=== PATIENT | female | born 1955 | race Caucasian/White ===

== ENCOUNTER 2016-08-08 08:13 | Observation (INO) | payer OTHER ==
[2016-08-08 08:29] VITALS: BMI 21.4
--- NOTE | 2016-08-08 08:46 | PDOC ---
History of Present Illness - General Chief Complaint: Syncope/Near Syncope Stated Complaint: SYNCOPY Time Seen by Provider: 08/08/16 08:36 History Source: Patient Exam Limitations: No Limitations - History of Present Illness Initial Comments: CHIEF COMPLAINT: 61 y/o afebrile female with PMH MR, depression, hypothyroidism sent in from [facility] for syncopal episode. HISTORY OF PRESENT ILLNESS: The [facility] employee who is here with the patient states she got up from the dining table to go to the bathroom this morning and passed out. The employee was able to catch the patient and gently lower her to the ground. She admits the patient was a little "groggy" at first but returned to normal mentation very quickly. Prior to getting up to go to the bathroom the patient had complained of abdominal pain. The [facility] worker denies head trauma, fever, n/v/d, CP, SOB, back pain, decreased appetite. The [employer] employee states the patient has normal BMs. The patient did have breakfast prior to syncopal episode. The patient states she currently has no pain. Vital signs on arrival are within normal limits. REVIEW OF SYSTEMS: (Provided by jail worker) GENERAL/CONSTITUTIONAL: No fever/chills. No weakness. No weight change. HEAD, EYES, EARS, NOSE AND THROAT: No ear pain or discharge. No sore throat. CARDIOVASCULAR: No chest pain or shortness of breath. RESPIRATORY: No cough, wheezing, or hemoptysis. GASTROINTESTINAL: +abd pain. No nausea, vomiting, diarrhea, constipation. GENITOURINARY: No dysuria, frequency, or change in urination. MUSCULOSKELETAL: No joint or muscle swelling or pain. No neck or back pain. SKIN: No rash or easy bruising. NEUROLOGIC: +LOC. No headache, vertigo, or loss of sensation. PHYSICAL EXAM: GENERAL: The patient is awake, alert, and fully oriented, in no acute distress. She is currently denying pain. HEAD: Normal with no signs of trauma. ENT: Pupils equal, round and reactive to light, extraocular movements intact, sclera anicteric, conjunctiva clear. Neck supple. LUNGS: Clear to auscultation bilaterally. Normal excursion. No respiratory distress or use of accessory muscles. CV: RRR, S1/S2, no MRG. Cap refill < 2 sec. ABDOMEN: Soft, non-distended, very minimal TTP of epigastric region. EXTREMITIES: Normal range of motion, no edema. NEUROLOGICAL: Normal speech, normal gait. CN II-XII grossly intact. PSYCH: Normal mood, normal affect. SKIN: Warm, dry, normal turgor, no rashes or lesions noted. Past History - Past Medical History Allergies/Adverse Reactions: Allergies Allergy/AdvReac Type Severity Reaction Status Date / Time aspirin Allergy Unknown Verified 08/08/16 08:26 Sulfa (Sulfonamide Allergy Unknown Verified 08/08/16 08:26 Antibiotics) Home Medications: Ambulatory Orders Calcium Carbonate/Vitamin D3 [Calcium 600 + Vit D 200 Tablet] 1 each PO BID Cholecalciferol (Vitamin D3) [Vitamin D3 -] 2,000 unit PO DAILY 08/08/16 Docusate Sodium [Colace -] 100 mg PO BID 08/08/16 Fluoxetine HCl [Prozac] 40 mg PO DAILY 08/08/16 Levothyroxine [Synthroid -] 100 mcg PO DAILY 08/08/16 Multivitamin [Poly-Vitamin] 1 each PO DAILY 08/08/16 Cardiac Disorders: Yes (VALVE DEFECT) Thyroid Disease: Yes (HYPO) - Psycho/Social/Smoking Cessation Hx Anxiety: No Suicidal Ideation: No Smoking Status: No Smoking History: Never smoked Have you smoked in the past 12 months: No Number of Cigarettes Smoked Daily: 0 Information on smoking cessation initiated: No Hx Alcohol Use: No Drug/Substance Use Hx: No Substance Use Type: None *Physical Exam - Vital Signs Last Vital Signs Temp Pulse Resp BP Pulse Ox 97.5 F L 66 20 122/70 97 08/08/16 08:27 08/08/16 08:27 08/08/16 08:27 08/08/16 08:27 08/08/16 08:27 Heart Score/ECG Review - History History: Slightly suspicious - Electrocardiogram EKG: Non specific repolarization disturbance - Age Age: 45-65 - Risk Factors Based on the list above the patient has:: No risk factors known - Troponin Troponin: </= normal limit - Score Heart Score - Total: 2 - ECG Intrepretation Comment:: Twelve-lead EKG was performed and reviewed by Dr. Thomas. There is normal sinus rhythm with a normal rate. The axis is normal. The intervals are normal. Nonspecific ST abnormality. Impression: Abnormal twelve-lead EKG ED Treatment Course - LABORATORY CBC & Chemistry Diagram: 08/08/16 09:00 08/08/16 09:00 Medical Decision Making - Medical Decision Making A/P: 61 y/o afebrile female with syncopal episode today. Plan is as follows: 1. EKG 2. Labs 3. UA/culture 4. IV fluids EKG unremarkable Labs unremarkable UA normal Patient has no history of syncope. Will admit to obs tele for echo. Paged hospitalist. *DC/Admit/Observation/Transfer Diagnosis at time of Disposition: Syncope and collapse - Discharge Dispostion Condition at time of disposition: Stable Admit: Yes - Patient Instructions Printed Discharge Instructions: DI for Syncope in Adults (Fainting)
[2016-08-08] MEDS ORDERED: SODIUM CHLORIDE 1,000 ML IV STA (08:47)
[2016-08-08 09:16] LABS: EOSINOPHIL 0.3 % (0-4.5); MCH 34.1 pg (25.7-33.7); MCHC 33.4 g/dl (32.0-36.0); MEAN CELL VOLUME 102.1 fl (80-96); MEAN PLT VOLUME 8.6 fl (7.5-11.1); PLATELET COUNT 344 K/MM3 (134-434); RDW 13.7 % (11.6-15.6); WHITE BLOOD COUNT 4.1 K/mm3 (4.0-10.0)
[2016-08-08 09:37] LABS: ALBUMIN 3.1 g/dl (3.4-5.0); ANION GAP 9 (8-16); BILIRUBIN,TOTAL 0.4 mg/dL (0.2-1.0); CALCIUM 8.5 mg/dL (8.5-10.1); CO2 30 mmol/L (21-32); CREATININE 0.8 mg/dL (0.55-1.02); GLUCOSE,RANDOM 137 mg/dL (74-106); SGPT/ALT 22 U/L (12-78)
[2016-08-08 09:39] LABS: ALK PHOS 73 U/L (45-117); TROPONIN I < 0.02 ng/ml (0.00-0.05)
[2016-08-08 09:41] LABS: SGOT/AST 35 U/L (15-37)
[2016-08-08 09:43] LABS: URINE APPEARANCE TURBID; URINE BILIRUBIN NEGATIVE (NEGATIVE); URINE BLOOD NEGATIVE (NEGATIVE); URINE COLOR YELLOW; URINE GLUCOSE (UA) NEGATIVE (NEGATIVE); URINE KETONE NEGATIVE (NEGATIVE); URINE LEUK ESTERASE NEGATIVE (NEGATIVE); URINE NITRITE NEGATIVE (NEGATIVE); URINE PROTEIN NEGATIVE (NEGATIVE); URINE UROBILINOGEN NEGATIVE E.U./dl (0.2-1.0)
--- NOTE | 2016-08-08 10:27 | PN ---
Progress Note (short form) - Note Progress Note: Consult dictated Presyncopal episode of unclear etiology REC: Tele Echo Carotid US Orthostatics Consider neuro eval. Thanks.
[2016-08-08] MEDS ORDERED: ONDANSETRON 4 MG/2 ML VIAL IVPB PRN (10:55)
[2016-08-08] MEDS ORDERED: ACETAMINOPHEN 325 MG TABLET (FP) PO PRN (10:55)
--- NOTE | 2016-08-08 11:05 | HP ---
CHIEF COMPLAINT: Passed out HISTORY OF PRESENT ILLNESS: This is a 61-year-old woman from [facility] who was sent to the ER after passing out. Staff from the facility stated that the patient got up to go to the bathroom after eating breakfast this morning and passed out. She was caught and lowered to the ground. She had complained of abdominal pain prior. The patient states she currently feels well. She denies chest pain, shortness of breath, abdominal pain, nausea. PAST MEDICAL HISTORY Down syndrome Hypothyroidism Depression PAST SURGICAL HISTORY None Allergies aspirin Allergy (Unknown, Verified 08/08/16 08:26) Sulfa (Sulfonamide Antibiotics) Allergy (Unknown, Verified 08/08/16 08:26) HOME MEDICATIONS 3 Medication Instructions Recorded Calcium Carbonate/Vitamin D3 1 each PO BID 08/08/16 [Calcium 600 + Vit D 200 Tablet] Cholecalciferol (Vitamin D3) 2,000 unit PO DAILY 08/08/16 [Vitamin D3 -] Docusate Sodium [Colace -] 100 mg PO BID 08/08/16 Fluoxetine HCl [Prozac] 40 mg PO DAILY 08/08/16 Levothyroxine [Synthroid -] 100 mcg PO DAILY 08/08/16 Multivitamin [Poly-Vitamin] 1 each PO DAILY 08/08/16 Social History: Smoking: Never smoked Alcohol: None Drugs: None Recent Travel: No Family History: Unable to obtain REVIEW OF SYSTEMS Unable to obtain PHYSICAL EXAMINATION Vital Signs - 24 hr 08/08/16 08:27 Temperature 97.5 F L Pulse Rate 66 Respiratory 20 Rate Blood Pressure 122/70 O2 Sat by Pulse 97 Oximetry (%) GENERAL: Awake, alert, and in no acute distress. HEAD: Normal with no signs of trauma. EYES: Pupils equal, round and reactive to light, sclerae anicteric, conjunctivae clear. EARS, NOSE, THROAT: Ears normal, nares patent, oropharynx clear without exudates. Moist mucous membranes. NECK: Normal range of motion, supple without lymphadenopathy, JVD, or masses. LUNGS: Breath sounds equal, clear to auscultation bilaterally. No wheezes, and no crackles. No accessory muscle use. HEART: Regular rate and rhythm, normal S1 and S2 without murmur, rub or gallop. ABDOMEN: Soft, nontender, not distended, normoactive bowel sounds, no guarding, no rebound, no masses. No hepatomegaly or splenomegaly. MUSCULOSKELETAL: Normal range of motion at all joints. No bony deformities or tenderness. No CVA tenderness. UPPER EXTREMITIES: 2+ pulses, warm, well-perfused. No cyanosis. No clubbing. No peripheral edema. LOWER EXTREMITIES: 2+ pulses, warm, well-perfused. No calf tenderness. No peripheral edema. NEUROLOGICAL: Unable to fully assess. Moving all extremities. Normal speech. Sensation grossly intact. PSYCHIATRIC: Unable to assess. SKIN: Warm, dry, normal turgor, no rashes or lesions noted, normal capillary refill. Laboratory Results - last 24 hr 08/08/16 08/08/16 08/08/16 09:00 09:00 09:30 WBC 4.1 RBC 4.02 Hgb 13.7 Hct 41.1 MCV 102.1 H MCHC 33.4 RDW 13.7 Plt Count 344 MPV 8.6 Neutrophils % 67.0 Lymphocytes % 21.6 Monocytes % 10.1 Eosinophils % 0.3 Basophils % 1.0 Sodium 141 Potassium 4.4 Chloride 102 Carbon Dioxide 30 Anion Gap 9 BUN 16 Creatinine 0.8 Creat Clearance w eGFR > 60 Random Glucose 137 H Calcium 8.5 Total Bilirubin 0.4 AST 35 ALT 22 Alkaline Phosphatase 73 Creatine Kinase 122 Troponin I < 0.02 Total Protein 7.0 Albumin 3.1 L Urine Color Yellow Urine Appearance Turbid Urine pH 8.0 Ur Specific [place] 1.015 Urine Protein Negative Urine Glucose (UA) Negative Urine Ketones Negative Urine Blood Negative Urine Nitrite Negative Urine Bilirubin Negative Urine Urobilinogen Negative Ur Leukocyte Esterase Negative EKG: Sinus rhythm, rate 66. No ischemic changes. Head CT: Pending. ASSESSMENT/PLAN: This is a 61-year-old woman with a history of Down syndrome, hypothyroidism and depression who comes to the ER from [facility] after she passed out after eating breakfast. She is being placed in observation now for further evaluation of an emergent condition. 1. Syncope - Observe on telemetry - Serial troponins - Carotid dopplers - Echocardiogram - Follow-up head CT - Monitor orthostatics - Check TSH 2. Hypothyroidism - Continue Synthroid - Check TSH 3. Depression - Continue Prozac 4. Down syndrome Problem List - Problem (1) Syncope and collapse Code(s): R55 - SYNCOPE AND COLLAPSE (2) Depression Code(s): F32.9 - MAJOR DEPRESSIVE DISORDER, SINGLE EPISODE, UNSPECIFIED (3) Down syndrome Code(s): Q90.9 - DOWN SYNDROME, UNSPECIFIED (4) Hypothyroidism Code(s): E03.9 - HYPOTHYROIDISM, UNSPECIFIED Visit type - Emergency Visit Emergency Visit: Yes ED Registration Date: 08/08/16 Care time: The patient presented to the Emergency Department on the above date and was hospitalized for further evaluation of their emergent condition. - New Patient This patient is new to me today: Yes Date on this admission: 08/08/16 - Critical Care Critical Care patient: No
--- NOTE | 2016-08-08 11:10 | PDOC ---
*Physical Exam - Vital Signs Last Vital Signs Temp Pulse Resp BP Pulse Ox 97.5 F L 66 20 122/70 97 08/08/16 08:27 08/08/16 08:27 08/08/16 08:27 08/08/16 08:27 08/08/16 08:27 ED Treatment Course - LABORATORY CBC & Chemistry Diagram: 08/08/16 09:00 08/08/16 09:00 - ADDITIONAL ORDERS Additional order review: Laboratory Results 08/08/16 08/08/16 09:30 09:00 Sodium 141 Potassium 4.4 Chloride 102 Carbon Dioxide 30 Anion Gap 9 BUN 16 Creatinine 0.8 Creat Clearance w eGFR > 60 Random Glucose 137 H Calcium 8.5 Total Bilirubin 0.4 AST 35 ALT 22 Alkaline Phosphatase 73 Creatine Kinase 122 Troponin I < 0.02 Total Protein 7.0 Albumin 3.1 L Urine Color Yellow Urine Appearance Turbid Urine pH 8.0 Ur Specific [place] 1.015 Urine Protein Negative Urine Glucose (UA) Negative Urine Ketones Negative Urine Blood Negative Urine Nitrite Negative Urine Bilirubin Negative Urine Urobilinogen Negative Ur Leukocyte Esterase Negative 08/08/16 09:00 RBC 4.02 MCV 102.1 H MCHC 33.4 RDW 13.7 MPV 8.6 Neutrophils % 67.0 Lymphocytes % 21.6 Monocytes % 10.1 Eosinophils % 0.3 Basophils % 1.0 - Medications Given in the ED: ED Medications Discontinued Medications Generic Name Dose Route Start Last Admin Trade Name Freq PRN Reason Stop Dose Admin Sodium Chloride 1,000 mls @ 1,000 mls/hr 08/08/16 08:47 08/08/16 09:35 Normal Saline - IV 08/08/16 09:46 1,000 mls/hr ASDIR STA Administration Medical Decision Making - Medical Decision Making 08/08/16 11:09 Patient seen and evaluated with the nurse practitioner. I agree with the overall evaluation, assessment, and management with the following summary of visit: 61-year-old female MR from the [facility] facility with syncopal episode without trauma. EKG and labs are within normal limits. Will place on observation for echo and telemetry monitoring. *DC/Admit/Observation/Transfer Diagnosis at time of Disposition: Syncope and collapse - Discharge Dispostion Condition at time of disposition: Stable
--- NOTE | 2016-08-08 12:43 | EKG ---
Test Reason : Blood Pressure : / mmHG Vent. Rate : 066 BPM Atrial Rate : 066 BPM P-R Int : 150 ms QRS Dur : 080 ms QT Int : 418 ms P-R-T Axes : 056 056 002 degrees QTc Int : 438 ms NORMAL SINUS RHYTHM POSSIBLE LEFT ATRIAL ENLARGEMENT NONSPECIFIC ST ABNORMALITY ABNORMAL ECG NO PREVIOUS ECGS AVAILABLE Confirmed by BELINDA GREER MD ([id number]) on 08/08/2016 12:43:08 PM Referred By: Confirmed By:BELINDA GREER MD
--- NOTE | 2016-08-08 13:03 | CONS ---
DATE OF CONSULTATION: 08/08/2016 REQUESTING PHYSICIAN: Dank Thomas MD, in the ER. REASON FOR CONSULTATION: For syncope. HISTORY OF PRESENT ILLNESS: The patient is a 61-year-old female with hypothyroidism and some form of chronic mental retardation, who had a presyncopal episode witnessed by her aide in [facility]. The aide reports that the patient was walking to the bathroom, her knees buckled, and she slumped slightly to the floor. There was no indication by the patient of any chest pain or any respiratory distress. There was no seizure-like activity. Based on review of her medical records, there is no history of previous myocardial infarction and no previous history of syncope. ALLERGIES: The patient is allergic to ASPIRIN and SULFA. MEDICATIONS: Her home medications include vitamin D, calcium, multivitamins, Synthroid 100 mcg daily, Prozac 40 mg daily, and Colace b.i.d. FAMILY HISTORY: Noncontributory. SOCIAL HISTORY: No history of smoking. PHYSICAL EXAMINATION: Vital signs: She is afebrile with a temperature of 97.5, pulse 66, blood pressure 122/70, O2 saturation 97% on room air. HEENT: She is anicteric with dry mucous membranes. Neck: There were no carotid bruits. Heart: Regular, without murmurs. Chest: Clear. Abdomen: Soft. Extremities: No edema. LABORATORIES: White count 4.1, hemoglobin 13.7, platelets 344. Sodium 141, potassium 4.4, BUN 16, creatinine 0.8. CK and troponin negative x1. Urinalysis was negative. ASSESSMENT: A 61-year-old female with mental retardation, unable to provide history, history of hypothyroidism, with a presyncopal episode. PLAN: 1. Telemetry to rule out arythmia. 2. Check orthostatics. 3. Echocardiogram. 4. Carotid ultrasound. 5. Head CT. 6. Check cardiac enzymes and TSH. 7. Consider neurology evaluation. Thank you for the consultation. KASIA SARMIENTO M.D. MARIA [id number]
[2016-08-08 13:33] LABS: TROPONIN I < 0.02 ng/ml (0.00-0.05)
[2016-08-08] MEDS: CALCIUM 500MG/VIT-D 200 UNITS COMBO TABLET (FP) PO SCH (22:11)
[2016-08-08] MEDS: DOCUSATE SODIUM 100 MG CAPSULE (FP) PO SCH (22:11)
[2016-08-08 22:39] LABS: TROPONIN I < 0.02 ng/ml (0.00-0.05)
[2016-08-09] MEDS ORDERED: LEVOTHYROXINE NA 100 MCG TABLET (FP) PO SCH (07:00)
[2016-08-09 07:46] LABS: MCH 34.7 pg (25.7-33.7); MCHC 34.2 g/dl (32.0-36.0); MEAN CELL VOLUME 101.7 fl (80-96); MEAN PLT VOLUME 8.3 fl (7.5-11.1); PLATELET COUNT 361 K/MM3 (134-434); RDW 13.4 % (11.6-15.6)
[2016-08-09 08:33] LABS: CALCIUM 8.7 mg/dL (8.5-10.1)
[2016-08-09 08:44] LABS: CREATININE 0.6 mg/dL (0.55-1.02); THYROID STIMULATING HORMONE 2.77 uIU/ml (0.358-3.74)
[2016-08-09] MEDS: DOCUSATE SODIUM 100 MG CAPSULE (FP) PO SCH (09:13)
[2016-08-09] MEDS: CALCIUM 500MG/VIT-D 200 UNITS COMBO TABLET (FP) PO SCH (09:13)
--- NOTE | 2016-08-09 09:37 | PN ---
Progress Note, Physician Chief Complaint: no distress TELE: NSR - Current Medication List Current Medications: Active Medications Acetaminophen (Tylenol -) 650 mg PO Q4H PRN PRN Reason: FEVER OR PAIN Calcium Carbonate/Cholecalciferol (Os-Krishna 500+D -) 1 tab PO BID [facility] Last Admin: 08/09/16 09:13 Dose: 1 tab Cholecalciferol (Vitamin D3 -) 2,000 unit PO DAILY [facility] Last Admin: 08/09/16 09:13 Dose: 2,000 unit Docusate Sodium (Colace -) 100 mg PO BID [facility] Last Admin: 08/09/16 09:13 Dose: 100 mg Fluoxetine HCl (Prozac -) 40 mg PO DAILY [facility] Last Admin: 08/09/16 09:13 Dose: 40 mg Levothyroxine Sodium (Synthroid -) 100 mcg PO DAILY@0700 [facility] Last Admin: 08/09/16 06:12 Dose: 100 mcg Multivitamins/Minerals/Vitamin C (Tab-A-Vit -) 1 tab PO DAILY [facility] Last Admin: 08/09/16 09:13 Dose: 1 tab Ondansetron HCl (Zofran Injection) 4 mg IVPB Q6H PRN PRN Reason: NAUSEA - Objective Vital Signs: Vital Signs Temperature 98.2 F 08/09/16 06:31 Pulse Rate 86 08/09/16 06:31 Respiratory Rate 20 08/09/16 06:31 Blood Pressure 125/79 08/09/16 06:31 O2 Sat by Pulse Oximetry (%) 98 08/08/16 21:00 Constitutional: Yes: Calm Cardiovascular: Yes: Regular Rate and Rhythm Respiratory: Yes: CTA Bilaterally Gastrointestinal: Yes: Soft Edema: No Labs: CBC, BMP 08/09/16 05:35 08/09/16 05:35 Laboratory Tests 08/08/16 08/08/16 08/08/16 09:00 12:25 14:35 WBC Hgb Plt Count Potassium Creatinine Troponin I < 0.02 < 0.02 < 0.02 08/08/16 08/08/16 08/09/16 20:15 20:15 05:35 WBC Hgb Plt Count Potassium 4.3 Creatinine 0.6 D Troponin I < 0.02 < 0.02 08/09/16 05:35 WBC 5.0 Hgb 13.0 Plt Count 361 Potassium Creatinine Troponin I - ....Imaging EKG: Image Reviewed Assessment/Plan Consult dictated Presyncopal episode of unclear etiology REC: Tele thus far unrevealing. Awaiting echo and Carotid US Head CT negative Consider neuro eval.
[2016-08-09] MEDS ORDERED: MULTIVITAMINS (DAILY MVI) TABLET (FP) PO SCH (10:00)
[2016-08-09] MEDS ORDERED: FLUoxetine HCL 20 MG CAPSULE (FP) PO SCH (10:00)
[2016-08-09] MEDS ORDERED: CHOLECALCIFEROL (VITAMIN D3) 1,000 UNIT TABLET (FP) PO SCH (10:00)
--- NOTE | 2016-08-09 13:52 | DS ---
Physical Exam: SUBJECTIVE: Patient seen and examined Pt is alert and awake pt is comfortable no s/s fo distress no dizziness no n/v no chest pain or sob OBJECTIVE: Vital Signs Period Temp Pulse Resp BP Sys/[place] Pulse Ox Last 24 Hr 97.6 F-98.2 F 76-108 18-20 117-155/72-85 98 PHYSICAL EXAM GENERAL: The patient is awake, alert, and oriented to person, unknown if oriented to time and place due to MR, in no acute distress. HEAD: no signs of trauma. EYES: PERRL, extraocular movements intact, sclera anicteric, conjunctiva clear. ENT: Ears normal, nares patent, oropharynx clear without exudates, moist mucous membranes. NECK: Trachea midline, full range of motion, supple. LUNGS: Breath sounds equal, clear to auscultation bilaterally, no wheezes, no crackles, no accessory muscle use. HEART: Regular rate and rhythm, S1, S2 with systolic murmur 3/6, rub or gallop. ABDOMEN: Soft, nontender, nondistended, normoactive bowel sounds, no guarding, no rebound, no hepatosplenomegaly, no masses. EXTREMITIES: 2+ pulses, warm, well-perfused, no edema. NEUROLOGICAL: Cranial nerves II through XII grossly intact. speech nis not clear due to MR and Down syndrome, ambulate. Strength 5/5 in all ext, no deficit to light touch sensation. PSYCH: Normal mood, normal affect. SKIN: Warm, dry, normal turgor, no rashes or lesions noted. LABS Laboratory Results - last 24 hr 08/08/16 08/08/16 08/08/16 14:35 20:15 20:15 WBC RBC Hgb Hct MCV MCHC RDW Plt Count MPV Sodium Potassium Chloride Carbon Dioxide Anion Gap BUN Creatinine Random Glucose Calcium Creatine Kinase 110 Troponin I < 0.02 < 0.02 < 0.02 TSH 08/09/16 08/09/16 05:35 05:35 WBC 5.0 RBC 3.73 Hgb 13.0 Hct 38.0 MCV 101.7 H MCHC 34.2 RDW 13.4 Plt Count 361 MPV 8.3 Sodium 143 Potassium 4.3 Chloride 105 Carbon Dioxide 32 Anion Gap 6 L BUN 14 Creatinine 0.6 D Random Glucose 89 D Calcium 8.7 Creatine Kinase Troponin I TSH 2.77 Home Medications Medication Instructions Recorded Calcium Carbonate/Vitamin D3 1 each PO BID 08/08/16 [Calcium 600-Vit D3 200 Tablet] Cholecalciferol (Vitamin D3) 2,000 unit PO DAILY 08/08/16 [Vitamin D3 -] Docusate Sodium [Colace -] 100 mg PO BID 08/08/16 Fluoxetine HCl [Prozac] 40 mg PO DAILY 08/08/16 Levothyroxine [Synthroid -] 100 mcg PO DAILY 08/08/16 Multivitamin [Poly-Vitamin] 1 each PO DAILY 08/08/16 HOSPITAL COURSE: Date of Admission:08/08/16 This is a 61-year-old woman from [facility] who was sent to the ER after passing out. Staff from the facility stated that the patient got up to go to the bathroom after eating breakfast this morning and passed out. She was caught and lowered to the ground. She had complained of abdominal pain prior. The patient states she currently feels well. She denies chest pain, shortness of breath, abdominal pain, nausea. 61 year old female from [facility] present to Ed s/p Syncope. Since pt was going to bathroom possible etiology includes vasovagal, no sizure likel activity , no postictal phase, no chest or palpitation, sob. Pt was placed on Observation on telemetry. serial troponins were negative. Carotid dopplers showed no stenosis. Echocardiogram was essentially normal. Head CT was negative. orthostatics vitals were normal. TSH was 2.7 within within normal limit. NO event on the child monitor overnight. Pt has been asymptomatic since then. Pt is to Continue all her home medication. Follow up with Neurologist Dr Ceja within 1-2 weeks. Pt is to follow up with PCP within 1 week. Date of Discharge: 08/09/16 Minutes to complete discharge: 40 Discharge Summary Reason For Visit: SYNCOPE AND COLLAPSE Current Active Problems Depression (Chronic) Down syndrome (Chronic) Hypothyroidism (Chronic) Condition: Stable - Instructions Diet, Activity, Other Instructions: Discharge Home Resume Home activity Resume Home diet Resume Home medication Follow up with neurology within 1-2 weeks Referrals: Eder Ceja MD [Staff Physician] - Disposition: HOME - Home Medications Comprehensive Discharge Medication List: Ambulatory Orders Calcium Carbonate/Vitamin D3 [Calcium 600-Vit D3 200 Tablet] 1 each PO BID 08/08 Cholecalciferol (Vitamin D3) [Vitamin D3 -] 2,000 unit PO DAILY 08/08/16 Docusate Sodium [Colace -] 100 mg PO BID 08/08/16 Fluoxetine HCl [Prozac] 40 mg PO DAILY 08/08/16 Levothyroxine [Synthroid -] 100 mcg PO DAILY 08/08/16 Multivitamin [Poly-Vitamin] 1 each PO DAILY 08/08/16 This patient is new to me today: Yes Date on this admission: 08/09/16 Emergency Visit: Yes ED Registration Date: 08/08/16 Care time: The patient presented to the Emergency Department on the above date and was hospitalized for further evaluation of their emergent condition. Critical Care patient: No - Discharge Referral Referred to [facility] Med P.C.: No
[2016-08-09 13:56] VITALS: BP 135/55; PULSE 84; TEMP 98.4
--- NOTE | 2016-08-09 14:48 | PN ---
Teaching Attending Note Name of Resident: Jermaine Gordon ATTENDING PHYSICIAN STATEMENT I saw and evaluated the patient. I reviewed the resident's note and discussed the case with the resident. I agree with the resident's findings and plan as documented. SUBJECTIVE:information per aid who is present pt was in normal state of health and finished eating breakfast stated she had to go to the bathroom and got up herself to walk there. lost consciousness while ambulating the bathroom, did not fall and hit her head as she was caught by a nearby aid and lowered to the ground. pt woke up herself several seconds later. she was slightly confused but this is her typical baseline, no recollection of loosing consciousness or symptoms prior to or after the event. had no complaints the last few days other than urinary frequency. no reports tonic/clonic movement, bowel incontinence, biting tongue, foaming at the mouth. no episodes in the past, at the moment pt is sitting in chair and alert OBJECTIVE: Last Vital Signs Temp Pulse Resp BP Pulse Ox 98.4 F 84 20 135/55 98 08/09/16 13:55 08/09/16 13:55 08/09/16 13:55 08/09/16 13:55 08/09/16 13:00 General NAD CV S1 S2 RRR no murmur/rub/gallop no carotid bruit Lungs CTA B/L no wheezing/rales/rhonchi ASSESSMENT AND PLAN: 61yo F with PMH Downs syndrome, dementia, hypothyroidism presented to the ER and was admitted for further evaluation of their emergent condition 1. Syncope- likely orthostatic. cardiac markers neg x3. no repeated episodes. no events on lunchroom monitor. carotid doppler, echo negative. evaluated by cardio. UA negative for infection. received IVF in the ED. no orthostatic vitals done. d/c to [facility].
== END 2016-08-09 16:42 | disposition home or self-care (01) ==
LOC: JER 08:13 → JERBED 10:03 → J4W 11:16
PROVIDERS: ADMIT Internal Medicine; ATTEND Internal Medicine
DX: R55 Syncope and collapse (principal); E03.9 Hypothyroidism, unspecified; Q90.9 Down syndrome, unspecified; F32.9 Major depressive disorder, single episode, unspecified; F79 Unspecified intellectual disabilities
CPT/HCPCS: 36415; 70450-TC; 80048; 80053; 81003; 82550; 84443; 84484; 85025; 85027; 93005; 93010; 93306-TC; 93880-TC; 97116-GP; 97161-GP; 99285-25; G0378

== ENCOUNTER 2017-01-04 09:08 | Observation (INO) | payer OTHER ==
[2017-01-04 10:11] LABS: BASOPHIL 0.6 % (0-2.0); EOSINOPHIL 0.1 % (0-4.5); MCH 34.7 pg (25.7-33.7); MCHC 33.9 g/dl (32.0-36.0); MEAN CELL VOLUME 102.5 fl (80-96); NEUTROPHILS 83.4 % (42.8-82.8); PLATELET COUNT 264 K/MM3 (134-434); RDW 14.2 % (11.6-15.6); WHITE BLOOD COUNT 10.5 K/mm3 (4.0-10.0)
--- NOTE | 2017-01-04 10:14 | PDOC ---
History of Present Illness - General Chief Complaint: Seizure Stated Complaint: POSSIBLE SEIZURE Time Seen by Provider: 01/04/17 09:18 - History of Present Illness Initial Comments: 01/04/17 10:08 The patient is a 61 year old female, with a significant past medical history of Down's syndrome, Hypothyroidism, Osteoporosis, severe dementia from [facility] who presents to the emergency department after syncopizing in the bathroom. Patient presents with recycling worker who states the patient was having breakfast and went to the bathroom. As per recycling worker, patient was seen holding the wall and subsequently passed out. Art Model caught her and lowered her to the ground. Patient was unconscious for about 5 seconds before awakening. However, while pt was still lying on the floor, she became unresponsive once more, again for about 5 seconds. Pt was back to baseline mentation after about 10 minutes. Art Model denies seeing any, convulsions, seizure activity or tongue biting. She denies that pt had any type of fall or headstrike. She denies chest pain, headache or dizziness. She denies fever, chills, abdominal pain, nausea, vomit, diarrhea or constipation. She denies dysuria, frequency, urgency or hematuria. Allergies: Aspirin, Sulfonamide antibiotics Past surgical history: None Social history: None PCP: None Past History - Past Medical History Allergies/Adverse Reactions: Allergies Allergy/AdvReac Type Severity Reaction Status Date / Time aspirin Allergy Unknown Verified 01/04/17 09:11 Sulfa (Sulfonamide Allergy Unknown Verified 01/04/17 09:11 Antibiotics) Home Medications: Ambulatory Orders Calcium Carbonate/Vitamin D3 [Calcium 600-Vit D3 200 Tablet] 1 each PO BID 08/08 Cholecalciferol (Vitamin D3) [Vitamin D3 -] 2,000 unit PO DAILY 08/08/16 Docusate Sodium [Colace -] 100 mg PO BID 08/08/16 Fluoxetine HCl [Prozac] 40 mg PO DAILY 08/08/16 Levothyroxine [Synthroid -] 100 mcg PO DAILY 08/08/16 Multivitamin [Poly-Vitamin] 1 each PO DAILY 08/08/16 Risperidone 0.25 mg PO HS 01/04/17 Cardiac Disorders: Yes (VALVE DEFECT) Thyroid Disease: Yes (HYPO) - Immunization History Immunization Up to Date: Yes - Psycho/Social/Smoking Cessation Hx Anxiety: No Suicidal Ideation: No Smoking Status: No Smoking History: Never smoked Have you smoked in the past 12 months: No Number of Cigarettes Smoked Daily: 0 Hx Alcohol Use: No Drug/Substance Use Hx: No Substance Use Type: None Review of Systems - Review of Systems Comments:: 01/04/17 10:12 " GENERAL/CONSTITUTIONAL: No fever or chills. No weakness. HEAD, EYES, EARS, NOSE AND THROAT: No change in vision. No ear pain or discharge. No sore throat. GASTROINTESTINAL: No nausea, vomiting, diarrhea or constipation. GENITOURINARY: No dysuria, frequency, or change in urination. CARDIOVASCULAR: No chest pain or shortness of breath. RESPIRATORY: No cough, wheezing, or hemoptysis. MUSCULOSKELETAL: No joint or muscle swelling or pain. No neck or back pain. SKIN: No rash NEUROLOGIC: +LOC. No headache, vertigo,or change in strength/sensation. ENDOCRINE: No increased thirst. No abnormal weight change. HEMATOLOGIC/LYMPHATIC: No anemia, easy bleeding, or history of blood clots. ALLERGIC/IMMUNOLOGIC: No hives or skin allergy. " *Physical Exam - Vital Signs Last Vital Signs Temp Pulse Resp BP Pulse Ox 98.0 F 70 20 95/51 98 01/04/17 09:11 01/04/17 09:11 01/04/17 09:11 01/04/17 09:11 01/04/17 09:11 - Physical Exam Comments: 01/04/17 10:12 "GENERAL: Awake, alert, and fully oriented, in no acute distress HEAD: No signs of trauma EYES: PERRLA, EOMI, sclera anicteric, conjunctiva clear ENT: Auricles normal inspection, hearing grossly normal, nares patent, oropharynx clear without exudates. Moist mucosa NECK: Normal ROM, supple, no lymphadenopathy, JVD, or masses LUNGS: Breath sounds equal, clear to auscultation bilaterally. No wheezes, and no crackles HEART: Regular rate and rhythm, normal S1 and S2, no murmurs, rubs or gallops ABDOMEN: Soft, nontender, normoactive bowel sounds. No guarding, no rebound. No masses EXTREMITIES: Normal range of motion, no edema. No clubbing or cyanosis. No cords, erythema, or tenderness NEUROLOGICAL: Cranial nerves II through XII grossly intact. Normal speech, normal gait SKIN: Warm, Dry, normal turgor, no rashes or lesions noted. " Heart Score/ECG Review - ECG Impressions Comment:: 01/04/17 11:02 NSR, no ALTON/STDs, no TWIs, intervals wnl, axis normal ED Treatment Course - LABORATORY CBC & Chemistry Diagram: 01/04/17 09:49 01/04/17 11:30 - RADIOLOGY Radiology Studies Ordered: Category Date Time Status CHEST PA & LAT [RAD] Stat Radiology 01/04/17 09:36 Ordered Medical Decision Making - Medical Decision Making 01/04/17 10:13 61 F presenting with syncopal episode. History and exam with no evidence of seizure activity. Pt at baseline mentation upon presentation to ER, with no noted post-ictal period. Syncope was likely vasovagal as pt had just gotten up to go to the bathroom. However, certain features are concerning for cardiac syncope, such as the second syncopal episode and syncope while lying flat. - Labs, cardiac enzymes, EKG - CXR, UA *DC/Admit/Observation/Transfer Diagnosis at time of Disposition: Syncope - Discharge Dispostion Condition at time of disposition: Stable Admit: Yes - Attestations Physician Attestion: 01/04/17 12:48 I, Dr. Peterson Brandt MD, attest that this document has been prepared under my direction and personally reviewed by me in its entirety. I further attest, that it accurately reflects all work, treatment, procedures and medical decision -making performed by me.
[2017-01-04 10:47] LABS: URINE APPEARANCE SLCLOUDY; URINE BILIRUBIN NEGATIVE (NEGATIVE); URINE BLOOD NEGATIVE (NEGATIVE); URINE COLOR YELLOW; URINE GLUCOSE (UA) NEGATIVE (NEGATIVE); URINE KETONE NEGATIVE (NEGATIVE); URINE NITRITE NEGATIVE (NEGATIVE); URINE PROTEIN NEGATIVE (NEGATIVE); URINE UROBILINOGEN NEGATIVE mg/dL (0.2-1.0)
[2017-01-04 10:55] LABS: URINE LEUK ESTERASE 2+ (NEGATIVE)
[2017-01-04 11:04] LABS: URINE HYALINE CAST 3 /lpf; URINE MUCUS RARE; URINE RBC 1 /hpf (0-3); URINE WBC 13 /hpf (3-5)
[2017-01-04 12:23] LABS: ALBUMIN 3.4 g/dl (3.4-5.0); ANION GAP 7 (8-16); BILIRUBIN,TOTAL 0.6 mg/dL (0.2-1.0); CALCIUM 8.6 mg/dL (8.5-10.1); CO2 32 mmol/L (21-32); CREATININE 0.8 mg/dL (0.55-1.02); GLUCOSE,RANDOM 83 mg/dL (74-106); SGOT/AST 28 U/L (15-37); SGPT/ALT 26 U/L (12-78); TOT PROT 7.2 g/dl (6.4-8.2)
[2017-01-04 12:25] LABS: ALK PHOS 91 U/L (45-117); CPK 101 IU/L (26-192); TROPONIN I < 0.02 ng/ml (0.00-0.05)
--- NOTE | 2017-01-04 14:04 | HP ---
CHIEF COMPLAINT: fall PCP: HISTORY OF PRESENT ILLNESS: 61 yo F with significant pmhx of Down syndrome, hypothyroidism, depression and dementia presents [facility] who presents to ER s/p witnessed fall today.Her aide is the main historian due to her MR and dementia. She was at her adult home when she told her aide that she need to use the restroom. Aide went with her to restroom and when going to sit the aide noticed she she was falling to floor. Her aide caught her before she hit floor. The patient did lose consciousness for a few seconds and lose bladder function. When she awoke she was not herself when she regained consciousness and aide mentions she had a blank stare and was not responding as she normally does. She also had some lower ext. weakness and possible paralysis. After approx. 20 min she was back to baseline. She had a very similar event in July of 2016. She had holster monitor placed and no arrhythmias appreciated. Of note she started of Respiradone in July for depression. Patients denies CP,ELIZABETH, SOB, abd. pain, n/ v. ER course was notable for: (1)EKG shows NSR with no st or t wave changes. (2)CXR show no acute pathology (3) Recent Travel:denies PAST MEDICAL HISTORY:Down syndrome, hypothyroidism, depression and dementia PAST SURGICAL HISTORY:none Social History: Smoking:no Alcohol:denies Drugs:denies Family History: Allergies aspirin Allergy (Unknown, Verified 01/04/17 09:11) Sulfa (Sulfonamide Antibiotics) Allergy (Unknown, Verified 01/04/17 09:11) HOME MEDICATIONS: Home Medications Medication Instructions Recorded Calcium Carbonate/Vitamin D3 1 each PO BID 08/08/16 [Calcium 600-Vit D3 200 Tablet] Cholecalciferol (Vitamin D3) 2,000 unit PO DAILY 08/08/16 [Vitamin D3 -] Docusate Sodium [Colace -] 100 mg PO BID 08/08/16 Fluoxetine HCl [Prozac] 40 mg PO DAILY 08/08/16 Levothyroxine [Synthroid -] 100 mcg PO DAILY 08/08/16 Multivitamin [Poly-Vitamin] 1 each PO DAILY 08/08/16 Risperidone 0.25 mg PO HS 01/04/17 REVIEW OF SYSTEMS CONSTITUTIONAL: Absent: fever, chills, diaphoresis, generalized weakness, malaise, loss of appetite, weight change HEENT: Absent: rhinorrhea, nasal congestion, throat pain, throat swelling, difficulty swallowing, mouth swelling, ear pain, eye pain, visual changes CARDIOVASCULAR:syncope Absent: chest pain, , palpitations, irregular heart rate, lightheadedness, peripheral edema RESPIRATORY: Absent: cough, shortness of breath, dyspnea with exertion, orthopnea, wheezing, stridor, hemoptysis GASTROINTESTINAL: Absent: abdominal pain, abdominal distension, nausea, vomiting, diarrhea, constipation, melena, hematochezia GENITOURINARY: Absent: dysuria, frequency, urgency, hesitancy, hematuria, flank pain, genital pain MUSCULOSKELETAL: Absent: myalgia, arthralgia, joint swelling, back pain, neck pain SKIN: Absent: rash, itching, pallor HEMATOLOGIC/IMMUNOLOGIC: Absent: easy bleeding, easy bruising, lymphadenopathy, frequent infections ENDOCRINE: Absent: unexplained weight gain, unexplained weight loss, heat intolerance, cold intolerance NEUROLOGIC: Absent: headache, focal weakness or paresthesias, dizziness, unsteady gait, seizure, mental status changes, bladder or bowel incontinence PSYCHIATRIC: anxiety, depression Absent: , suicidal or homicidal ideation, hallucinations. PHYSICAL EXAMINATION Vital Signs - 24 hr 01/04/17 09:11 Temperature 98.0 F Pulse Rate 70 Respiratory 20 Rate Blood Pressure 95/51 O2 Sat by Pulse 98 Oximetry (%) GENERAL: Awake, alert HEAD: NC/AT EYES: Right pupil dialated ,extraocular movements intact, sclera anicteric, conjunctiva clear. No lid lag. EARS, NOSE, THROAT: Ears normal, nares patent, oropharynx clear without exudates. Moist mucous membranes. NECK: supple, no jvd or LAD LUNGS: CTAB No wheezes, and no crackles. No accessory muscle use. HEART: RRR, normal S1 and S2 , 2/6 ALONSO RSB ABDOMEN: Soft, nontender, not distended, normoactive bowel sounds, no guarding, no rebound, no masses. No hepatomegaly or splenomegaly. MUSCULOSKELETAL: Normal range of motion at all joints. No bony deformities or tenderness. No CVA tenderness. UPPER EXTREMITIES: 2+ pulses, warm, well-perfused. No cyanosis. No clubbing. No peripheral edema. LOWER EXTREMITIES: 2+ pulses, warm, well-perfused. No calf tenderness. No peripheral edema. NEUROLOGICAL: Normal speech. Normal gait. PSYCHIATRIC: Anxious SKIN: Warm, dry, normal turgor, no rashes or lesions noted, normal capillary refill. Laboratory Results - last 24 hr 01/04/17 01/04/17 01/04/17 09:49 09:49 10:04 WBC 10.5 H D RBC 4.25 Hgb 14.8 D Hct 43.6 MCV 102.5 H MCH 34.7 H MCHC 33.9 RDW 14.2 Plt Count 264 D MPV 9.0 Neutrophils % 83.4 H D Lymphocytes % 8.9 D Monocytes % 7.0 Eosinophils % 0.1 Basophils % 0.6 Sodium Cancelled Potassium Cancelled Chloride Cancelled Carbon Dioxide Cancelled Anion Gap Cancelled BUN Cancelled Creatinine Cancelled Creat Clearance w eGFR Cancelled Random Glucose Cancelled Calcium Cancelled Total Bilirubin Cancelled AST Cancelled ALT Cancelled Alkaline Phosphatase Cancelled Creatine Kinase Troponin I B-Natriuretic Peptide Total Protein Cancelled Albumin Cancelled Urine Color Yellow Urine Appearance Slcloudy Urine pH 6.0 D Urine Protein Negative Urine Glucose (UA) Negative Urine Ketones Negative Urine Blood Negative Urine Nitrite Negative Urine Bilirubin Negative Urine Urobilinogen Negative Ur Leukocyte Esterase 2+ H Urine RBC 1 Urine WBC 13 Ur Epithelial Cells Rare Hyaline Casts 3 Urine Mucus Rare 01/04/17 11:30 WBC RBC Hgb Hct MCV MCH MCHC RDW Plt Count MPV Neutrophils % Lymphocytes % Monocytes % Eosinophils % Basophils % Sodium 139 Potassium 4.0 Chloride 100 Carbon Dioxide 32 Anion Gap 7 L BUN 18 D Creatinine 0.8 D Creat Clearance w eGFR > 60 Random Glucose 83 Calcium 8.6 Total Bilirubin 0.6 D AST 28 ALT 26 Alkaline Phosphatase 91 D Creatine Kinase 101 Troponin I < 0.02 B-Natriuretic Peptide 53.79 Total Protein 7.2 Albumin 3.4 Urine Color Urine Appearance Urine pH Urine Protein Urine Glucose (UA) Urine Ketones Urine Blood Urine Nitrite Urine Bilirubin Urine Urobilinogen Ur Leukocyte Esterase Urine RBC Urine WBC Ur Epithelial Cells Hyaline Casts Urine Mucus ASSESSMENT/PLAN: 61 yo F with significant pmhx of Down syndrome, hypothyroidism, depression and dementia placed of observation for possible syncope vs. seizure. Problem List - Problem (1) Syncope Assessment/Plan: * Placed on observation * Cardiac monitoring * Trends trops. * Echo pending. * Cardio consult. * Neuro consult for possible seizure. * CT head. * repeat CMP and TSH pending. (2) UTI (urinary tract infection) Assessment/Plan: * UA shows 2+ LE and some WBC's * Will give empiric Ceftriaxone 1gm daily * UC pending. Visit type - Emergency Visit Emergency Visit: Yes ED Registration Date: 01/04/17 Care time: The patient presented to the Emergency Department on the above date and was hospitalized for further evaluation of their emergent condition. - New Patient This patient is new to me today: Yes Date on this admission: 01/04/17 - Critical Care Critical Care patient: No
--- NOTE | 2017-01-04 15:07 | HP ---
CHIEF COMPLAINT: "Staring Spells" HISTORY OF PRESENT ILLNESS: History was taken from Supervising Aid from [facility] who was at bedside Pt is a 61yo F with a PMHx of Down Syndrome, Dementia, Hypothyroidism who presented with 2 episodes of staring spells within the past day. During the first episode, the patient was standing and suddenly began to stare with widened eyes. She then slowly began to lose her muscle tone and was caught by her aid before she fell. She did not have any tremors, no eye deviation, no unilateral functional deficits. She did not appear pale. This episode lasted 2- 3 minutes, the patient then started blinking again but within a couple of minutes she had another staring spell with limp posture that also lasted 2-3 minutes. There was associated urinary incontinence. After the episodes, the patient had a period of confusion. She did not have a recent illness, no recent fevers, no sick contacts, was started on Risperdal for agitation, dose was decreased recently. ER course was notable for: (1) Labs (2) EKG - NSR w/ QTc 441 Recent Travel: Denies PAST MEDICAL HISTORY: Downs Syndrome, Hypothyroidism, Osteoporosis, Dementia PAST SURGICAL HISTORY: None Social History: Patient lives in [facility] in [place] Smoking: Denies Alcohol: Denies Drugs: Denies Family History: Unknown Allergies aspirin Allergy (Unknown, Verified 01/04/17 09:11) Sulfa (Sulfonamide Antibiotics) Allergy (Unknown, Verified 01/04/17 09:11) HOME MEDICATIONS: Home Medications Medication Instructions Recorded Calcium Carbonate/Vitamin D3 1 each PO BID 08/08/16 [Calcium 600-Vit D3 200 Tablet] Cholecalciferol (Vitamin D3) 2,000 unit PO DAILY 08/08/16 [Vitamin D3 -] Docusate Sodium [Colace -] 100 mg PO BID 08/08/16 Fluoxetine HCl [Prozac] 40 mg PO DAILY 08/08/16 Levothyroxine [Synthroid -] 100 mcg PO DAILY 08/08/16 Multivitamin [Poly-Vitamin] 1 each PO DAILY 08/08/16 Risperidone 0.25 mg PO HS 01/04/17 REVIEW OF SYSTEMS CONSTITUTIONAL: Absent: fever, chills, diaphoresis, generalized weakness, malaise, loss of appetite, weight change HEENT: Absent: rhinorrhea, nasal congestion, throat pain, throat swelling, difficulty swallowing, mouth swelling, ear pain, eye pain, visual changes CARDIOVASCULAR: Absent: chest pain, syncope, palpitations, irregular heart rate, lightheadedness , peripheral edema RESPIRATORY: Absent: cough, shortness of breath, dyspnea with exertion, orthopnea, wheezing, stridor, hemoptysis GASTROINTESTINAL: Absent: abdominal pain, abdominal distension, nausea, vomiting, diarrhea, constipation, melena, hematochezia GENITOURINARY: Absent: dysuria, frequency, urgency, hesitancy, hematuria, flank pain, genital pain MUSCULOSKELETAL: Absent: myalgia, arthralgia, joint swelling, back pain, neck pain SKIN: Absent: rash, itching, pallor HEMATOLOGIC/IMMUNOLOGIC: Absent: easy bleeding, easy bruising, lymphadenopathy, frequent infections ENDOCRINE: Absent: unexplained weight gain, unexplained weight loss, heat intolerance, cold intolerance NEUROLOGIC: Absent: headache, focal weakness or paresthesias, dizziness, unsteady gait, seizure, mental status changes, bladder or bowel incontinence PSYCHIATRIC: Absent: anxiety, depression, suicidal or homicidal ideation, hallucinations. PHYSICAL EXAMINATION Vital Signs - 24 hr 01/04/17 01/04/17 09:11 13:59 Temperature 98.0 F 97.8 F Pulse Rate 70 Pulse Rate [ 68 Left Apical] Respiratory 20 96 H Rate Blood Pressure 95/51 Blood Pressure 106/63 [Right Arm] O2 Sat by Pulse 98 98 Oximetry (%) GEN: AAOx3, NAD HNT: Pupillary exam not tolerated, EOMi, No cervical LAD CV: S1, S2, RRR, no MRG LUNG: CTABL, no wheezes ABD: Soft, NT, ND MSK: No edema, no erythema Neuro: Cranial Nerves 2-12 grossly intact No sensation deficits MSK 5/5 in all extremities Reflexes 2+ in all extremities Laboratory Results - last 24 hr 01/04/17 01/04/17 01/04/17 09:49 09:49 10:04 WBC 10.5 H D RBC 4.25 Hgb 14.8 D Hct 43.6 MCV 102.5 H MCH 34.7 H MCHC 33.9 RDW 14.2 Plt Count 264 D MPV 9.0 Neutrophils % 83.4 H D Lymphocytes % 8.9 D Monocytes % 7.0 Eosinophils % 0.1 Basophils % 0.6 Sodium Cancelled Potassium Cancelled Chloride Cancelled Carbon Dioxide Cancelled Anion Gap Cancelled BUN Cancelled Creatinine Cancelled Creat Clearance w eGFR Cancelled Random Glucose Cancelled Calcium Cancelled Total Bilirubin Cancelled AST Cancelled ALT Cancelled Alkaline Phosphatase Cancelled Creatine Kinase Troponin I B-Natriuretic Peptide Total Protein Cancelled Albumin Cancelled Urine Color Yellow Urine Appearance Slcloudy Urine pH 6.0 D Urine Protein Negative Urine Glucose (UA) Negative Urine Ketones Negative Urine Blood Negative Urine Nitrite Negative Urine Bilirubin Negative Urine Urobilinogen Negative Ur Leukocyte Esterase 2+ H Urine RBC 1 Urine WBC 13 Ur Epithelial Cells Rare Hyaline Casts 3 Urine Mucus Rare 01/04/17 11:30 WBC RBC Hgb Hct MCV MCH MCHC RDW Plt Count MPV Neutrophils % Lymphocytes % Monocytes % Eosinophils % Basophils % Sodium 139 Potassium 4.0 Chloride 100 Carbon Dioxide 32 Anion Gap 7 L BUN 18 D Creatinine 0.8 D Creat Clearance w eGFR > 60 Random Glucose 83 Calcium 8.6 Total Bilirubin 0.6 D AST 28 ALT 26 Alkaline Phosphatase 91 D Creatine Kinase 101 Troponin I < 0.02 B-Natriuretic Peptide 53.79 Total Protein 7.2 Albumin 3.4 Urine Color Urine Appearance Urine pH Urine Protein Urine Glucose (UA) Urine Ketones Urine Blood Urine Nitrite Urine Bilirubin Urine Urobilinogen Ur Leukocyte Esterase Urine RBC Urine WBC Ur Epithelial Cells Hyaline Casts Urine Mucus ASSESSMENT/PLAN: Pt is a 61yo F with a hx of Down Syndrome who presents with staring spells with subsequent loss of muscle tone, likely an Atonic Seizure. Patient presented with similar complaints in July 2016, had negative echo and head CT. # Likely Atonic Seizure - Possibly precipitated by UTI vs Risperdal (can lower seizure threshold) - Treat UTI - Hold Risperdal - Stat head CT, consider MRI - TSH level - Seizure precautions - Consult neurology Dr. Ceja - Consult cardiology for possible syncope # UTI - Stat Ucx before abx, informed ER nurse - Pt allergic to Sulfa, will start IV Ceftriaxone 1gm QD - Transition to PO on discharge # Hx of Hypothyroidism - Continue Synthroid # Hx of MDD - Continue Fluoxetine # Hx of Osteoporosis - Continue Vitamin D # FEN - Fluids: None - Electrolytes: Monitor - Nutrition: Regular Diet # Prophylaxis - DVT: SCDs - GI: Not needed - Deconditioning: PT on hold, pt on seizure precautions # Dispo - Admit to tele - Monitor for seizures Dr. Katharina Ashraf, PGY-1 Internal Medicine Visit type - Emergency Visit Emergency Visit: Yes ED Registration Date: 01/04/17 Care time: The patient presented to the Emergency Department on the above date and was hospitalized for further evaluation of their emergent condition. - New Patient This patient is new to me today: Yes Date on this admission: 01/04/17 - Critical Care Critical Care patient: No
--- NOTE | 2017-01-04 15:07 | PN ---
Teaching Attending Note Name of Resident: Katharina Ashraf ATTENDING PHYSICIAN STATEMENT I saw and evaluated the patient. I reviewed the resident's note and discussed the case with the resident. I agree with the resident's findings and plan as documented. SUBJECTIVE: Patient is lying in bed with no acute distress, Aid is at bedside. No fever or chills, no shortness of breath. OBJECTIVE: Vital Signs Temperature 97.8 F 01/04/17 13:59 Pulse Rate 68 01/04/17 13:59 Respiratory Rate 96 H 01/04/17 13:59 Blood Pressure 106/63 01/04/17 13:59 O2 Sat by Pulse Oximetry (%) 98 01/04/17 13:59 CBCD WBC 10.5 K/mm3 (4.0-10.0) H D 01/04/17 09:49 RBC 4.25 M/mm3 (3.60-5.2) 01/04/17 09:49 Hgb 14.8 GM/dL (10.7-15.3) D 01/04/17 09:49 Hct 43.6 % (32.4-45.2) 01/04/17 09:49 MCV 102.5 fl (80-96) H 01/04/17 09:49 MCHC 33.9 g/dl (32.0-36.0) 01/04/17 09:49 RDW 14.2 % (11.6-15.6) 01/04/17 09:49 Plt Count 264 K/MM3 (134-434) D 01/04/17 09:49 MPV 9.0 fl (7.5-11.1) 01/04/17 09:49 CMP Sodium 139 mmol/L (136-145) 01/04/17 11:30 Potassium 4.0 mmol/L (3.5-5.1) 01/04/17 11:30 Chloride 100 mmol/L (98-107) 01/04/17 11:30 Carbon Dioxide 32 mmol/L (21-32) 01/04/17 11:30 Anion Gap 7 (8-16) L 01/04/17 11:30 BUN 18 mg/dL (7-18) D 01/04/17 11:30 Creatinine 0.8 mg/dL (0.55-1.02) D 01/04/17 11:30 Creat Clearance w eGFR > 60 (>60) 01/04/17 11:30 Random Glucose 83 mg/dL (74-106) 01/04/17 11:30 Calcium 8.6 mg/dL (8.5-10.1) 01/04/17 11:30 Total Bilirubin 0.6 mg/dL (0.2-1.0) D 01/04/17 11:30 AST 28 U/L (15-37) 01/04/17 11:30 ALT 26 U/L (12-78) 01/04/17 11:30 Alkaline Phosphatase 91 U/L (45-117) D 01/04/17 11:30 Total Protein 7.2 g/dl (6.4-8.2) 01/04/17 11:30 Albumin 3.4 g/dl (3.4-5.0) 01/04/17 11:30 CARDIAC ENZYMES Creatine Kinase 101 IU/L (26-192) 01/04/17 11:30 Troponin I < 0.02 ng/ml (0.00-0.05) 01/04/17 11:30 Current Medications Generic Name Dose Route Start Last Admin Trade Name Clarence PRN Reason Stop Dose Admin Calcium Carbonate/Cholecalciferol 1 tab 01/04/17 22:00 Os-Krishna 500+D - PO BID FOR[facility]LY [facility], [facility]1983 Cholecalciferol 2,000 unit 01/05/17 10:00 Vitamin D3 - PO DAILY [facility], [facility]1983 Docusate Sodium 100 mg 01/04/17 22:00 Colace - PO BID [facility], [facility]1983 Fluoxetine HCl 40 mg 01/05/17 10:00 Prozac - PO DAILY [facility], [facility]1983 Levothyroxine Sodium 100 mcg 01/05/17 07:00 Synthroid - PO DAILY@0700 FOR[facility], [facility]1983 Multivitamins/Minerals/Vitamin C 1 tab 01/05/17 10:00 Tab-A-Vit - PO DAILY FOR[facility], [facility] Home Medications Medication Instructions Recorded Calcium Carbonate/Vitamin D3 1 each PO BID 08/08/16 [Calcium 600-Vit D3 200 Tablet] Cholecalciferol (Vitamin D3) 2,000 unit PO DAILY 08/08/16 [Vitamin D3 -] Docusate Sodium [Colace -] 100 mg PO BID 08/08/16 Fluoxetine HCl [Prozac] 40 mg PO DAILY 08/08/16 Levothyroxine [Synthroid -] 100 mcg PO DAILY 08/08/16 Multivitamin [Poly-Vitamin] 1 each PO DAILY 08/08/16 Risperidone 0.25 mg PO HS 01/04/17 PE: Lying in bed with no acute distress. Heent: no erythema, no exudate, down syndrome features Chest: CTABL HEART: [id number] Neuro: Awake, answers to simple questions Rest of PE per resident's note ASSESSMENT AND PLAN: 61 yo F with significant pmhx of Down syndrome, hypothyroidism, depression and dementia placed of observation for possible syncope vs. seizure. # Acute Syncope vs seizure activity , patient never had a seizure activity before, as per Aid who is taking care the patient, started to have issues after starting on Risperadone. will get trops. , Echo pending.,Neuro consult for possible seizure activity, also will get Psych to see her for change of the medication since can cause seizure threshold activity. As per aid was started on Risperodone since patient was not sleeping at nights. # Hx of Depression/ Insomia patient was placed on Risperadone as per aid. # Hx of Down syndrome # Hx of Hypothyroidism continue meds. DVT Px: Lovenox 40mg sq
[2017-01-04 15:36] LABS: FREE T4 1.47 ng/dl (0.76-1.46); THYROID STIMULATING HORMONE 2.52 uIU/ml (0.358-3.74)
--- NOTE | 2017-01-04 15:49 | CON.CARD ---
Consult Consult Specialty:: Cardiology Referred by:: brianne green Reason for Consultation:: fall/?syncope - History of Present Illness Chief Complaint: fall History of Present Illness: 61 yo F with significant pmhx of Down syndrome, hypothyroidism, depression and dementia presents [facility] who presents to ER s/p witnessed fall today. As per the aide,the patient was going to use bathroom when aide noticed she was falling. Aide caught the patient and noticed patient had blank stare on her face. +incontinence. ?confusion after she came to. No chest pain, palpitations. No sob. Recently started on respiradone. - History Source History Provided By: Medical Record, Caregiver Limitations to Obtaining History: Dementia - Past Medical History [employer] WORK[employer]: Yes: Dementia - Alcohol/Substance Use Hx Alcohol Use: No - Smoking History Smoking history: Never smoked Have you smoked in the past 12 months: No Aproximately how many cigarettes per day: 0 Home Medications - Allergies Allergies/Adverse Reactions: Allergies Allergy/AdvReac Type Severity Reaction Status Date / Time aspirin Allergy Unknown Verified 01/04/17 09:11 Sulfa (Sulfonamide Allergy Unknown Verified 01/04/17 09:11 Antibiotics) - Home Medications Home Medications: Ambulatory Orders Calcium Carbonate/Vitamin D3 [Calcium 600-Vit D3 200 Tablet] 1 each PO BID 08/08 Cholecalciferol (Vitamin D3) [Vitamin D3 -] 2,000 unit PO DAILY 08/08/16 Docusate Sodium [Colace -] 100 mg PO BID 08/08/16 Fluoxetine HCl [Prozac] 40 mg PO DAILY 08/08/16 Levothyroxine [Synthroid -] 100 mcg PO DAILY 08/08/16 Multivitamin [Poly-Vitamin] 1 each PO DAILY 08/08/16 Risperidone 0.25 mg PO HS 01/04/17 Vital Signs: Vital Signs Temperature 97.8 F 01/04/17 13:59 Pulse Rate 68 01/04/17 13:59 Respiratory Rate 96 H 01/04/17 13:59 Blood Pressure 106/63 01/04/17 13:59 O2 Sat by Pulse Oximetry (%) 98 01/04/17 13:59 Constitutional: Yes: No Distress Neck: Yes: Supple Respiratory: Yes: CTA Bilaterally Gastrointestinal: Yes: Normal Bowel Sounds, Soft Cardiovascular: Yes: WNL, Regular Rate and Rhythm JVD: No Carotid Bruit: No Heart Sounds: Yes: S1, S2 Murmur: No: Systolic Murmur Edema: No Imaging - Results Chest X-ray: Report Reviewed Problem List - Problems (1) Syncope Code(s): R55 - SYNCOPE AND COLLAPSE Qualifiers: Syncope type: unspecified Qualified Code(s): R55 - Syncope and collapse Assessment/Plan 61 yo F with significant pmhx of Down syndrome, hypothyroidism, depression and dementia presents [facility] who presents to ER s/p witnessed fall today. As per the aide,the patient was going to use bathroom when aide noticed she was falling. Aide caught the patient and noticed patient had blank stare on her face. +incontinence. ?confusion after she came to. No chest pain, palpitations. No sob. Recently started on respiradone 1) Syncope -unclear etiology Echocardiogram unremarkable Carotid imaging in July 2016 unremarkable Admitted for similar episode in July with unremarkable cardiac work up. Reports had a holter monitor with Dr. Ferguson as an outpatient. CE's negative -Would admit to tele. Attempt to get holter records. Hydration -Neurology evaluation
--- NOTE | 2017-01-04 16:01 | CONSULT ---
Consult - text type - Consultation Consultation Note: Neurology History of Present Illness The patient is a 61 year old female, with a significant past medical history of Down's syndrome, Hypothyroidism, Osteoporosis, severe dementia from [facility] who presents to the emergency department after syncopizing in the bathroom. Patient presents with cushion former who states the patient was having breakfast and went to the bathroom. As per cushion former, patient was seen holding the wall and subsequently passed out. Stenotype Operator caught her and lowered her to the ground. Patient was unconscious for about 5 seconds before awakening. However, while pt was still lying on the floor, she became unresponsive, no convulsions, no seizure activity or tongue biting. CT head ordered and awaiting result. Patient does not have seizure history. Past History - Past Medical History Allergies/Adverse Reactions: Allergies Allergy/AdvReac Type Severity Reaction Status Date / Time aspirin Allergy Unknown Verified 01/04/17 09:11 Sulfa (Sulfonamide Allergy Unknown Verified 01/04/17 09:11 Antibiotics) Home Medications: Ambulatory Orders Calcium Carbonate/Vitamin D3 [Calcium 600-Vit D3 200 Tablet] 1 each PO BID 08/08 Cholecalciferol (Vitamin D3) [Vitamin D3 -] 2,000 unit PO DAILY 08/08/16 Docusate Sodium [Colace -] 100 mg PO BID 08/08/16 Fluoxetine HCl [Prozac] 40 mg PO DAILY 08/08/16 Levothyroxine [Synthroid -] 100 mcg PO DAILY 08/08/16 Multivitamin [Poly-Vitamin] 1 each PO DAILY 08/08/16 Risperidone 0.25 mg PO HS 01/04/17 Cardiac Disorders: Yes (VALVE DEFECT) Thyroid Disease: Yes (HYPO) - Immunization History Immunization Up to Date: Yes - Psycho/Social/Smoking Cessation Hx Anxiety: No Suicidal Ideation: No Smoking Status: No Smoking History: Never smoked Have you smoked in the past 12 months: No Number of Cigarettes Smoked Daily: 0 Hx Alcohol Use: No Drug/Substance Use Hx: No Substance Use Type: None Review of Systems - Review of Systems GENERAL/CONSTITUTIONAL: No fever or chills. No weakness. HEAD, EYES, EARS, NOSE AND THROAT: No change in vision. No ear pain or discharge. No sore throat. GASTROINTESTINAL: No nausea, vomiting, diarrhea or constipation. GENITOURINARY: No dysuria, frequency, or change in urination. CARDIOVASCULAR: No chest pain or shortness of breath. RESPIRATORY: No cough, wheezing, or hemoptysis. MUSCULOSKELETAL: No joint or muscle swelling or pain. No neck or back pain. SKIN: No rash NEUROLOGIC: +LOC. No headache, vertigo,or change in strength/sensation. ENDOCRINE: No increased thirst. No abnormal weight change. HEMATOLOGIC/LYMPHATIC: No anemia, easy bleeding, or history of blood clots. ALLERGIC/IMMUNOLOGIC: No hives or skin allergy. " *Physical Exam - Vital Signs Last Vital Signs Temp Pulse Resp BP Pulse Ox 98.0 F 70 20 95/51 98 01/04/17 09:11 01/04/17 09:11 01/04/17 09:11 01/04/17 09:11 01/04/17 09:11 "GENERAL: Awake, alert, and fully oriented, in no acute distress HEAD: No signs of trauma EYES: PERRLA, EOMI, sclera anicteric, conjunctiva clear ENT: Auricles normal inspection, hearing grossly normal, nares patent, oropharynx clear without exudates. Moist mucosa NECK: Normal ROM, supple, no lymphadenopathy, JVD, or masses LUNGS: Breath sounds equal, clear to auscultation bilaterally. No wheezes, and no crackles HEART: Regular rate and rhythm, normal S1 and S2, no murmurs, rubs or gallops ABDOMEN: Soft, nontender, normoactive bowel sounds. No guarding, no rebound. No masses EXTREMITIES: Normal range of motion, no edema. No clubbing or cyanosis. No cords, erythema, or tenderness NEUROLOGICAL: Cranial nerves II through XII grossly intact. Normal speech, normal gait SKIN: Warm, Dry, normal turgor, no rashes or lesions noted. CBCD WBC 10.5 K/mm3 (4.0-10.0) H D 01/04/17 09:49 RBC 4.25 M/mm3 (3.60-5.2) 01/04/17 09:49 Hgb 14.8 GM/dL (10.7-15.3) D 01/04/17 09:49 Hct 43.6 % (32.4-45.2) 01/04/17 09:49 MCV 102.5 fl (80-96) H 01/04/17 09:49 MCHC 33.9 g/dl (32.0-36.0) 01/04/17 09:49 RDW 14.2 % (11.6-15.6) 01/04/17 09:49 Plt Count 264 K/MM3 (134-434) D 01/04/17 09:49 MPV 9.0 fl (7.5-11.1) 01/04/17 09:49 CMP Sodium 139 mmol/L (136-145) 01/04/17 11:30 Potassium 4.0 mmol/L (3.5-5.1) 01/04/17 11:30 Chloride 100 mmol/L (98-107) 01/04/17 11:30 Carbon Dioxide 32 mmol/L (21-32) 01/04/17 11:30 Anion Gap 7 (8-16) L 01/04/17 11:30 BUN 18 mg/dL (7-18) D 01/04/17 11:30 Creatinine 0.8 mg/dL (0.55-1.02) D 01/04/17 11:30 Creat Clearance w eGFR > 60 (>60) 01/04/17 11:30 Calcium 8.6 mg/dL (8.5-10.1) 01/04/17 11:30 Total Bilirubin 0.6 mg/dL (0.2-1.0) D 01/04/17 11:30 AST 28 U/L (15-37) 01/04/17 11:30 ALT 26 U/L (12-78) 01/04/17 11:30 Alkaline Phosphatase 91 U/L (45-117) D 01/04/17 11:30 Total Protein 7.2 g/dl (6.4-8.2) 01/04/17 11:30 Albumin 3.4 g/dl (3.4-5.0) 01/04/17 11:30 Medical Decision Making 61 year old female, with a significant past medical history of Down's syndrome, Hypothyroidism, Osteoporosis, severe dementia from [facility] who presents to the emergency department after syncopizing in the bathroom. Patient presents with cushion former who states the patient was having breakfast and went to the bathroom. As per cushion former, patient was seen holding the wall and subsequently passed out. Stenotype Operator caught her and lowered her to the ground. Patient was unconscious for about 5 seconds before awakening. However, while pt was still lying on the floor, she became unresponsive, no convulsions, no seizure activity or tongue biting. CT head ordered and awaiting result. Patient does not have seizure history. Would not start epilepsy medication at this time. Cardiac workup, follow up cardiology consult/rec'd. Down Syndrome treatment is supportive, no specific medication. Patient on Respirdal. Would not start new medication for Dementia at this time. Psych consult for mood if needed. Can continue synthroid for hypothyroidism for now. Follow up CT head, if no acute changes, recommend cardiac syncope management. No further rec'd at this time.
[2017-01-04 18:40] VITALS: BMI 33.5
[2017-01-04] MEDS: DOCUSATE SODIUM 100 MG CAPSULE (FP) PO SCH (21:14)
[2017-01-04] MEDS: CALCIUM 500MG/VIT-D 200 UNITS COMBO TABLET (FP) PO SCH (21:14)
[2017-01-04] MEDS: CEFTRIAXONE 50 ML IVPB SCH (22:51)
[2017-01-05] MEDS: LEVOTHYROXINE NA 100 MCG TABLET (FP) PO SCH (06:18)
[2017-01-05 08:16] LABS: MCH 35.5 pg (25.7-33.7); MCHC 34.9 g/dl (32.0-36.0); MEAN CELL VOLUME 101.5 fl (80-96); MEAN PLT VOLUME 8.8 fl (7.5-11.1); PLATELET COUNT 282 K/MM3 (134-434); RDW 14.2 % (11.6-15.6); WHITE BLOOD COUNT 7.6 K/mm3 (4.0-10.0)
[2017-01-05 08:32] LABS: ANION GAP 7 (8-16); CALCIUM 8.5 mg/dL (8.5-10.1); CO2 31 mmol/L (21-32); GLUCOSE,RANDOM 96 mg/dL (74-106)
[2017-01-05 08:35] LABS: ALK PHOS 87 U/L (45-117); BILIRUBIN,TOTAL 0.5 mg/dL (0.2-1.0); CREATININE 0.7 mg/dL (0.55-1.02); SGOT/AST 21 U/L (15-37); SGPT/ALT 22 U/L (12-78); TOT PROT 6.7 g/dl (6.4-8.2)
[2017-01-05] MEDS: CEFTRIAXONE 50 ML IVPB SCH (09:13)
[2017-01-05] MEDS: DOCUSATE SODIUM 100 MG CAPSULE (FP) PO SCH ×2 (09:14→23:33)
[2017-01-05] MEDS: CHOLECALCIFEROL (VITAMIN D3) 1,000 UNIT TABLET (FP) PO SCH (09:14)
[2017-01-05] MEDS: CALCIUM 500MG/VIT-D 200 UNITS COMBO TABLET (FP) PO SCH ×2 (09:14→23:33)
[2017-01-05] MEDS: MULTIVITAMINS (DAILY MVI) TABLET (FP) PO SCH (09:14)
[2017-01-05] MEDS ORDERED: FLUoxetine HCL 20 MG CAPSULE (FP) PO SCH (10:00)
--- NOTE | 2017-01-05 12:58 | PN ---
Physical Exam: SUBJECTIVE: Patient seen and examined OBJECTIVE: Vital Signs Temperature 97.1 F L 01/05/17 09:00 Pulse Rate 97 H 01/05/17 09:00 Respiratory Rate 20 01/05/17 09:56 Blood Pressure 113/60 01/05/17 09:00 O2 Sat by Pulse Oximetry (%) 97 01/05/17 09:56 GENERAL: The patient has a down syndrome. HEAD: Normal with no signs of trauma. EYES: PERRL, extraocular movements intact, sclera anicteric, conjunctiva clear. ENT: Ears normal, nares patent, oropharynx clear without exudates, moist mucous membranes. NECK: Trachea midline, full range of motion, supple. LUNGS: Breath sounds equal, clear to auscultation bilaterally, no wheezes, no crackles, no accessory muscle use. HEART: Regular rate and rhythm, S1, S2 without murmur, rub or gallop. Abdomen: No rebound, no hepatosplenomegaly, no masses. EXTREMITIES: 2+ pulses, warm, well-perfused, no edema. NEUROLOGICAL: Cranial nerves II through XII grossly intact. Normal speech, gait not observed. SKIN: Warm, dry, normal turgor, no rashes or lesions noted CBCD WBC 7.6 K/mm3 (4.0-10.0) 01/05/17 06:05 RBC 3.89 M/mm3 (3.60-5.2) 01/05/17 06:05 Hgb 13.8 GM/dL (10.7-15.3) 01/05/17 06:05 Hct 39.5 % (32.4-45.2) 01/05/17 06:05 MCV 101.5 fl (80-96) H 01/05/17 06:05 MCHC 34.9 g/dl (32.0-36.0) 01/05/17 06:05 RDW 14.2 % (11.6-15.6) 01/05/17 06:05 Plt Count 282 K/MM3 (134-434) 01/05/17 06:05 MPV 8.8 fl (7.5-11.1) 01/05/17 06:05 CMP Sodium 139 mmol/L (136-145) 01/05/17 06:05 Potassium 4.2 mmol/L (3.5-5.1) 01/05/17 06:05 Chloride 101 mmol/L (98-107) 01/05/17 06:05 Carbon Dioxide 31 mmol/L (21-32) 01/05/17 06:05 Anion Gap 7 (8-16) L 01/05/17 06:05 BUN 15 mg/dL (7-18) 01/05/17 06:05 Creatinine 0.7 mg/dL (0.55-1.02) 01/05/17 06:05 Creat Clearance w eGFR > 60 (>60) 01/05/17 06:05 Random Glucose 96 mg/dL (74-106) 01/05/17 06:05 Calcium 8.5 mg/dL (8.5-10.1) 01/05/17 06:05 Total Bilirubin 0.5 mg/dL (0.2-1.0) 01/05/17 06:05 AST 21 U/L (15-37) D 01/05/17 06:05 ALT 22 U/L (12-78) 01/05/17 06:05 Alkaline Phosphatase 87 U/L (45-117) 01/05/17 06:05 Total Protein 6.7 g/dl (6.4-8.2) 01/05/17 06:05 Albumin 3.0 g/dl (3.4-5.0) L 01/05/17 06:05 CARDIAC ENZYMES Creatine Kinase 101 IU/L (26-192) 01/04/17 11:30 Troponin I < 0.02 ng/ml (0.00-0.05) 01/04/17 11:30 Active Medications Generic Name Dose Route Start Last Admin Trade Name Clarence PRN Reason Stop Dose Admin Calcium Carbonate/Cholecalciferol 1 tab 01/04/17 22:00 01/05/17 09:14 Os-Krishna 500+D - PO 1 tab BID BRITTNI Administration Cholecalciferol 2,000 unit 01/05/17 10:00 01/05/17 09:14 Vitamin D3 - PO 2,000 unit DAILY BRITTNI Administration Docusate Sodium 100 mg 01/04/17 22:00 01/05/17 09:14 Colace - PO 100 mg BID BRITTNI Administration Fluoxetine HCl 40 mg 01/05/17 10:00 01/05/17 09:14 Prozac - PO 40 mg DAILY BRITTNI Administration Ceftriaxone Sodium 50 mls @ 100 mls/hr 01/04/17 22:30 01/05/17 09:13 Rocephin 1gm Ivpb (Pre-Docked) IVPB 100 mls/hr DAILY BRITTNI Administration Levothyroxine Sodium 100 mcg 01/05/17 07:00 01/05/17 06:18 Synthroid - PO 100 mcg DAILY@0700 BRITTNI Administration Multivitamins/Minerals/Vitamin C 1 tab 01/05/17 10:00 01/05/17 09:14 Tab-A-Vit - PO 1 tab DAILY BRITTNI Administration Home Medications Medication Instructions Recorded Calcium Carbonate/Vitamin D3 1 each PO BID 08/08/16 [Calcium 600-Vit D3 200 Tablet] Cholecalciferol (Vitamin D3) 2,000 unit PO DAILY 08/08/16 [Vitamin D3 -] Docusate Sodium [Colace -] 100 mg PO BID 08/08/16 Fluoxetine HCl [Prozac] 40 mg PO DAILY 08/08/16 Levothyroxine [Synthroid -] 100 mcg PO DAILY 08/08/16 Multivitamin [Poly-Vitamin] 1 each PO DAILY 08/08/16 Risperidone 0.25 mg PO HS 01/04/17 ASSESSMENT/PLAN: 61 yo F with significant pmhx of Down syndrome, hypothyroidism, depression and dementia placed of observation for possible syncope vs. seizure. # Acute Syncope vs seizure activity , patient never had a seizure activity before, as per Aid who is taking care the patient, started to have issues after starting on Risperadone, as per Psychiatrist to discontinue Risperadone, start the patient on Depakote as per Pshcy/recommendations Echo pending.,Neuro consult and Cardio consult sppreciated. # Hx of Depression/ Insomia patient was placed on Risperadone as per aid. # Hx of Down syndrome # Hx of Hypothyroidism continue meds. DVT Px: Lovenox 40mg sq Visit type - Emergency Visit Emergency Visit: Yes ED Registration Date: 01/04/17 Care time: The patient presented to the Emergency Department on the above date and was hospitalized for further evaluation of their emergent condition. - New Patient This patient is new to me today: No - Critical Care Critical Care patient: No
--- NOTE | 2017-01-05 13:42 | PN ---
Progress Note, Physician Chief Complaint: Patient sitting comfortable at the time exam. She denies palpitation, dizziness , recurrent syncope, near syncope, chest pain or SOB. Tele shows sinus rhythm with episodes of mild sinus tachycardia. History of Present Illness: 61 yo F with significant PMHx of Down syndrome, hypothyroidism, depression and dementia admitted 01/04/2017 from [facility] with witnessed fall. As per the aide, the patient was going to use bathroom when aide noticed she was falling. Aide caught the patient and noticed patient had blank stare on her face. +incontinence. ?confusion after she came to. No chest pain, palpitations. No sob. Recently started on respiradone. - Current Medication List Current Medications: Active Medications Calcium Carbonate/Cholecalciferol (Os-Krishna 500+D -) 1 tab PO BID [facility] Last Admin: 01/05/17 09:14 Dose: 1 tab Cholecalciferol (Vitamin D3 -) 2,000 unit PO DAILY [facility] Last Admin: 01/05/17 09:14 Dose: 2,000 unit Docusate Sodium (Colace -) 100 mg PO BID [facility] Last Admin: 01/05/17 09:14 Dose: 100 mg Fluoxetine HCl (Prozac -) 40 mg PO DAILY [facility] Last Admin: 01/05/17 09:14 Dose: 40 mg Ceftriaxone Sodium (Rocephin 1gm Ivpb (Pre-Docked)) 50 mls @ 100 mls/hr IVPB DAILY [facility] Last Admin: 01/05/17 09:13 Dose: 100 mls/hr Levothyroxine Sodium (Synthroid -) 100 mcg PO DAILY@0700 [facility] Last Admin: 01/05/17 06:18 Dose: 100 mcg Multivitamins/Minerals/Vitamin C (Tab-A-Vit -) 1 tab PO DAILY [facility] Last Admin: 01/05/17 09:14 Dose: 1 tab - Objective Vital Signs: Vital Signs Temperature 97.1 F L 01/05/17 09:00 Pulse Rate 97 H 01/05/17 09:00 Respiratory Rate 20 01/05/17 09:56 Blood Pressure 113/60 01/05/17 09:00 O2 Sat by Pulse Oximetry (%) 97 01/05/17 09:56 Constitutional: Yes: Well Nourished, No Distress, Calm Eyes: Yes: Conjunctiva Clear, EOM Intact HENT: Yes: Atraumatic, Normocephalic Neck: Yes: Supple, Trachea Midline Cardiovascular: Yes: Regular Rate and Rhythm, Tachycardia Respiratory: Yes: Regular, CTA Bilaterally Gastrointestinal: Yes: WNL, Normal Bowel Sounds, Soft ...Rectal Exam: Yes: Deferred Extremities: Yes: WNL Edema: No Peripheral Pulses WNL: Yes Labs: CBC, BMP 01/05/17 06:05 01/05/17 06:05 Assessment/Plan 61 year-old woman with significant PMHx of Down syndrome, hypothyroidism, depression and dementia presents [facility] who presents to ER s/p witnessed fall today. As per the aide,the patient was going to use bathroom when aide noticed she was falling. Aide caught the patient and noticed patient had blank stare on her face. +incontinence. ?confusion after she came to. No chest pain, palpitations. No sob. Recently started on respiradone 1) Syncope -unclear etiology, possible vasovagal or orthostatic hypotension. Echocardiogram unremarkable Carotid imaging in July 2016 unremarkable Admitted for similar episode in July 2016 with unremarkable cardiac work up. Reports had a holter monitor with Dr. Ferguson as an outpatient. CE's negative. Tele shows mild sinus tachycardia. -Start low dose beta-og: Metoprolol succinate 25 mg daily (ordered). -Continue tele. -Check orthostasis if possible. -Oral Hydration -Neurology evaluation appreciated.
--- NOTE | 2017-01-05 15:24 | CON.PSY ---
Psychiatry Consult Chief Complaint: Patient had seizures, had been on Risperidal. - Previous Psychiatric Treatment Outpatient: Less than 6 mos ago Inpatient: None - Reason for Previous Treatment Reason for Previous Treatment: Mental Retardation - Current Medications Current Medications: Active Medications Calcium Carbonate/Cholecalciferol (Os-Krishna 500+D -) 1 tab PO BID [facility] Last Admin: 01/05/17 09:14 Dose: 1 tab Cholecalciferol (Vitamin D3 -) 2,000 unit PO DAILY [facility] Last Admin: 01/05/17 09:14 Dose: 2,000 unit Divalproex Sodium (Depakote Sprinkle Caps -) 125 mg PO BID [facility] Docusate Sodium (Colace -) 100 mg PO BID [facility] Last Admin: 01/05/17 09:14 Dose: 100 mg Ceftriaxone Sodium (Rocephin 1gm Ivpb (Pre-Docked)) 50 mls @ 100 mls/hr IVPB DAILY [facility] Last Admin: 01/05/17 09:13 Dose: 100 mls/hr Levothyroxine Sodium (Synthroid -) 100 mcg PO DAILY@0700 [facility] Last Admin: 01/05/17 06:18 Dose: 100 mcg Metoprolol Succinate (Toprol Xl -) 25 mg PO DAILY [facility] Multivitamins/Minerals/Vitamin C (Tab-A-Vit -) 1 tab PO DAILY [facility] Last Admin: 01/05/17 09:14 Dose: 1 tab - Allergies Allergies: Allergies Allergy/AdvReac Type Severity Reaction Status Date / Time aspirin Allergy Unknown Verified 01/04/17 09:11 Sulfa (Sulfonamide Allergy Unknown Verified 01/04/17 09:11 Antibiotics) - Current Living Status Usual Living Arrangement: Assisted Living - Current Mental Status Evaluation Appearance: Well Groomed Attitude: Cooperative - Affect Affect: Constrictive Appropriateness: Not Appropriate - Mood Mood: Irritable - Speech/Language Expressive: Delayed - Psychomotor Activity Psychomotor Activity: Slowed - Thought Process Thought Process: Circumstantial - Thought Content Hallucinations: Absent Delusions: Absent - Self Perception Self Perception: Depersonalization - Cognition Attention: Diminished Memory, Short Term: 0/3 Memory, Remote with Promptin/3 - Concentration Serial Sevens Intact: No Simple Calculations Intact: No - Abstraction Proverb Interpretation: Impaired Judgement: Minimally Impaired - Insight Insight: Impaired - Impulse Control Impulse Control: Good Control - Suicidal Ideation Suicidal Ideation: No - Homicidal Ideation Homicidal Ideation: No Assessment/Plan !) d/C Prozac 2) Start Depakote for impulse control disorder. 3) [facility]chr[facility] back to [facility] when medically clear.
--- NOTE | 2017-01-05 18:42 | EKG ---
Test Reason : Blood Pressure : / mmHG Vent. Rate : 064 BPM Atrial Rate : 064 BPM P-R Int : 136 ms QRS Dur : 068 ms QT Int : 428 ms P-R-T Axes : 047 030 023 degrees QTc Int : 441 ms NORMAL SINUS RHYTHM POSSIBLE LEFT ATRIAL ENLARGEMENT BORDERLINE ECG WHEN COMPARED WITH ECG OF 08-AUG-2016 08:57, NO SIGNIFICANT CHANGE WAS FOUND Confirmed by KASIA SARMIENTO MD ([id number]) on 01/05/2017 6:41:59 PM Referred By: Confirmed By:KASIA SARMIENTO MD
[2017-01-05] MEDS: DIVALPROEX SODIUM 125 MG SPRINKLE CAPS (FP) PO SCH (23:32)
[2017-01-06] MEDS: LEVOTHYROXINE NA 100 MCG TABLET (FP) PO SCH (06:35)
[2017-01-06] MEDS ORDERED: METOPROLOL SUCCINATE 25 MG TAB.SR.24H (FP) PO SCH (10:00)
[2017-01-06] MEDS ORDERED: PT OWN MED DRAWER 7, Y5N ONE ×3 (10:13→15:41)
[2017-01-06] MEDS: CHOLECALCIFEROL (VITAMIN D3) 1,000 UNIT TABLET (FP) PO SCH (10:18)
[2017-01-06] MEDS: CALCIUM 500MG/VIT-D 200 UNITS COMBO TABLET (FP) PO SCH ×2 (10:18→22:00)
[2017-01-06] MEDS: DIVALPROEX SODIUM 125 MG SPRINKLE CAPS (FP) PO SCH (10:18)
[2017-01-06] MEDS: MULTIVITAMINS (DAILY MVI) TABLET (FP) PO SCH (10:18)
[2017-01-06] MEDS: DOCUSATE SODIUM 100 MG CAPSULE (FP) PO SCH ×2 (10:18→22:00)
[2017-01-06] MEDS: CEFTRIAXONE 50 ML IVPB SCH ×2 (10:19→10:21)
--- NOTE | 2017-01-06 10:50 | PN ---
Progress Note, Physician Chief Complaint: Patient sitting comfortable at the time exam. She denies palpitation, dizziness , recurrent syncope, near syncope, chest pain or SOB. Tele shows sinus rhythm with episodes of mild bradycardia (47-50 BPM) this morning. - Current Medication List Current Medications: Active Medications Calcium Carbonate/Cholecalciferol (Os-Krishna 500+D -) 1 tab PO BID [facility] Last Admin: 01/06/17 10:18 Dose: 1 tab Cholecalciferol (Vitamin D3 -) 2,000 unit PO DAILY [facility] Last Admin: 01/06/17 10:18 Dose: 2,000 unit Divalproex Sodium (Depakote Sprinkle Caps -) 125 mg PO BID [facility] Last Admin: 01/06/17 10:18 Dose: 125 mg Docusate Sodium (Colace -) 100 mg PO BID [facility] Last Admin: 01/06/17 10:18 Dose: 100 mg Levothyroxine Sodium (Synthroid -) 100 mcg PO DAILY@0700 [facility] Last Admin: 01/06/17 06:35 Dose: 100 mcg Metoprolol Succinate (Toprol Xl -) 25 mg PO DAILY [facility] Last Admin: 01/06/17 10:19 Dose: 25 mg Multivitamins/Minerals/Vitamin C (Tab-A-Vit -) 1 tab PO DAILY [facility] Last Admin: 01/06/17 10:18 Dose: 1 tab - Objective Vital Signs: Vital Signs Temperature 98 F 01/06/17 05:00 Pulse Rate 57 L 01/06/17 05:00 Respiratory Rate 20 01/06/17 05:00 Blood Pressure 115/62 01/06/17 05:00 O2 Sat by Pulse Oximetry (%) 97 01/06/17 02:00 Constitutional: Yes: Well Nourished, No Distress Eyes: Yes: Conjunctiva Clear, EOM Intact HENT: Yes: Atraumatic, Normocephalic Neck: Yes: Supple, Trachea Midline Cardiovascular: Yes: Regular Rate and Rhythm, Bradycardia Respiratory: Yes: Regular, CTA Bilaterally Gastrointestinal: Yes: Normal Bowel Sounds, Soft ...Rectal Exam: Yes: Deferred Musculoskeletal: Yes: WNL Edema: No Peripheral Pulses WNL: Yes Labs: CBC, BMP 01/05/17 06:05 01/05/17 06:05 Assessment/Plan 61 year-old woman with significant PMHx of Down syndrome, hypothyroidism, depression and dementia presents [facility] home who presents to ER s/p witnessed fall today. As per the aide,the patient was going to use bathroom when aide noticed she was falling. Aide caught the patient and noticed patient had blank stare on her face. +incontinence. ?confusion after she came to. No chest pain, palpitations. No sob. Recently started on respiradone 1) Syncope -unclear etiology, possible vasovagal or orthostatic hypotension. Echocardiogram unremarkable Carotid imaging in July 2016 unremarkable Admitted for similar episode in July 2016 with unremarkable cardiac work up. Reports had a holter monitor with Dr. Ferguson as an outpatient. CE's negative. Tele shows mild sinus tachycardia. Sinus bradycardia noted after starting Metoprolol succinate 25 mg daily. Will discontinue Metoprolol succinate. -Continue tele. -Check orthostasis if possible. -Oral Hydration -Neurology and psych evaluation appreciated.
--- NOTE | 2017-01-06 11:31 | PN ---
Teaching Attending Note Name of Resident: Katharina Ashraf ATTENDING PHYSICIAN STATEMENT I saw and evaluated the patient. I reviewed the resident's note and discussed the case with the resident. I agree with the resident's findings and plan as documented. SUBJECTIVE: Patient is feeling better, as per Aid , patient was unsteady on her feet but not at this moment. We walked the patient , was no longer unsteady on her feet. OBJECTIVE: Vital Signs Temperature 98.2 F 01/06/17 09:00 Pulse Rate 54 L 01/06/17 09:00 Respiratory Rate 18 01/06/17 09:00 Blood Pressure 104/52 01/06/17 09:00 O2 Sat by Pulse Oximetry (%) 95 01/06/17 10:00 CBCD WBC 7.6 K/mm3 (4.0-10.0) 01/05/17 06:05 RBC 3.89 M/mm3 (3.60-5.2) 01/05/17 06:05 Hgb 13.8 GM/dL (10.7-15.3) 01/05/17 06:05 Hct 39.5 % (32.4-45.2) 01/05/17 06:05 MCV 101.5 fl (80-96) H 01/05/17 06:05 MCHC 34.9 g/dl (32.0-36.0) 01/05/17 06:05 RDW 14.2 % (11.6-15.6) 01/05/17 06:05 Plt Count 282 K/MM3 (134-434) 01/05/17 06:05 MPV 8.8 fl (7.5-11.1) 01/05/17 06:05 CMP Sodium 139 mmol/L (136-145) 01/05/17 06:05 Potassium 4.2 mmol/L (3.5-5.1) 01/05/17 06:05 Chloride 101 mmol/L (98-107) 01/05/17 06:05 Carbon Dioxide 31 mmol/L (21-32) 01/05/17 06:05 Anion Gap 7 (8-16) L 01/05/17 06:05 BUN 15 mg/dL (7-18) 01/05/17 06:05 Creatinine 0.7 mg/dL (0.55-1.02) 01/05/17 06:05 Creat Clearance w eGFR > 60 (>60) 01/05/17 06:05 Random Glucose 96 mg/dL (74-106) 01/05/17 06:05 Calcium 8.5 mg/dL (8.5-10.1) 01/05/17 06:05 Total Bilirubin 0.5 mg/dL (0.2-1.0) 01/05/17 06:05 AST 21 U/L (15-37) D 01/05/17 06:05 ALT 22 U/L (12-78) 01/05/17 06:05 Alkaline Phosphatase 87 U/L (45-117) 01/05/17 06:05 Total Protein 6.7 g/dl (6.4-8.2) 01/05/17 06:05 Albumin 3.0 g/dl (3.4-5.0) L 01/05/17 06:05 CARDIAC ENZYMES Creatine Kinase 101 IU/L (26-192) 01/04/17 11:30 Troponin I < 0.02 ng/ml (0.00-0.05) 01/04/17 11:30 Current Medications Generic Name Dose Route Start Last Admin Trade Name Kanuq PRN Reason Stop Dose Admin Calcium Carbonate/Cholecalciferol 1 tab 01/04/17 22:00 01/06/17 10:18 Os-Krishna 500+D - PO 1 tab BID BRITTNI Administration Cholecalciferol 2,000 unit 01/05/17 10:00 01/06/17 10:18 Vitamin D3 - PO 2,000 unit DAILY BRITTNI Administration Divalproex Sodium 125 mg 01/07/17 22:00 Depakote Sprinkle Caps - PO HS BRITTNI Docusate Sodium 100 mg 01/04/17 22:00 01/06/17 10:18 Colace - PO 100 mg BID BRITTNI Administration Fluoxetine HCl 20 mg 01/06/17 11:25 Prozac - PO DAILY BRITTNI Levothyroxine Sodium 100 mcg 01/05/17 07:00 01/06/17 06:35 Synthroid - PO 100 mcg DAILY@0700 BRITTNI Administration Multivitamins/Minerals/Vitamin C 1 tab 01/05/17 10:00 01/06/17 10:18 Tab-A-Vit - PO 1 tab DAILY BRITTNI Administration Home Medications Medication Instructions Recorded Calcium Carbonate/Vitamin D3 1 each PO BID 08/08/16 [Calcium 600-Vit D3 200 Tablet] Cholecalciferol (Vitamin D3) 2,000 unit PO DAILY 08/08/16 [Vitamin D3 -] Docusate Sodium [Colace -] 100 mg PO BID 08/08/16 Levothyroxine [Synthroid -] 100 mcg PO DAILY 08/08/16 Multivitamin [Poly-Vitamin] 1 each PO DAILY 08/08/16 Divalproex Sprinkle [Depakote 125 mg PO HS #30 cap.sprink 01/06/17 Sprinkle -] Fluoxetine HCl [Prozac -] 20 mg PO DAILY #7 tab 01/06/17 Metoprolol Succinate [Toprol XL -] 25 mg PO DAILY #30 tab 01/06/17 PE: steady on her feet now. rest of physical exam by the resident's note ASSESSMENT AND PLAN: 61 yo F with significant pmhx of Down syndrome, hypothyroidism, depression and dementia placed of observation for possible syncope vs. seizure. # Acute Syncope vs seizure activity , patient never had a seizure activity before, as per Aid who is taking care the patient, started to have issues after starting on Risperadone, as per Psychiatrist to discontinue Risperadone, start the patient on Depakote as per Pshcy/recommendations. Will reduce the dose of Depakote to 125mg po qhs dosing, discussed with agrees with the plan , also will reduce the dose of Prozac to 20mg po daily x 7 days then 10mg x 7 days can follow up with her psychiatrist for further management of her care. [facility] report reviewed. Echo and head ct was done , report reviewed. # Hx of Depression/ Insomia patient , will discontinue Risperadone since can cause seizure activity , instead added depkote 125mg sprinkle qhs once per day as per Pcych. Also will taper prozac to 20mg po daily x 7 days then 10mg x 7 days then discontinue # Hx of Down syndrome # Hx of Hypothyroidism continue meds. can be discharged back to the center.
--- NOTE | 2017-01-06 11:47 | DS ---
Physical Exam: SUBJECTIVE: Patient seen and examined this AM with aid at bedside. She has no acute complaints. No staring spell episodes overnight. OBJECTIVE: Vital Signs Period Temp Pulse Resp BP Sys/Enamorado Pulse Ox Last 24 Hr 97.6 F-98.2 F 16-63 18-67 103-115/52-63 95-97 PHYSICAL EXAM GEN: AAOx3, NAD HNT: Pupillary exam not tolerated, EOMi, No cervical LAD CV: S1, S2, RRR, no MRG LUNG: CTABL, no wheezes ABD: Soft, NT, ND MSK: No edema, no erythema Neuro: Cranial Nerves 2-12 grossly intact No sensation deficits MSK 5/5 in all extremities Reflexes 2+ in all extremities LABS Laboratory Last Values WBC 7.6 K/mm3 (4.0-10.0) 01/05/17 06:05 RBC 3.89 M/mm3 (3.60-5.2) 01/05/17 06:05 Hgb 13.8 GM/dL (10.7-15.3) 01/05/17 06:05 Hct 39.5 % (32.4-45.2) 01/05/17 06:05 MCV 101.5 fl (80-96) H 01/05/17 06:05 MCH 35.5 pg (25.7-33.7) H 01/05/17 06:05 MCHC 34.9 g/dl (32.0-36.0) 01/05/17 06:05 RDW 14.2 % (11.6-15.6) 01/05/17 06:05 Plt Count 282 K/MM3 (134-434) 01/05/17 06:05 MPV 8.8 fl (7.5-11.1) 01/05/17 06:05 Neutrophils % 83.4 % (42.8-82.8) H D 01/04/17 09:49 Lymphocytes % 8.9 % (8-40) D 01/04/17 09:49 Monocytes % 7.0 % (3.8-10.2) 01/04/17 09:49 Eosinophils % 0.1 % (0-4.5) 01/04/17 09:49 Basophils % 0.6 % (0-2.0) 01/04/17 09:49 Sodium 139 mmol/L (136-145) 01/05/17 06:05 Potassium 4.2 mmol/L (3.5-5.1) 01/05/17 06:05 Chloride 101 mmol/L (98-107) 01/05/17 06:05 Carbon Dioxide 31 mmol/L (21-32) 01/05/17 06:05 Anion Gap 7 (8-16) L 01/05/17 06:05 BUN 15 mg/dL (7-18) 01/05/17 06:05 Creatinine 0.7 mg/dL (0.55-1.02) 01/05/17 06:05 Creat Clearance w eGFR > 60 (>60) 01/05/17 06:05 Random Glucose 96 mg/dL (74-106) 01/05/17 06:05 Calcium 8.5 mg/dL (8.5-10.1) 01/05/17 06:05 Total Bilirubin 0.5 mg/dL (0.2-1.0) 01/05/17 06:05 AST 21 U/L (15-37) D 01/05/17 06:05 ALT 22 U/L (12-78) 01/05/17 06:05 Alkaline Phosphatase 87 U/L (45-117) 01/05/17 06:05 Creatine Kinase 101 IU/L (26-192) 01/04/17 11:30 Troponin I < 0.02 ng/ml (0.00-0.05) 01/04/17 11:30 B-Natriuretic Peptide 53.79 pg/ml (5-125) 01/04/17 11:30 Total Protein 6.7 g/dl (6.4-8.2) 01/05/17 06:05 Albumin 3.0 g/dl (3.4-5.0) L 01/05/17 06:05 TSH 2.52 uIU/ml (0.358-3.74) D 01/04/17 11:30 Free T4 1.47 ng/dl (0.76-1.46) H 01/04/17 11:30 Free T3 2.2 pg/ml (2.0-4.4) 01/04/17 15:05 Urine Color Yellow 01/04/17 10:04 Urine Appearance Slcloudy 01/04/17 10:04 Urine pH 6.0 (5.0-8.0) D 01/04/17 10:04 Ur Specific [place] 1.015 (1.005-1.025) 01/04/17 10:04 Urine Protein Negative (NEGATIVE) 01/04/17 10:04 Urine Glucose (UA) Negative (NEGATIVE) 01/04/17 10:04 Urine Ketones Negative (NEGATIVE) 01/04/17 10:04 Urine Blood Negative (NEGATIVE) 01/04/17 10:04 Urine Nitrite Negative (NEGATIVE) 01/04/17 10:04 Urine Bilirubin Negative (NEGATIVE) 01/04/17 10:04 Urine Urobilinogen Negative mg/dL (0.2-1.0) 01/04/17 10:04 Ur Leukocyte Esterase 2+ (NEGATIVE) H 01/04/17 10:04 Urine RBC 1 /hpf (0-3) 01/04/17 10:04 Urine WBC 13 /hpf (3-5) 01/04/17 10:04 Ur Epithelial Cells Rare /hpf (FEW) 01/04/17 10:04 Hyaline Casts 3 /lpf 01/04/17 10:04 Urine Mucus Rare 01/04/17 10:04 HOSPITAL COURSE: Date of Admission:01/04/17 Date of Discharge: 01/06/17 Ms. Jessica is a 61yo F with a hx of Down Syndrome who presents with staring spells with subsequent loss of muscle tone and urinary incontinence and an episode of unresponsiveness. # Likely Atonic Seizure - The patient presented with likely an atonic seizure with loss of muscle tone and urinary incontinence. She has no seizure history and was on no medications. Noncontrast head CT was negative. She had no further seizures in the hospital. She was seen by the neurologist here, who does not recommend starting her on antiepileptic medications at this time. We discontinued Risperdal since it can lower the seizure threshold. # Syncope - The patient was seen by Cardiology in the hospital. EKG was within normal limits, and Echocardiogram showed no prominent valvular dysfunction with normal LV systolic function and ejection fraction. As per Cardiology, she was placed on metoprolol for tachycardia. The patient subsequently developed sinus bradycardia, so as per Cardiology after further eval the patient does not need the medication at discharge. # History of Mood Disorder - Psychiatry saw the patient in the hospital and recommended gradual tapering off of Prozac. The patietn will be discharged on 20mg at night for 7 days and 10mg for another 7 days. The patient's Risperdal was discontinued. As per Psychiatry, the patient was started Depakote sprinkles 125mg HS. The patient will followup with her psychiatrist at [facility]. # Macrocytosis - No anemia appreciated. We recommend that her physician at [facility] check a B12 and folate level on the patient. For all other chronic medical problems, we continued the patients home medications. The patient's aid is aware of the hospital course and agrees with the plan. A call was placed to the nursing supervisor drying at [facility] who also agrees with the plan. Minutes to complete discharge: 55 Discharge Summary Reason For Visit: SYNCOPE Current Active Problems Syncope (Acute) UTI (urinary tract infection) (Acute) Condition: Stable - Instructions Diet, Activity, Other Instructions: - Please continue to watch for fainting or staring spells - Please note the medication changes we made below - Continue to monitor your blood pressure regularly MEDICATION CHANGES: - We discontinued your Risperdal - We added Depakote Sprinkles 125mg at night - We decreased your Prozac to 20mg QD x 1 week, then take half tablet for the next week FOLLOWUP: - Please followup with your doctors at [facility]. - Please have them check a B12 and folate level on you - Please followup with a neurologist at [facility] Referrals: Sanjana Baez MD [Staff Physician] - Bebeto Kendrick MD [Staff Physician] - Eder Ceja MD [Staff Physician] - [facility]position: [facility] - Home Medications Comprehensive Discharge Medication List: Ambulatory Orders Calcium Carbonate/Vitamin D3 [Calcium 600-Vit D3 200 Tablet] 1 each PO BID 08/08 Cholecalciferol (Vitamin D3) [Vitamin D3 -] 2,000 unit PO DAILY 08/08/16 Docusate Sodium [Colace -] 100 mg PO BID 08/08/16 Levothyroxine [Synthroid -] 100 mcg PO DAILY 08/08/16 Multivitamin [Poly-Vitamin] 1 each PO DAILY 08/08/16 Divalproex Sprinkle [Depakote Sprinkle -] 125 mg PO HS #30 cap.sprink 01/06/17 Fluoxetine HCl [Prozac -] 20 mg PO DAILY #11 tab 08/20/17
--- NOTE | 2017-01-06 12:46 | PN ---
Physical Exam: SUBJECTIVE: Patient seen and examined this AM. No complants. Aid states that patient is feeling much better. OBJECTIVE: Vital Signs Period Temp Pulse Resp BP Sys/Enamorado Pulse Ox Last 24 Hr 97.6 F-98.2 F 16-63 18-67 103-115/52-63 95-97 GEN: AAOx3, NAD HNT: Pupillary exam not tolerated, EOMi, No cervical LAD CV: S1, S2, RRR, no MRG LUNG: CTABL, no wheezes ABD: Soft, NT, ND MSK: No edema, no erythema Neuro: Cranial Nerves 2-12 grossly intact No sensation deficits MSK 5/5 in all extremities Reflexes 2+ in all extremities Laboratory Last Values WBC 7.6 K/mm3 (4.0-10.0) 01/05/17 06:05 RBC 3.89 M/mm3 (3.60-5.2) 01/05/17 06:05 Hgb 13.8 GM/dL (10.7-15.3) 01/05/17 06:05 Hct 39.5 % (32.4-45.2) 01/05/17 06:05 MCV 101.5 fl (80-96) H 01/05/17 06:05 MCH 35.5 pg (25.7-33.7) H 01/05/17 06:05 MCHC 34.9 g/dl (32.0-36.0) 01/05/17 06:05 RDW 14.2 % (11.6-15.6) 01/05/17 06:05 Plt Count 282 K/MM3 (134-434) 01/05/17 06:05 MPV 8.8 fl (7.5-11.1) 01/05/17 06:05 Neutrophils % 83.4 % (42.8-82.8) H D 01/04/17 09:49 Lymphocytes % 8.9 % (8-40) D 01/04/17 09:49 Monocytes % 7.0 % (3.8-10.2) 01/04/17 09:49 Eosinophils % 0.1 % (0-4.5) 01/04/17 09:49 Basophils % 0.6 % (0-2.0) 01/04/17 09:49 Sodium 139 mmol/L (136-145) 01/05/17 06:05 Potassium 4.2 mmol/L (3.5-5.1) 01/05/17 06:05 Chloride 101 mmol/L (98-107) 01/05/17 06:05 Carbon Dioxide 31 mmol/L (21-32) 01/05/17 06:05 Anion Gap 7 (8-16) L 01/05/17 06:05 BUN 15 mg/dL (7-18) 01/05/17 06:05 Creatinine 0.7 mg/dL (0.55-1.02) 01/05/17 06:05 Creat Clearance w eGFR > 60 (>60) 01/05/17 06:05 Random Glucose 96 mg/dL (74-106) 01/05/17 06:05 Calcium 8.5 mg/dL (8.5-10.1) 01/05/17 06:05 Total Bilirubin 0.5 mg/dL (0.2-1.0) 01/05/17 06:05 AST 21 U/L (15-37) D 01/05/17 06:05 ALT 22 U/L (12-78) 01/05/17 06:05 Alkaline Phosphatase 87 U/L (45-117) 01/05/17 06:05 Creatine Kinase 101 IU/L (26-192) 01/04/17 11:30 Troponin I < 0.02 ng/ml (0.00-0.05) 01/04/17 11:30 B-Natriuretic Peptide 53.79 pg/ml (5-125) 01/04/17 11:30 Total Protein 6.7 g/dl (6.4-8.2) 01/05/17 06:05 Albumin 3.0 g/dl (3.4-5.0) L 01/05/17 06:05 TSH 2.52 uIU/ml (0.358-3.74) D 01/04/17 11:30 Free T4 1.47 ng/dl (0.76-1.46) H 01/04/17 11:30 Free T3 2.2 pg/ml (2.0-4.4) 01/04/17 15:05 Urine Color Yellow 01/04/17 10:04 Urine Appearance Slcloudy 01/04/17 10:04 Urine pH 6.0 (5.0-8.0) D 01/04/17 10:04 Ur Specific [place] 1.015 (1.005-1.025) 01/04/17 10:04 Urine Protein Negative (NEGATIVE) 01/04/17 10:04 Urine Glucose (UA) Negative (NEGATIVE) 01/04/17 10:04 Urine Ketones Negative (NEGATIVE) 01/04/17 10:04 Urine Blood Negative (NEGATIVE) 01/04/17 10:04 Urine Nitrite Negative (NEGATIVE) 01/04/17 10:04 Urine Bilirubin Negative (NEGATIVE) 01/04/17 10:04 Urine Urobilinogen Negative mg/dL (0.2-1.0) 01/04/17 10:04 Ur Leukocyte Esterase 2+ (NEGATIVE) H 01/04/17 10:04 Urine RBC 1 /hpf (0-3) 01/04/17 10:04 Urine WBC 13 /hpf (3-5) 01/04/17 10:04 Ur Epithelial Cells Rare /hpf (FEW) 01/04/17 10:04 Hyaline Casts 3 /lpf 01/04/17 10:04 Urine Mucus Rare 01/04/17 10:04 Active Medications Generic Name Dose Route Start Last Admin Trade Name Kanuq PRN Reason Stop Dose Admin Calcium Carbonate/Cholecalciferol 1 tab 01/04/17 22:00 01/06/17 10:18 Os-Krishna 500+D - PO 1 tab BID BRITTNI Administration Cholecalciferol 2,000 unit 01/05/17 10:00 01/06/17 10:18 Vitamin D3 - PO 2,000 unit DAILY BRITTNI Administration Divalproex Sodium 125 mg 01/07/17 22:00 Depakote Sprinkle Caps - PO HS BRITTNI Docusate Sodium 100 mg 01/04/17 22:00 01/06/17 10:18 Colace - PO 100 mg BID BRITTNI Administration Fluoxetine HCl 20 mg 01/06/17 11:25 Prozac - PO DAILY BRITTNI Levothyroxine Sodium 100 mcg 01/05/17 07:00 01/06/17 06:35 Synthroid - PO 100 mcg DAILY@0700 BRITTNI Administration Multivitamins/Minerals/Vitamin C 1 tab 01/05/17 10:00 01/06/17 10:18 Tab-A-Vit - PO 1 tab DAILY BRITTNI Administration ASSESSMENT/PLAN: Pt is a 61yo F with a hx of Down Syndrome who presents with staring spells with subsequent loss of muscle tone, likely an Atonic Seizure. Patient presented with similar complaints in July 2016, had negative echo and head CT. # Likely Atonic Seizure - As per Psych - decreased Prozac to 20mg - Discontinued Risperdal - TSH WNL, Head CT WNL - As per Neurology, no need to start antiepileptic meds # Syncope - Echo WNL - Started on Metoprolol as per Cardio, pt later developed shar + pauses 2-3sec - D/c'd metoprolol - Observe for one more day off Metoprolol on tele as per Cardio # Pyuria - UCx negative - Discontinued IV Ceftriaxone # Hx of Hypothyroidism - Continue Synthroid # Hx of MDD - Decreased Prozac to 20mg - Decreased Depakote to 125mg QHS # Hx of Osteoporosis - Continue Calcium and Vitamin D # FEN - Fluids: None - Electrolytes: Monitor - Nutrition: Regular Diet # Prophylaxis - DVT: SCDs - GI: Not needed - Deconditioning: Will order PT for tmrw # Dispo - Admit to tele - Monitor for seizures Dr. Katharina Ashraf, PGY-1 Internal Medicine Visit type - Emergency Visit Emergency Visit: No - New Patient This patient is new to me today: No - Critical Care Critical Care patient: No
[2017-01-06] MEDS: FLUoxetine HCL 20 MG CAPSULE (FP) PO SCH (15:36)
[2017-01-07] MEDS: LEVOTHYROXINE NA 100 MCG TABLET (FP) PO SCH (06:12)
[2017-01-07] MEDS ORDERED: SODIUM CHLORIDE 0.9% 500 ML INFUS.BAG IV ONE (07:36)
[2017-01-07] MEDS: CALCIUM 500MG/VIT-D 200 UNITS COMBO TABLET (FP) PO SCH ×2 (09:22→22:13)
[2017-01-07] MEDS: DOCUSATE SODIUM 100 MG CAPSULE (FP) PO SCH ×2 (09:22→22:13)
[2017-01-07] MEDS: FLUoxetine HCL 20 MG CAPSULE (FP) PO SCH (09:22)
[2017-01-07] MEDS: MULTIVITAMINS (DAILY MVI) TABLET (FP) PO SCH (09:22)
[2017-01-07] MEDS: CHOLECALCIFEROL (VITAMIN D3) 1,000 UNIT TABLET (FP) PO SCH (09:22)
--- NOTE | 2017-01-07 09:41 | PN ---
Progress Note (short form) - Note Progress Note: Neurology History of Present Illness The patient is a 61 year old female, with a significant past medical history of Down's syndrome, Hypothyroidism, Osteoporosis, severe dementia from [facility] who presents to the emergency department after syncopizing in the bathroom. Patient presents with mitten sewer who states the patient was having breakfast and went to the bathroom. As per mitten sewer, patient was seen holding the wall and subsequently passed out. Technical Spec caught her and lowered her to the ground. Patient was unconscious for about 5 seconds before awakening. However, while pt was still lying on the floor, she became unresponsive, no convulsions, no seizure activity or tongue biting. CT head completed and did not show acute changes, ventricular dilation visualized with moderate volume loss. Echo completed and normal LV function but also mild MR and TR notde. Active Medications Calcium Carbonate/Cholecalciferol (Os-Krishna 500+D -) 1 tab PO BID [facility] Last Admin: 01/07/17 09:22 Dose: 1 tab Cholecalciferol (Vitamin D3 -) 2,000 unit PO DAILY [facility] Last Admin: 01/07/17 09:22 Dose: 2,000 unit Divalproex Sodium (Depakote Sprinkle Caps -) 125 mg PO HS [facility] Docusate Sodium (Colace -) 100 mg PO BID [facility] Last Admin: 01/07/17 09:22 Dose: 100 mg Fluoxetine HCl (Prozac -) 20 mg PO DAILY [facility] Last Admin: 01/07/17 09:22 Dose: 20 mg Levothyroxine Sodium (Synthroid -) 100 mcg PO DAILY@0700 [facility] Last Admin: 01/07/17 06:12 Dose: 100 mcg Multivitamins/Minerals/Vitamin C (Tab-A-Vit -) 1 tab PO DAILY [facility] Last Admin: 01/07/17 09:22 Dose: 1 tab *Physical Exam Vital Signs Temperature 98 F 01/07/17 06:00 Pulse Rate 54 L 01/07/17 06:00 Respiratory Rate 20 01/07/17 06:00 Blood Pressure 90/44 01/07/17 06:00 O2 Sat by Pulse Oximetry (%) 95 01/06/17 21:58 "GENERAL: Awake, alert, and fully oriented, in no acute distress HEAD: No signs of trauma EYES: PERRLA, EOMI, sclera anicteric, conjunctiva clear ENT: Auricles normal inspection, hearing grossly normal, nares patent, oropharynx clear without exudates. Moist mucosa NECK: Normal ROM, supple, no lymphadenopathy, JVD, or masses LUNGS: Breath sounds equal, clear to auscultation bilaterally. No wheezes, and no crackles HEART: Regular rate and rhythm, normal S1 and S2, no murmurs, rubs or gallops ABDOMEN: Soft, nontender, normoactive bowel sounds. No guarding, no rebound. No masses EXTREMITIES: Normal range of motion, no edema. No clubbing or cyanosis. No cords, erythema, or tenderness NEUROLOGICAL: Cranial nerves II through XII grossly intact. Moving extremities grossly, sensory intact. SKIN: Warm, Dry, normal turgor, no rashes or lesions noted. CBCD WBC 7.6 K/mm3 (4.0-10.0) 01/05/17 06:05 RBC 3.89 M/mm3 (3.60-5.2) 01/05/17 06:05 Hgb 13.8 GM/dL (10.7-15.3) 01/05/17 06:05 Hct 39.5 % (32.4-45.2) 01/05/17 06:05 MCV 101.5 fl (80-96) H 01/05/17 06:05 MCHC 34.9 g/dl (32.0-36.0) 01/05/17 06:05 RDW 14.2 % (11.6-15.6) 01/05/17 06:05 Plt Count 282 K/MM3 (134-434) 01/05/17 06:05 MPV 8.8 fl (7.5-11.1) 01/05/17 06:05 CMP Sodium 139 mmol/L (136-145) 01/05/17 06:05 Potassium 4.2 mmol/L (3.5-5.1) 01/05/17 06:05 Chloride 101 mmol/L (98-107) 01/05/17 06:05 Carbon Dioxide 31 mmol/L (21-32) 01/05/17 06:05 Anion Gap 7 (8-16) L 01/05/17 06:05 BUN 15 mg/dL (7-18) 01/05/17 06:05 Creatinine 0.7 mg/dL (0.55-1.02) 01/05/17 06:05 Creat Clearance w eGFR > 60 (>60) 01/05/17 06:05 Calcium 8.5 mg/dL (8.5-10.1) 01/05/17 06:05 Total Bilirubin 0.5 mg/dL (0.2-1.0) 01/05/17 06:05 AST 21 U/L (15-37) D 01/05/17 06:05 ALT 22 U/L (12-78) 01/05/17 06:05 Alkaline Phosphatase 87 U/L (45-117) 01/05/17 06:05 Total Protein 6.7 g/dl (6.4-8.2) 01/05/17 06:05 Albumin 3.0 g/dl (3.4-5.0) L 01/05/17 06:05 Medical Decision Making 61 year old female, with a significant past medical history of Down's syndrome, Hypothyroidism, Osteoporosis, severe dementia from [facility] who presents to the emergency department after syncopizing in the bathroom. Patient presents with mitten sewer who states the patient was having breakfast and went to the bathroom. As per mitten sewer, patient was seen holding the wall and subsequently passed out. Technical Spec caught her and lowered her to the ground. Patient was unconscious for about 5 seconds before awakening. However, while pt was still lying on the floor, she became unresponsive, no convulsions, no seizure activity or tongue biting. CT head completed and did not show acute changes, ventricular dilation visualized with moderate volume loss. Echo completed and normal LV function but also mild MR and TR noted. Would not start epilepsy medication at this time. Cardiac follow up of Echo. Down Syndrome treatment is supportive, no specific medication. Psych discontinued Respirdal and Prozac decreased. Can continue synthroid for hypothyroidism.
[2017-01-07] MEDS ORDERED: PT OWN MED DRAWER 7, Y5N ONE (09:42)
[2017-01-07] MEDS ORDERED: DIVALPROEX SODIUM 125 MG SPRINKLE CAPS (FP) PO SCH ×2 (10:00→22:00)
--- NOTE | 2017-01-07 14:37 | PN ---
Physical Exam: SUBJECTIVE: Patient seen and examined this AM. No complaints. No CP, no SOB, no fevers, no chills. At around 8AM notified by nursing staff that patient had 4 second pause. Cardiology notified, last dose of metoprolol on 01/06 10:19AM. Will watch for another day. Discontinued the discharge. OBJECTIVE: Vital Signs Period Temp Pulse Resp BP Sys/Enamorado Pulse Ox Last 24 Hr 97.8 F-98.7 F 50-93 18-20 90-105/33-58 95-95 GEN: AAOx3, NAD HNT: Pupillary exam not tolerated, EOMi, No cervical LAD CV: S1, S2, RRR, no MRG LUNG: CTABL, no wheezes ABD: Soft, NT, ND MSK: No edema, no erythema Neuro: Cranial Nerves 2-12 grossly intact No sensation deficits MSK 5/5 in all extremities Reflexes 2+ in all extremities Active Medications Generic Name Dose Route Start Last Admin Trade Name Freq PRN Reason Stop Dose Admin Calcium Carbonate/Cholecalciferol 1 tab 01/04/17 22:00 01/07/17 09:22 Os-Krishna 500+D - PO 1 tab BID BRTITNI Administration Cholecalciferol 2,000 unit 01/05/17 10:00 01/07/17 09:22 Vitamin D3 - PO 2,000 unit DAILY BRITTNI Administration Divalproex Sodium 125 mg 01/07/17 22:00 Depakote Sprinkle Caps - PO HS BRITTNI Docusate Sodium 100 mg 01/04/17 22:00 01/07/17 09:22 Colace - PO 100 mg BID BRITTNI Administration Fluoxetine HCl 20 mg 01/06/17 11:25 01/07/17 09:22 Prozac - PO 20 mg DAILY BRITTNI Administration Levothyroxine Sodium 100 mcg 01/05/17 07:00 01/07/17 06:12 Synthroid - PO 100 mcg DAILY@0700 BRITTNI Administration Multivitamins/Minerals/Vitamin C 1 tab 01/05/17 10:00 01/07/17 09:22 Tab-A-Vit - PO 1 tab DAILY BRITTNI Administration ASSESSMENT/PLAN: Pt is a 61yo F with a hx of Down Syndrome who presents with staring spells with subsequent loss of muscle tone, likely an Atonic Seizure. Patient presented with similar complaints in July 2016, had negative echo and head CT. 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 - As per Psych - decreased Prozac to 20mg - Discontinued Risperdal - TSH WNL, Head CT WNL - As per Neurology, no need to start antiepileptic meds # Syncope - Echo WNL - D/c'd metoprolol - No syncopal episodes in hospitalization # Pyuria - UCx negative - Discontinued IV Ceftriaxone # Hx of Hypothyroidism - Continue Synthroid # Hx of MDD - Decreased Prozac to 20mg - Decreased Depakote to 125mg QHS # Hx of Osteoporosis - Continue Calcium and Vitamin D # FEN - Fluids: None - Electrolytes: Monitor - Nutrition: Regular Diet # Prophylaxis - DVT: SCDs - GI: Not needed - Deconditioning: PT - walked 150 feet # Dispo - Admit to tele - Monitor for seizures Dr. Katharina Ashraf, PGY-1 Internal Medicine Visit type - Emergency Visit Emergency Visit: No - New Patient This patient is new to me today: No - Critical Care Critical Care patient: No - Discharge Referral Referred to [facility] Med [facility].C[facility] No
--- NOTE | 2017-01-07 15:00 | PN ---
Progress Note, Physician History of Present Illness: Cardiology consult seen in followup Telemetry: sinus bradycardia with 3.7 sec pause. - Current Medication List Current Medications: Active Medications Calcium Carbonate/Cholecalciferol (Os-Krishna 500+D -) 1 tab PO BID [facility] Last Admin: 01/07/17 09:22 Dose: 1 tab Cholecalciferol (Vitamin D3 -) 2,000 unit PO DAILY [facility] Last Admin: 01/07/17 09:22 Dose: 2,000 unit Divalproex Sodium (Depakote Sprinkle Caps -) 125 mg PO [facility] Docusate Sodium (Colace -) 100 mg PO BID [facility] Last Admin: 01/07/17 09:22 Dose: 100 mg Fluoxetine HCl (Prozac -) 20 mg PO DAILY [facility] Last Admin: 01/07/17 09:22 Dose: 20 mg Levothyroxine Sodium (Synthroid -) 100 mcg PO DAILY@0700 [facility] Last Admin: 01/07/17 06:12 Dose: 100 mcg Multivitamins/Minerals/Vitamin C (Tab-A-Vit -) 1 tab PO DAILY [facility] Last Admin: 01/07/17 09:22 Dose: 1 tab - Objective Vital Signs: Vital Signs Temperature 97.8 F 01/07/17 13:46 Pulse Rate 55 L 01/07/17 13:46 Respiratory Rate 18 01/07/17 13:46 Blood Pressure 98/58 01/07/17 13:46 O2 Sat by Pulse Oximetry (%) 95 01/06/17 21:58 Constitutional: Yes: No Distress Eyes: Yes: Conjunctiva Clear HENT: Yes: Atraumatic Neck: Yes: Supple Cardiovascular: Yes: Regular Rate and Rhythm Respiratory: Yes: Regular, CTA Bilaterally Gastrointestinal: Yes: Normal Bowel Sounds Edema: No Peripheral Pulses WNL: No Labs: CBC, BMP 01/05/17 06:05 01/05/17 06:05 Problem List - Problems (1) Syncope Code(s): R55 - SYNCOPE AND COLLAPSE Qualifiers: Syncope type: unspecified Qualified Code(s): R55 - Syncope and collapse Assessment/Plan Brief sinus pause noted in early AM. Bradycardia is unlikely to be the cause of her syncope. Last received BB on Saturday which may be still active. Continue telemetry for another 24 hours.
--- NOTE | 2017-01-07 15:22 | PN ---
Teaching Attending Note Name of Resident: Katharina Ashraf ATTENDING PHYSICIAN STATEMENT I saw and evaluated the patient. I reviewed the resident's note and discussed the case with the resident. I agree with the resident's findings and plan as documented. SUBJECTIVE: Patient had 4 second pauses x2, otherwise has no symptoms. OBJECTIVE: Vital Signs Temperature 97.8 F 01/07/17 13:46 Pulse Rate 55 L 01/07/17 13:46 Respiratory Rate 18 01/07/17 13:46 Blood Pressure 98/58 01/07/17 13:46 O2 Sat by Pulse Oximetry (%) 96 01/07/17 13:00 CBCD WBC 7.6 K/mm3 (4.0-10.0) 01/05/17 06:05 RBC 3.89 M/mm3 (3.60-5.2) 01/05/17 06:05 Hgb 13.8 GM/dL (10.7-15.3) 01/05/17 06:05 Hct 39.5 % (32.4-45.2) 01/05/17 06:05 MCV 101.5 fl (80-96) H 01/05/17 06:05 MCHC 34.9 g/dl (32.0-36.0) 01/05/17 06:05 RDW 14.2 % (11.6-15.6) 01/05/17 06:05 Plt Count 282 K/MM3 (134-434) 01/05/17 06:05 MPV 8.8 fl (7.5-11.1) 01/05/17 06:05 CMP Sodium 139 mmol/L (136-145) 01/05/17 06:05 Potassium 4.2 mmol/L (3.5-5.1) 01/05/17 06:05 Chloride 101 mmol/L (98-107) 01/05/17 06:05 Carbon Dioxide 31 mmol/L (21-32) 01/05/17 06:05 Anion Gap 7 (8-16) L 01/05/17 06:05 BUN 15 mg/dL (7-18) 01/05/17 06:05 Creatinine 0.7 mg/dL (0.55-1.02) 01/05/17 06:05 Creat Clearance w eGFR > 60 (>60) 01/05/17 06:05 Random Glucose 96 mg/dL (74-106) 01/05/17 06:05 Calcium 8.5 mg/dL (8.5-10.1) 01/05/17 06:05 Total Bilirubin 0.5 mg/dL (0.2-1.0) 01/05/17 06:05 AST 21 U/L (15-37) D 01/05/17 06:05 ALT 22 U/L (12-78) 01/05/17 06:05 Alkaline Phosphatase 87 U/L (45-117) 01/05/17 06:05 Total Protein 6.7 g/dl (6.4-8.2) 01/05/17 06:05 Albumin 3.0 g/dl (3.4-5.0) L 01/05/17 06:05 CARDIAC ENZYMES Creatine Kinase 101 IU/L (26-192) 01/04/17 11:30 Troponin I < 0.02 ng/ml (0.00-0.05) 01/04/17 11:30 Current Medications Generic Name Dose Route Start Last Admin Trade Name Clarence PRN Reason Stop Dose Admin Calcium Carbonate/Cholecalciferol 1 tab 01/04/17 22:00 01/07/17 09:22 Os-Krishna 500+D - PO 1 tab BID BRITTNI Administration Cholecalciferol 2,000 unit 01/05/17 10:00 01/07/17 09:22 Vitamin D3 - PO 2,000 unit DAILY BRITTNI Administration Divalproex Sodium 125 mg 01/07/17 22:00 Depakote Sprinkle Caps - PO HS BRITTNI Docusate Sodium 100 mg 01/04/17 22:00 01/07/17 09:22 Colace - PO 100 mg BID BRITTNI Administration Fluoxetine HCl 20 mg 01/06/17 11:25 01/07/17 09:22 Prozac - PO 20 mg DAILY BRITTNI Administration Levothyroxine Sodium 100 mcg 01/05/17 07:00 01/07/17 06:12 Synthroid - PO 100 mcg DAILY@0700 BRITTNI Administration Multivitamins/Minerals/Vitamin C 1 tab 01/05/17 10:00 01/07/17 09:22 Tab-A-Vit - PO 1 tab DAILY BRITTNI Administration Home Medications Medication Instructions Recorded Calcium Carbonate/Vitamin D3 1 each PO BID 08/08/16 [Calcium 600-Vit D3 200 Tablet] Cholecalciferol (Vitamin D3) 2,000 unit PO DAILY 08/08/16 [Vitamin D3 -] Docusate Sodium [Colace -] 100 mg PO BID 08/08/16 Levothyroxine [Synthroid -] 100 mcg PO DAILY 08/08/16 Multivitamin [Poly-Vitamin] 1 each PO DAILY 08/08/16 Divalproex Sprinkle [Depakote 125 mg PO HS #30 cap.sprink 01/06/17 Sprinkle -] Fluoxetine HCl [Prozac -] 20 mg PO DAILY #11 tab 01/06/17 PE: steady on her feet now. rest of physical exam by the resident's note ASSESSMENT AND PLAN: 61 yo F with significant pmhx of Down syndrome, hypothyroidism, depression and dementia placed of observation for possible syncope vs. seizure. # Acute 4 second pauses at the monitor, will continue to monitor her. discussed with yardage caller. # Requesting to Have EEG, will have EEG done prior to discharge # Acute Syncope vs seizure activity , patient never had a seizure activity before, as per Aid who is taking care the patient, started to have issues after starting on Risperadone, as per Psychiatrist to discontinue Risperadone, start the patient on Depakote as per Pshcy/recommendations. Will reduce the dose of Depakote to 125mg po qhs dosing, discussed with agrees with the plan , also will reduce the dose of Prozac to 20mg po daily x 7 days then 10mg x 7 days can follow up with her psychiatrist for further management of her care. [facility] report reviewed. Echo and head ct was done , report reviewed. # Hx of Depression/ Insomia patient , will discontinue Risperadone since can cause seizure activity , instead added depkote 125mg sprinkle qhs once per day as per Pcych. Also will taper prozac to 20mg po daily x 7 days then 10mg x 7 days then discontinue # Hx of Down syndrome # Hx of Hypothyroidism continue meds. can be discharged back to the center in [place] once stable.
[2017-01-08] MEDS: LEVOTHYROXINE NA 100 MCG TABLET (FP) PO SCH (06:13)
--- NOTE | 2017-01-08 09:48 | PN ---
Teaching Attending Note Name of Resident: Katharina Ashraf ATTENDING PHYSICIAN STATEMENT I saw and evaluated the patient. I reviewed the resident's note and discussed the case with the resident. I agree with the resident's findings and plan as documented. SUBJECTIVE: No further pauses on the monitor, patient is getting EEG done. OBJECTIVE: Vital Signs Temperature 98.1 F 01/08/17 06:00 Pulse Rate 61 01/08/17 06:00 Respiratory Rate 19 01/08/17 06:00 Blood Pressure 115/56 01/08/17 06:00 O2 Sat by Pulse Oximetry (%) 97 01/08/17 05:00 Current Medications Generic Name Dose Route Start Last Admin Trade Name Freq PRN Reason Stop Dose Admin Calcium Carbonate/Cholecalciferol 1 tab 01/04/17 22:00 01/07/17 22:13 Os-Krishna 500+D - PO 1 tab BID BRITTNI Administration Cholecalciferol 2,000 unit 01/05/17 10:00 01/07/17 09:22 Vitamin D3 - PO 2,000 unit DAILY [facility] Administration Divalproex Sodium 125 mg 01/07/17 22:00 01/07/17 22:13 Depakote Sprinkle Caps - PO 125 mg HS BRITTNI Administration Docusate Sodium 100 mg 01/04/17 22:00 01/07/17 22:13 Colace - PO 100 mg BID BRITTNI Administration Fluoxetine HCl 20 mg 01/06/17 11:25 01/07/17 09:22 Prozac - PO 20 mg DAILY [facility] Administration Levothyroxine Sodium 100 mcg 01/05/17 07:00 01/08/17 06:13 Synthroid - PO 100 mcg DAILY@0700 BR[facility] Administration Multivitamins/Minerals/Vitamin C 1 tab 01/05/17 10:00 01/07/17 09:22 Tab-A-Vit - PO 1 tab DAILY [facility] Administration Home Medications Medication Instructions Recorded Calcium Carbonate/Vitamin D3 1 each PO BID 08/08/16 [Calcium 600-Vit D3 200 Tablet] Cholecalciferol (Vitamin D3) 2,000 unit PO DAILY 08/08/16 [Vitamin D3 -] Docusate Sodium [Colace -] 100 mg PO BID 08/08/16 Levothyroxine [Synthroid -] 100 mcg PO DAILY 08/08/16 Multivitamin [Poly-Vitamin] 1 each PO DAILY 08/08/16 Divalproex Sprinkle [Depakote 125 mg PO HS #30 cap.sprink 01/06/17 Sprinkle -] Fluoxetine HCl [Prozac -] 20 mg PO DAILY #11 tab 01/06/17 ASSESSMENT AND PLAN: 61 yo F with significant pmhx of Down syndrome, hypothyroidism, depression and dementia placed of observation for possible syncope vs. seizure. # No further Pauses today, will discharge the patient back to her center, post EEG that's being done today. # s/p Syncope vs seizure activity , patient never had a seizure activity before , as per Aid who is taking care the patient, started to have issues after starting on Risperadone, as per Psychiatrist to discontinue Risperadone, start the patient on Depakote as per Pshcy/recommendations. Will reduce the dose of Depakote to 125mg po qhs dosing, discussed with agrees with the plan , also will reduce the dose of Prozac to 20mg po daily x 7 days then 10mg x 7 days can follow up with her psychiatrist for further management of her care. [facility] report reviewed. Echo and head ct was done , report reviewed. # Hx of Depression/ Insomia patient , will discontinue Risperadone since can cause seizure activity , instead added depkote 125mg sprinkle qhs once per day as per Pcych. Also will taper prozac to 20mg po daily x 7 days then 10mg x 7 days then discontinue # Hx of Down syndrome # Hx of Hypothyroidism continue meds. can be discharged back to the center. follow with Neuro for EEG
--- NOTE | 2017-01-08 09:53 | DS ---
Physical Exam: SUBJECTIVE: Patient seen and examined this AM. No complaints at this time. No pauses on tele monitor last night. No pain, pt ambulating well in AM OBJECTIVE: Vital Signs Period Temp Pulse Resp BP Sys/Enam[place]ado Pulse Ox Last 24 Hr 97.8 F-98.7 F 55-61 18-20 94-115/50-74 96-97 PHYSICAL EXAM GEN: AAOx3, NAD HNT: Pupillary exam not tolerated, EOMi, No cervical LAD CV: S1, S2, RRR, no MRG LUNG: CTABL, no wheezes ABD: Soft, NT, ND MSK: No edema, no erythema Neuro: Cranial Nerves 2-12 grossly intact No sensation deficits MSK 5/5 in all extremities Reflexes 2+ in all extremities LABS Laboratory Last Values WBC 7.6 K/mm3 (4.0-10.0) 01/05/17 06:05 RBC 3.89 M/mm3 (3.60-5.2) 01/05/17 06:05 Hgb 13.8 GM/dL (10.7-15.3) 01/05/17 06:05 Hct 39.5 % (32.4-45.2) 01/05/17 06:05 MCV 101.5 fl (80-96) H 01/05/17 06:05 MCH 35.5 pg (25.7-33.7) H 01/05/17 06:05 MCHC 34.9 g/dl (32.0-36.0) 01/05/17 06:05 RDW 14.2 % (11.6-15.6) 01/05/17 06:05 Plt Count 282 K/MM3 (134-434) 01/05/17 06:05 MPV 8.8 fl (7.5-11.1) 01/05/17 06:05 Neutrophils % 83.4 % (42.8-82.8) H D 01/04/17 09:49 Lymphocytes % 8.9 % (8-40) D 01/04/17 09:49 Monocytes % 7.0 % (3.8-10.2) 01/04/17 09:49 Eosinophils % 0.1 % (0-4.5) 01/04/17 09:49 Basophils % 0.6 % (0-2.0) 01/04/17 09:49 Sodium 139 mmol/L (136-145) 01/05/17 06:05 Potassium 4.2 mmol/L (3.5-5.1) 01/05/17 06:05 Chloride 101 mmol/L (98-107) 01/05/17 06:05 Carbon Dioxide 31 mmol/L (21-32) 01/05/17 06:05 Anion Gap 7 (8-16) L 01/05/17 06:05 BUN 15 mg/dL (7-18) 01/05/17 06:05 Creatinine 0.7 mg/dL (0.55-1.02) 01/05/17 06:05 Creat Clearance w eGFR > 60 (>60) 01/05/17 06:05 Random Glucose 96 mg/dL (74-106) 01/05/17 06:05 Calcium 8.5 mg/dL (8.5-10.1) 01/05/17 06:05 Total Bilirubin 0.5 mg/dL (0.2-1.0) 01/05/17 06:05 AST 21 U/L (15-37) D 01/05/17 06:05 ALT 22 U/L (12-78) 01/05/17 06:05 Alkaline Phosphatase 87 U/L (45-117) 01/05/17 06:05 Creatine Kinase 101 IU/L (26-192) 01/04/17 11:30 Troponin I < 0.02 ng/ml (0.00-0.05) 01/04/17 11:30 B-Natriuretic Peptide 53.79 pg/ml (5-125) 01/04/17 11:30 Total Protein 6.7 g/dl (6.4-8.2) 01/05/17 06:05 Albumin 3.0 g/dl (3.4-5.0) L 01/05/17 06:05 TSH 2.52 uIU/ml (0.358-3.74) D 01/04/17 11:30 Free T4 1.47 ng/dl (0.76-1.46) H 01/04/17 11:30 Free T3 2.2 pg/ml (2.0-4.4) 01/04/17 15:05 Urine Color Yellow 01/04/17 10:04 Urine Appearance Slcloudy 01/04/17 10:04 Urine pH 6.0 (5.0-8.0) D 01/04/17 10:04 Ur Specific [place] 1.015 (1.005-1.025) 01/04/17 10:04 Urine Protein Negative (NEGATIVE) 01/04/17 10:04 Urine Glucose (UA) Negative (NEGATIVE) 01/04/17 10:04 Urine Ketones Negative (NEGATIVE) 01/04/17 10:04 Urine Blood Negative (NEGATIVE) 01/04/17 10:04 Urine Nitrite Negative (NEGATIVE) 01/04/17 10:04 Urine Bilirubin Negative (NEGATIVE) 01/04/17 10:04 Urine Urobilinogen Negative mg/dL (0.2-1.0) 01/04/17 10:04 Ur Leukocyte Esterase 2+ (NEGATIVE) H 01/04/17 10:04 Urine RBC 1 /hpf (0-3) 01/04/17 10:04 Urine WBC 13 /hpf (3-5) 01/04/17 10:04 Ur Epithelial Cells Rare /hpf (FEW) 01/04/17 10:04 Hyaline Casts 3 /lpf 01/04/17 10:04 Urine Mucus Rare 01/04/17 10:04 HOSPITAL COURSE: Date of Admission:01/04/17 Date of Discharge: 01/08/17 Ms. Jessica is a 61yo F with a hx of Down Syndrome who presented with staring spells and syncope. # Likely Atonic Seizure - The patient presented with likely an atonic seizure with loss of muscle tone and urinary incontinence. She has no seizure history and was on no medications. Noncontrast head CT was negative. She had no further seizures in the hospital. She was seen by the neurologist here, who does not recommend starting her on antiepileptic medications at this time. We discontinued Risperdal since it can lower the seizure threshold. She received an EEG before she left. For the results, the [facility] should contact the hospital after it is read. # Syncope - The patient was seen by Cardiology in the hospital. EKG was within normal limits, and Echocardiogram showed normal LV function without valvular dysfunction. As per Cardiology, she was placed on metoprolol. The patient subsequently developed two episodes of 4 second pauses, asymptomatic. Cardiology felt that a pacemaker was not necessary. After 24 hours the patient did not have any more pauses, and was safe for discharge # History of Mood Disorder - Psychiatry saw the patient in the hospital and recommended gradual tapering off of Prozac. The patient will be discharged on 20mg at night for 7 days and 10mg for another 7 days. The patient's Risperdal was discontinued. As per Psychiatry, the patient was started Depakote sprinkles 125mg HS. The patient will followup with her psychiatrist at [facility]. # Macrocytosis - No anemia appreciated. We recommend that her physician at [facility] check a B12 and folate level on the patient. For all other chronic medical problems, we continued the patients home medications. The patient's aid is aware of the hospital course and agrees with the plan. A call was placed to the nursing spring up supervisor at [facility] who also agrees with the plan. Minutes to complete discharge: 55 <Katharina Ashraf - Last Filed: 01/08/17 10:02> Physical Exam: SUBJECTIVE: Patient seen and examined <Apolinar Matt - Last Filed: 01/08/17 18:25> Discharge Summary Reason For Visit: SYNCOPE Current Active Problems Syncope (Acute) - Home Medications Comprehensive Discharge Medication List: Ambulatory Orders Calcium Carbonate/Vitamin D3 [Calcium 600-Vit D3 200 Tablet] 1 each PO BID 08/08 Cholecalciferol (Vitamin D3) [Vitamin D3 -] 2,000 unit PO DAILY 08/08/16 Docusate Sodium [Colace -] 100 mg PO BID 08/08/16 Levothyroxine [Synthroid -] 100 mcg PO DAILY 08/08/16 Multivitamin [Poly-Vitamin] 1 each PO DAILY 08/08/16 Divalproex Sprinkle [Depakote Sprinkle -] 125 mg PO HS #30 cap.sprink 01/06/17 Fluoxetine HCl [Prozac -] 20 mg PO DAILY #11 tab 01/06/17 <Katharina Ashraf - Last Filed: 01/08/17 10:02> - Home Medications Comprehensive Discharge Medication List: Ambulatory Orders RX: Calcium Carbonate/Vitamin D3 [Calcium 600-Vit D3 200 Tablet] 1 each PO BID 08/08/16 RX: Cholecalciferol (Vitamin D3) [Vitamin D3 -] 2,000 unit PO DAILY 08/08/16 RX: Docusate Sodium [Colace -] 100 mg PO BID 08/08/16 RX: Levothyroxine [Synthroid -] 100 mcg PO DAILY 08/08/16 RX: Multivitamin [Poly-Vitamin] 1 each PO DAILY 08/08/16 RX: Divalproex Sprinkle [Depakote Sprinkle -] 125 mg PO HS #30 cap.sprink RX: Fluoxetine HCl [Prozac -] 20 mg PO DAILY #11 tab 01/06/17 <Apolinar Matt - Last Filed: 01/08/17 18:25> Condition: Stable - Instructions Diet, Activity, Other Instructions: - Please continue to watch for fainting or staring spells - Please note the medication changes we made below - Continue to monitor your blood pressure regularly MEDICATION CHANGES: - We discontinued your Risperdal - We added Depakote Sprinkles 125mg at night - We decreased your Prozac to 20mg QD x 1 week, then take half tablet for the next week FOLLOWUP: - Please followup with your doctors at [facility]. - Please have them check a B12 and folate level on you - Please followup with a neurologist at [facility] Referrals: Sanjana Baez MD [Staff Physician] - Bebeto Kendrick MD [Staff Physician] - Eder Ceja MD [Staff Physician] - (Followup regarding EEG results) Disposition: CARE HOME FACILITY - Discharge Referral Referred to [facility] Med P.C.: No <Katharina Ashraf - Last Filed: 01/08/17 10:02> This patient is new to me today: No Emergency Visit: Yes ED Registration Date: 01/04/17 Care time: The patient presented to the Emergency Department on the above date and was hospitalized for further evaluation of their emergent condition. Critical Care patient: No - Discharge Referral Referred to [facility] Med P.C.: No <Apolinar Matt - Last Filed: 01/08/17 18:25>
[2017-01-08] MEDS: MULTIVITAMINS (DAILY MVI) TABLET (FP) PO SCH (09:55)
[2017-01-08] MEDS: FLUoxetine HCL 20 MG CAPSULE (FP) PO SCH (09:56)
[2017-01-08] MEDS: CHOLECALCIFEROL (VITAMIN D3) 1,000 UNIT TABLET (FP) PO SCH (09:56)
[2017-01-08] MEDS: DOCUSATE SODIUM 100 MG CAPSULE (FP) PO SCH (09:56)
[2017-01-08] MEDS: CALCIUM 500MG/VIT-D 200 UNITS COMBO TABLET (FP) PO SCH (09:56)
--- NOTE | 2017-01-08 10:55 | PN ---
Progress Note (short form) - Note Progress Note: Neurology History of Present Illness The patient is a 61 year old female, with a significant past medical history of Down's syndrome, Hypothyroidism, Osteoporosis, severe dementia from [facility] who presents to the emergency department after syncopizing in the bathroom. Patient presents with investor who states the patient was having breakfast and went to the bathroom. As per investor, patient was seen holding the wall and subsequently passed out. Reactor Kettle Operator caught her and lowered her to the ground. Patient was unconscious for about 5 seconds before awakening. However, while pt was still lying on the floor, she became unresponsive, no convulsions, no seizure activity or tongue biting. CT head completed and did not show acute changes, ventricular dilation visualized with moderate volume loss. Echo completed and normal LV function but also mild MR and TR noted. Neurologically stable and pending discharge. Active Medications Calcium Carbonate/Cholecalciferol (Os-Krishna 500+D -) 1 tab PO BID [facility] Last Admin: 01/08/17 09:56 Dose: 1 tab Cholecalciferol (Vitamin D3 -) 2,000 unit PO DAILY [facility] Last Admin: 01/08/17 09:56 Dose: 2,000 unit Divalproex Sodium (Depakote Sprinkle Caps -) 125 mg PO HS [facility] Last Admin: 01/07/17 22:13 Dose: 125 mg Docusate Sodium (Colace -) 100 mg PO BID [facility] Last Admin: 01/08/17 09:56 Dose: 100 mg Fluoxetine HCl (Prozac -) 20 mg PO DAILY [facility] Last Admin: 01/08/17 09:56 Dose: 20 mg Levothyroxine Sodium (Synthroid -) 100 mcg PO DAILY@0700 [facility] Last Admin: 01/08/17 06:13 Dose: 100 mcg Multivitamins/Minerals/Vitamin C (Tab-A-Vit -) 1 tab PO DAILY [facility] Last Admin: 01/08/17 09:55 Dose: 1 tab *Physical Exam Vital Signs Temperature 98.1 F 01/08/17 06:00 Pulse Rate 61 01/08/17 06:00 Respiratory Rate 19 01/08/17 06:00 Blood Pressure 115/56 01/08/17 06:00 O2 Sat by Pulse Oximetry (%) 97 01/08/17 05:00 "GENERAL: Awake, alert, and fully oriented, in no acute distress HEAD: No signs of trauma EYES: PERRLA, EOMI, sclera anicteric, conjunctiva clear ENT: Auricles normal inspection, hearing grossly normal, nares patent, oropharynx clear without exudates. Moist mucosa NECK: Normal ROM, supple, no lymphadenopathy, JVD, or masses LUNGS: Breath sounds equal, clear to auscultation bilaterally. No wheezes, and no crackles HEART: Regular rate and rhythm, normal S1 and S2, no murmurs, rubs or gallops ABDOMEN: Soft, nontender, normoactive bowel sounds. No guarding, no rebound. No masses EXTREMITIES: Normal range of motion, no edema. No clubbing or cyanosis. No cords, erythema, or tenderness NEUROLOGICAL: Cranial nerves II through XII grossly intact. Moving extremities grossly, sensory intact. SKIN: Warm, Dry, normal turgor, no rashes or lesions noted. CBCD WBC 7.6 K/mm3 (4.0-10.0) 01/05/17 06:05 RBC 3.89 M/mm3 (3.60-5.2) 01/05/17 06:05 Hgb 13.8 GM/dL (10.7-15.3) 01/05/17 06:05 Hct 39.5 % (32.4-45.2) 01/05/17 06:05 MCV 101.5 fl (80-96) H 01/05/17 06:05 MCHC 34.9 g/dl (32.0-36.0) 01/05/17 06:05 RDW 14.2 % (11.6-15.6) 01/05/17 06:05 Plt Count 282 K/MM3 (134-434) 01/05/17 06:05 MPV 8.8 fl (7.5-11.1) 01/05/17 06:05 CMP Sodium 139 mmol/L (136-145) 01/05/17 06:05 Potassium 4.2 mmol/L (3.5-5.1) 01/05/17 06:05 Chloride 101 mmol/L (98-107) 01/05/17 06:05 Carbon Dioxide 31 mmol/L (21-32) 01/05/17 06:05 Anion Gap 7 (8-16) L 01/05/17 06:05 BUN 15 mg/dL (7-18) 01/05/17 06:05 Creatinine 0.7 mg/dL (0.55-1.02) 01/05/17 06:05 Creat Clearance w eGFR > 60 (>60) 01/05/17 06:05 Calcium 8.5 mg/dL (8.5-10.1) 01/05/17 06:05 Total Bilirubin 0.5 mg/dL (0.2-1.0) 01/05/17 06:05 AST 21 U/L (15-37) D 01/05/17 06:05 ALT 22 U/L (12-78) 01/05/17 06:05 Alkaline Phosphatase 87 U/L (45-117) 01/05/17 06:05 Total Protein 6.7 g/dl (6.4-8.2) 01/05/17 06:05 Albumin 3.0 g/dl (3.4-5.0) L 01/05/17 06:05 Medical Decision Making 61 year old female, with a significant past medical history of Down's syndrome, Hypothyroidism, Osteoporosis, severe dementia from [facility] who presents to the emergency department after syncopizing in the bathroom. Patient presents with investor who states the patient was having breakfast and went to the bathroom. As per investor, patient was seen holding the wall and subsequently passed out. Reactor Kettle Operator caught her and lowered her to the ground. Patient was unconscious for about 5 seconds before awakening. However, while pt was still lying on the floor, she became unresponsive, no convulsions, no seizure activity or tongue biting. CT head completed and did not show acute changes, ventricular dilation visualized with moderate volume loss. Echo completed and normal LV function but also mild MR and TR noted. Would not start epilepsy medication at this time. Cardiac follow up of Echo. Down Syndrome treatment is supportive, no specific medication. Psych discontinued Respirdal and Prozac decreased. Can continue synthroid for hypothyroidism. For discharge today. No further rec'd at this time.
[2017-01-08 12:37] VITALS: BP 92/50; PULSE 70; TEMP 98
--- NOTE | 2017-01-08 14:09 | PN ---
Progress Note, Physician Chief Complaint: Seen in fu. No events. Telem No pauses. NSR - Current Medication List Current Medications: Active Medications Calcium Carbonate/Cholecalciferol (Os-Krishna 500+D -) 1 tab PO BID [facility] Last Admin: 01/08/17 09:56 Dose: 1 tab Cholecalciferol (Vitamin D3 -) 2,000 unit PO DAILY [facility] Last Admin: 01/08/17 09:56 Dose: 2,000 unit Divalproex Sodium (Depakote Sprinkle Caps -) 125 mg PO HS [facility] Last Admin: 01/07/17 22:13 Dose: 125 mg Docusate Sodium (Colace -) 100 mg PO BID [facility] Last Admin: 01/08/17 09:56 Dose: 100 mg Fluoxetine HCl (Prozac -) 20 mg PO DAILY [facility] Last Admin: 01/08/17 09:56 Dose: 20 mg Levothyroxine Sodium (Synthroid -) 100 mcg PO DAILY@0700 [facility] Last Admin: 01/08/17 06:13 Dose: 100 mcg Multivitamins/Minerals/Vitamin C (Tab-A-Vit -) 1 tab PO DAILY [facility] Last Admin: 01/08/17 09:55 Dose: 1 tab - Objective Vital Signs: Vital Signs Temperature 98 F 01/08/17 10:00 Pulse Rate 70 01/08/17 10:00 Respiratory Rate 18 01/08/17 10:00 Blood Pressure 92/50 01/08/17 10:00 O2 Sat by Pulse Oximetry (%) 97 01/08/17 05:00 Constitutional: Yes: Calm Eyes: Yes: Conjunctiva Clear, EOM Intact HENT: Yes: Atraumatic, Normocephalic Neck: Yes: Supple, Trachea Midline Cardiovascular: Yes: Regular Rate and Rhythm Respiratory: Yes: Regular, CTA Bilaterally Gastrointestinal: Yes: Normal Bowel Sounds Edema: No Labs: CBC, BMP 01/05/17 06:05 01/05/17 06:05 Problem List - Problems (1) Syncope Code(s): R55 - SYNCOPE AND COLLAPSE Qualifiers: Syncope type: unspecified Qualified Code(s): R55 - Syncope and collapse Assessment/Plan No further bradycardic issues off BB. DC telemetry. No further recommendations at this time. Will see as needed.
== END 2017-01-08 15:00 ==
LOC: JER 09:08 → JERBED 12:49 → INTOOBSV 12:49 → J4W 19:00
PROVIDERS: ADMIT Internal Medicine; ATTEND Internal Medicine
DX: R55 Syncope and collapse (principal); N39.0 Urinary tract infection, site not specified; F03.90 Unspecified dementia, unspecified severity, without behavioral disturbance, psychotic disturbance, mood disturbance, and anxiety; Q90.9 Down syndrome, unspecified; E03.9 Hypothyroidism, unspecified; M81.0 Age-related osteoporosis without current pathological fracture; Z88.6 Allergy status to analgesic agent; Z88.2 Allergy status to sulfonamides; F32.9 Major depressive disorder, single episode, unspecified
CPT/HCPCS: 36415; 70450-TC; 71020-TC; 80053; 81003; 81015; 83880; 84439; 84443; 84481; 84484; 85025; 85027; 87086; 93005; 93010; 93306-TC; 95816; 97116-GP; 97161-GP; 99284-25; G0378

== ENCOUNTER 2017-02-13 17:22 | Emergency (ER) | payer OTHER ==
[2017-02-13 17:33] VITALS: BP 101/60; PULSE 66; TEMP 98.2; BMI 25.5
[2017-02-13 18:24] LABS: URINE APPEARANCE CLEAR; URINE BILIRUBIN NEGATIVE (NEGATIVE); URINE BLOOD NEGATIVE (NEGATIVE); URINE COLOR LTYELLOW; URINE GLUCOSE (UA) NEGATIVE (NEGATIVE); URINE KETONE NEGATIVE (NEGATIVE); URINE NITRITE NEGATIVE (NEGATIVE); URINE PROTEIN NEGATIVE (NEGATIVE); URINE UROBILINOGEN NEGATIVE mg/dL (0.2-1.0)
[2017-02-13 18:34] LABS: URINE LEUK ESTERASE 2+ (NEGATIVE)
[2017-02-13 18:38] LABS: URINE HYALINE CAST 6 /lpf; URINE RBC 1 /hpf (0-3); URINE WBC 8 /hpf (3-5)
--- NOTE | 2017-02-13 18:56 | PDOC ---
History of Present Illness - General Chief Complaint: Urinary Problem Stated Complaint: PCP SENT Time Seen by Provider: 02/13/17 18:10 - History of Present Illness Initial Comments: 02/13/17 18:45 Pt. is a 61 y/o female with PMH of downs, MR, dementia, osteoporosis, hypothyroidism, who presents to fast track after being sent over by her PCP for a positive urine culture. Pt. is with her childbirth educator who has a copy of the sensitivity. Pt. has no complaints at this time. Denies fevers, chills, nausea, vomiting, frequency, urgeny, dysuria, and hematuria. Past History - Travel Traveled outside of the country in the last 30 days: No Close contact w/someone who was outside of country & ill: No - Past Medical History Allergies/Adverse Reactions: Allergies Allergy/AdvReac Type Severity Reaction Status Date / Time aspirin Allergy Unknown Verified 02/13/17 17:33 Sulfa (Sulfonamide Allergy Unknown Verified 02/13/17 17:33 Antibiotics) Home Medications: Ambulatory Orders Calcium Carbonate/Vitamin D3 [Calcium 600-Vit D3 200 Tablet] 1 each PO BID 08/08 Cholecalciferol (Vitamin D3) [Vitamin D3 -] 2,000 unit PO DAILY 08/08/16 Docusate Sodium [Colace -] 100 mg PO BID 08/08/16 Levothyroxine [Synthroid -] 100 mcg PO DAILY 08/08/16 Multivitamin [Poly-Vitamin] 1 each PO DAILY 08/08/16 Divalproex Sprinkle [Depakote Sprinkle -] 125 mg PO HS #30 cap.sprink 01/06/17 Fluoxetine HCl [Prozac -] 20 mg PO DAILY #11 tab 01/06/17 Haloperidol [Haldol -] 1 mg PO DAILY 02/13/17 Nitrofurantoin Monohyd/M-Cryst [Macrobid -] 100 mg PO BID #14 capsule 02/13/17 Cardiac Disorders: Yes (VALVE DEFECT) Dementia: Yes Thyroid Disease: Yes (HYPO) Other medical history: DOWNS, OSTEOPOROSIS, MR - Immunization History Immunization Up to Date: Yes - Suicide/Smoking/Psychosocial Hx Smoking Status: No Smoking History: Never smoked Have you smoked in the past 12 months: No Number of Cigarettes Smoked Daily: 0 Hx Alcohol Use: No Drug/Substance Use Hx: No Substance Use Type: None Review of Systems - Review of Systems Able to Perform ROS?: Yes Comments:: 02/13/17 18:01 CONSTITUTIONAL: Absent: fever, chills, diaphoresis, generalized weakness, malaise, loss of appetite HEENT: Absent: rhinorrhea, nasal congestion, throat pain, throat swelling, difficulty swallowing, mouth swelling, ear pain, eye pain, visual Changes CARDIOVASCULAR: Absent: chest pain, loss of consciousness, palpitations, irregular heart rate, peripheral edema RESPIRATORY: Absent: cough, shortness of breath, dyspnea with exertion, orthopnea, wheezing, stridor, hemoptysis GASTROINTESTINAL: Absent: abdominal pain, abdominal distension, nausea, vomiting, diarrhea, constipation, melena, hematochezia GENITOURINARY: Absent: dysuria, frequency, urgency, hesitancy, hematuria, flank pain, genital pain MUSCULOSKELETAL: Absent: myalgia, arthralgia, joint swelling SKIN: Absent: rash, itching, pallor HEMATOLOGIC/IMMUNOLOGIC: Absent: easy bleeding, easy bruising, lymphadenopathy, frequent infections ENDOCRINE: Absent: unexplained weight gain, unexplained weight loss, heat intolerance, cold intolerance NEUROLOGIC: Absent: headache, focal weakness or paresthesias, dizziness, unsteady gait, seizure, mental status changes, bladder or bowel incontinence PSYCHIATRIC: Absent: anxiety, depression, suicidal or homicidal ideation, hallucinations. Is the patient limited Colombian proficient: No *Physical Exam - Vital Signs Last Vital Signs Temp Pulse Resp BP Pulse Ox 98.2 F 66 20 101/60 98 02/13/17 17:26 02/13/17 17:26 02/13/17 17:26 02/13/17 17:26 02/13/17 17:26 - Physical Exam Comments: 02/13/17 18:02 GENERAL: [The patient is awake, alert, and fully oriented, in no acute distress. ] HEAD: [Normal with no signs of trauma.] EYES: [Pupils equal, round and reactive to light, extraocular movements intact, sclera anicteric, conjunctiva clear.] ABDOMEN: [Soft, non-tender, non-distended. (+) bowel sounds. No rebound tenderness or guarding.] EXTREMITIES: [Normal range of motion, no edema.] NEUROLOGICAL: [Normal speech, normal gait.] PSYCH: [Normal mood, normal affect.] SKIN: [Warm, Dry, normal turgor, no rashes or lesions noted.] ED Treatment Course - ADDITIONAL ORDERS Additional order review: Laboratory Results 02/13/17 18:14 Urine Color Ltyellow Urine Appearance Clear Urine pH 6.0 Urine Protein Negative Urine Glucose (UA) Negative Urine Ketones Negative Urine Blood Negative Urine Nitrite Negative Urine Bilirubin Negative Urine Urobilinogen Negative Urine RBC 1 Urine WBC 8 Ur Epithelial Cells Rare Hyaline Casts 6 Medical Decision Making - Medical Decision Making 02/13/17 18:55 Pt. is a 61 y/o female with downs, who presents to the ED for a positive urine culture. Pt. afebrile, VSS Pt. urine culture from PCP shows Proteus sp. [place] count: 10,000-30,000 Enterococcus sp. [place] count: >100,000; Nitrofuratonin Sensitive < 32 Will treat for the enterococcus UTI at this time. Pt. can be safely treated with macrobid. Will discharge home on macrobid and follow up with her PCP. *DC/Admit/Observation/Transfer Diagnosis at time of Disposition: UTI (urinary tract infection) Qualifiers: Urinary tract infection type: site unspecified Hematuria presence: without hematuria Qualified Code(s): N39.0 - Urinary tract infection, site not specified - Discharge Dispostion Disposition: HOME Condition at time of disposition: Good Admit: No - Prescriptions Prescriptions: Nitrofurantoin Monohyd/M-Cryst [Macrobid -] 100 mg PO BID #14 capsule - Referrals Referrals: Sofi Lopes [Primary Care Provider] - - Patient Instructions Printed Discharge Instructions: DI for Urinary Tract Infection (UTI) Additional Instructions: You were given macrobid for your UTI. Take all of the medication even if you feel better. Drink plenty of fluids. A repeat urine culture was taken today. Return to the ED if you have back pain, fevers ,chills, or any changes in your symptoms
[2017-02-13] MEDS ORDERED: NITROFURANTOIN MACROCRYSTAL 50 MG CAPSULE (FP) ONE (19:27)
[2017-02-13] MEDS ORDERED: NITROFURANTOIN MACROCRYSTAL 50 MG CAPSULE (FP) PO SCH (19:30)
== END 2017-02-13 19:46 | disposition home or self-care (01) ==
LOC: JERFT 17:22
DX: N39.0 Urinary tract infection, site not specified (principal); B96.89 Other specified bacterial agents as the cause of diseases classified elsewhere; Q90.9 Down syndrome, unspecified; F78 Other intellectual disabilities; F03.90 Unspecified dementia, unspecified severity, without behavioral disturbance, psychotic disturbance, mood disturbance, and anxiety; E03.9 Hypothyroidism, unspecified
CPT/HCPCS: 81003; 81015; 87086; 87186; 99281-25

== ENCOUNTER 2017-05-07 17:38 | Emergency (ER) | payer OTHER ==
--- NOTE | 2017-05-07 17:53 | PDOC ---
Rapid Medical Evaluation Time Seen by Provider: 05/07/17 17:52 Medical Evaluation: Allergies Allergy/AdvReac Type Severity Reaction Status Date / Time aspirin Allergy Unknown Verified 02/13/17 17:33 Sulfa (Sulfonamide Allergy Unknown Verified 02/13/17 17:33 Antibiotics) 05/07/17 17:54 62 year old female with a history of Down's Syndrome, dementia, osteoporosis, and hypothyroidism from [facility] here with a staff member for evaluation of cloudy urine and urinary frequency. Appears to staff to be in pain. Uses toilet during the day, pamper at night. V/s notable for SpO2 93% on RA. Grimaces when lower abdomen is palpated. UA/culture. To Main ED for further evaluation.
[2017-05-07 18:01] VITALS: BP 125/72; PULSE 61; TEMP 98; BMI 31.8
[2017-05-07 19:04] LABS: URINE APPEARANCE TURBID; URINE BILIRUBIN NEGATIVE (NEGATIVE); URINE BLOOD NEGATIVE (NEGATIVE); URINE COLOR YELLOW; URINE GLUCOSE (UA) NEGATIVE (NEGATIVE); URINE KETONE NEGATIVE (NEGATIVE); URINE NITRITE NEGATIVE (NEGATIVE); URINE PROTEIN NEGATIVE (NEGATIVE); URINE UROBILINOGEN NEGATIVE mg/dL (0.2-1.0)
[2017-05-07 19:49] LABS: URINE LEUK ESTERASE 3+ (NEGATIVE)
--- NOTE | 2017-05-07 21:17 | PDOC ---
History of Present Illness - General Chief Complaint: Urinary Problem Stated Complaint: URINARY PROBLEM Time Seen by Provider: 05/07/17 17:52 History Source: Care Provider Exam Limitations: Dementia - History of Present Illness Initial Comments: 05/07/17 20:58 History from record and home health care social worker. Pt is a 62 y/o F w/ PMH Down's, Dementia, UTI w/ recent hospital admission, possible atonic seizure with loss of bladder control who was brought to ED from [facility] after nurses noticed urinary frequency and cloudy urine. When asked if she has pain, pt points to her abdomen. Per health care recruiter, pt's last BM was yest. No fever. Pt is eating normally. Per record, on a previous admission, there was suspicion of atonic seizure with incontinence. She has also had concern for UTI in the past. Past History - Past Medical History Allergies/Adverse Reactions: Allergies Allergy/AdvReac Type Severity Reaction Status Date / Time aspirin Allergy Unknown Verified 05/07/17 17:57 Sulfa (Sulfonamide Allergy Unknown Verified 05/07/17 17:57 Antibiotics) Home Medications: Ambulatory Orders Calcium Carbonate/Vitamin D3 [Calcium 600-Vit D3 200 Tablet] 1 each PO BID 08/08 Cholecalciferol (Vitamin D3) [Vitamin D3 -] 2,000 unit PO DAILY 08/08/16 Docusate Sodium [Colace -] 100 mg PO BID 08/08/16 Levothyroxine [Synthroid -] 100 mcg PO DAILY 08/08/16 Multivitamin [Poly-Vitamin] 1 each PO DAILY 08/08/16 Divalproex Sprinkle [Depakote Sprinkle -] 125 mg PO HS #30 cap.sprink 01/06/17 Fluoxetine HCl [Prozac -] 20 mg PO DAILY #11 tab 01/06/17 Haloperidol [Haldol -] 1 mg PO DAILY 02/13/17 Nitrofurantoin Monohyd/M-Cryst [Macrobid -] 100 mg PO BID #14 capsule 02/13/17 Nitrofurantoin Monohyd/M-Cryst [Macrobid -] 100 mg PO BID #14 capsule 05/07/17 Cardiac Disorders: Yes (VALVE DEFECT) COPD: No Dementia: Yes Thyroid Disease: Yes (HYPO) - Immunization History Immunization Up to Date: Yes - Suicide/Smoking/Psychosocial Hx Smoking Status: No Smoking History: Never smoked Have you smoked in the past 12 months: No Number of Cigarettes Smoked Daily: 0 Hx Alcohol Use: No Drug/Substance Use Hx: No Substance Use Type: None Review of Systems - Review of Systems Able to Perform ROS?: No Is the patient limited Surinamese proficient: Yes *Physical Exam - Vital Signs Last Vital Signs Temp Pulse Resp BP Pulse Ox 98 F 61 15 125/72 95 05/07/17 17:58 05/07/17 17:58 05/07/17 17:58 05/07/17 17:58 05/07/17 17:58 ED Treatment Course - LABORATORY CBC & Chemistry Diagram: 05/07/17 22:27 05/07/17 22:27 - ADDITIONAL ORDERS Additional order review: Laboratory Results 05/07/17 18:28 Urine Color Yellow Urine Appearance Turbid Urine pH 8.0 D Ur Specific [place] 1.011 Urine Protein Negative Urine Glucose (UA) Negative Urine Ketones Negative Urine Blood Negative Urine Nitrite Negative Urine Bilirubin Negative Urine Urobilinogen Negative Medical Decision Making - Medical Decision Making 05/07/17 22:28 Pt is a 62 y/o F with PMH down's syndrome, dementia, osteoporosis, hypothyroid, and cardiac valvular defect who was sent to ED from [facility] for cloudy urine and urinary frequency. #UTI -UA pos for 298 WBC -when asked about pain, pt points to suprapubic region -frequency -Macrobid PO BID x 1 week *DC/Admit/Observation/Transfer Diagnosis at time of Disposition: UTI (urinary tract infection) Qualifiers: Urinary tract infection type: site unspecified Hematuria presence: without hematuria Qualified Code(s): N39.0 - Urinary tract infection, site not specified - Discharge Dispostion Disposition: RESIDENTIAL FACILITY Condition at time of disposition: Stable Admit: No - Prescriptions Prescriptions: Nitrofurantoin Monohyd/M-Cryst [Macrobid -] 100 mg PO BID #14 capsule - Referrals Referrals: Monserrat Julio [Primary Care Provider] - - Patient Instructions Printed Discharge Instructions: DI for Urinary Tract Infection (UTI) Additional Instructions: Please take all of your prescription medications as directed. Please follow up with your primary doctor. If your symptoms get worse or if you develop new symptoms, please return to the emergency department. - Post Discharge Activity
[2017-05-07 21:32] LABS: URINE RBC 8 /hpf (0-3); URINE WBC 298 /hpf (3-5)
--- NOTE | 2017-05-07 22:27 | PDOC ---
Attending Attestation - Resident Resident Name: JoseEnrique - ED Attending Attestation I have performed the following: I have examined & evaluated the patient, The case was reviewed & discussed with the resident, I agree w/resident's findings & plan, Exceptions are as noted - HPI HPI: 05/07/17 22:25 62 yo female coming from [facility] with aide because she has abdominal pain - Physicial Exam PE: 05/07/17 22:45 nonverbal 62 yo female from [facility] for abdominal pain head ncat neck supple lungs cta b/l cvs [id number] extremities no deformity abd no guarding ,no rebound neuro alert ,moving extremitties,nonverbal ,h/o Down syndrome - Medical Decision Making 05/07/17 22:48 UA 298,000 wbc, placed on antibiotics and "RX sent to [facility] pharmacy
[2017-05-07 22:33] LABS: BASO % 0.8 % (0-2.0); EOS % 0.1 % (0-4.5); MCH 34.2 pg (25.7-33.7); MCHC 33.7 g/dl (32.0-36.0); MEAN CELL VOLUME 101.5 fl (80-96); MEAN PLT VOLUME 8.4 fl (7.5-11.1); NEUT % 76.3 % (42.8-82.8); PLATELET COUNT 264 K/MM3 (134-434); RDW 13.8 % (11.6-15.6); WHITE BLOOD COUNT 7.6 K/mm3 (4.0-10.0)
--- NOTE | 2017-05-07 22:49 | PDOC ---
*Physical Exam - Vital Signs Last Vital Signs Temp Pulse Resp BP Pulse Ox 98 F 61 15 125/72 95 05/07/17 17:58 05/07/17 17:58 05/07/17 17:58 05/07/17 17:58 05/07/17 17:58 ED Treatment Course - LABORATORY CBC & Chemistry Diagram: 05/07/17 22:27 05/07/17 22:27 - ADDITIONAL ORDERS Additional order review: Laboratory Results 05/07/17 18:28 Urine Color Yellow Urine Appearance Turbid Urine pH 8.0 D Ur Specific [place] 1.011 Urine Protein Negative Urine Glucose (UA) Negative Urine Ketones Negative Urine Blood Negative Urine Nitrite Negative Urine Bilirubin Negative Urine Urobilinogen Negative Urine WBC (Auto) 298 Urine RBC (Auto) 8 Ur Epithelial Cells Rare 05/07/17 22:27 RBC 3.88 MCV 101.5 H MCHC 33.7 RDW 13.8 MPV 8.4 Neutrophils % 76.3 Lymphocytes % 12.2 D Monocytes % 10.6 H Eosinophils % 0.1 Basophils % 0.8 *DC/Admit/Observation/Transfer Diagnosis at time of Disposition: UTI (urinary tract infection) Qualifiers: Urinary tract infection type: site unspecified Hematuria presence: without hematuria Qualified Code(s): N39.0 - Urinary tract infection, site not specified - Discharge Dispostion Disposition: HOME Condition at time of disposition: Stable - Prescriptions Prescriptions: Nitrofurantoin Monohyd/M-Cryst [Macrobid -] 100 mg PO BID #14 capsule - Referrals Referrals: Monserrat Julio [Primary Care Provider] - - Patient Instructions Printed Discharge Instructions: DI for Urinary Tract Infection (UTI) Additional Instructions: Please take all of your prescription medications as directed. Please follow up with your primary doctor. If your symptoms get worse or if you develop new symptoms, please return to the emergency department. - Post Discharge Activity
[2017-05-07 22:52] LABS: URINE LEUK ESTERASE 3+ (NEGATIVE)
[2017-05-07] MEDS ORDERED: NITROFURANTOIN MACROCRYSTAL 50 MG CAPSULE (FP) PO STA (22:58)
[2017-05-07] MEDS ORDERED: NITROFURANTOIN MACROCRYSTAL 50 MG CAPSULE (FP) ONE (23:01)
[2017-05-07 23:09] LABS: ALBUMIN 2.7 g/dl (3.4-5.0); ANION GAP 10 (8-16); BILIRUBIN,TOTAL 0.4 mg/dL (0.2-1.0); CALCIUM 8.9 mg/dL (8.5-10.1); CO2 32 mmol/L (21-32); CREATININE 0.7 mg/dL (0.55-1.02); GLUCOSE,RANDOM 116 mg/dL (74-106); SGOT/AST 18 U/L (15-37); SGPT/ALT 18 U/L (12-78); TOT PROT 6.6 g/dl (6.4-8.2)
[2017-05-07 23:10] LABS: ALK PHOS 68 U/L (45-117)
== END 2017-05-07 23:06 | disposition home or self-care (01) ==
LOC: JER 17:38
DX: N39.0 Urinary tract infection, site not specified (principal); Q90.9 Down syndrome, unspecified; F03.90 Unspecified dementia, unspecified severity, without behavioral disturbance, psychotic disturbance, mood disturbance, and anxiety; E03.9 Hypothyroidism, unspecified
CPT/HCPCS: 36415; 80053; 81003; 81015; 85025; 87086; 87186; 99282-25

== ENCOUNTER 2017-05-14 14:54 | Emergency (ER) | payer OTHER ==
[2017-05-14 15:01] VITALS: BP 105/79; PULSE 75; TEMP 98.2; BMI 26.7
--- NOTE | 2017-05-14 15:01 | PDOC ---
Rapid Medical Evaluation Chief Complaint: Pain Time Seen by Provider: 05/14/17 14:59 Medical Evaluation: Allergies Allergy/AdvReac Type Severity Reaction Status Date / Time aspirin Allergy Unknown Verified 05/14/17 14:56 Sulfa (Sulfonamide Allergy Unknown Verified 05/14/17 14:56 Antibiotics) 05/14/17 14:59 Pt presents to the ED: left wrsit swelling and redness since 3 hrs, denies injury Pt on brief exam: red, swollen and tender dorsal aspect of wrist, vss Pt ordered for: left wrist xray Pt to proceed to the Emergency Dept Discharge Disposition - Diagnosis Wrist pain - Referrals - Patient Instructions - Post Discharge Activity
[2017-05-14] MEDS ORDERED: ACETAMINOPHEN 500 MG TABLET (FP) PO ONE (15:41)
--- NOTE | 2017-05-14 15:42 | PDOC ---
History of Present Illness - General Chief Complaint: Pain Stated Complaint: SWOLLEN ARM Time Seen by Provider: 05/14/17 14:59 History Source: Patient, Care Provider Exam Limitations: No Limitations - History of Present Illness Initial Comments: 05/14/17 15:50 Patient sent from correction here with aide who is well-known to her with complaints of left wrist pain and swelling. Has severe MR, and primarily nonverbal however is appropriate with responses and will demonstrate pain. Injury to left wrist Is unknown, has had no witnessed fall or known trauma. Patient is not wheelchair-bound and will ambulate by self however is becoming more unsteady with her dementia. Staff noted swelling and mild immobility this morning. Now has some mild heat to her joint, and swelling with inability to flex and extend without reproduce tenderness. Is moving fingers and sensation appears to be intact. No elbow pain or swelling proximal to wrist joint Occurred: reports: yesterday Pain Location: reports: upper extremity (left wrist) Associated Symptoms (Fall): denies symptoms Past History - Travel Traveled outside of the country in the last 30 days: No Close contact w/someone who was outside of country & ill: No - Past Medical History Allergies/Adverse Reactions: Allergies Allergy/AdvReac Type Severity Reaction Status Date / Time aspirin Allergy Unknown Verified 05/14/17 14:56 Sulfa (Sulfonamide Allergy Unknown Verified 05/14/17 14:56 Antibiotics) Home Medications: Ambulatory Orders Calcium Carbonate/Vitamin D3 [Calcium 600-Vit D3 200 Tablet] 1 each PO BID 08/08 Cholecalciferol (Vitamin D3) [Vitamin D3 -] 2,000 unit PO DAILY 08/08/16 Docusate Sodium [Colace -] 100 mg PO BID 08/08/16 Levothyroxine [Synthroid -] 100 mcg PO DAILY 08/08/16 Multivitamin [Poly-Vitamin] 1 each PO DAILY 08/08/16 Divalproex Sprinkle [Depakote Sprinkle -] 125 mg PO HS #30 cap.sprink 01/06/17 Fluoxetine HCl [Prozac -] 20 mg PO DAILY #11 tab 01/06/17 Haloperidol [Haldol -] 1 mg PO DAILY 02/13/17 Cardiac Disorders: Yes (VALVE DEFECT) COPD: No Dementia: Yes Thyroid Disease: Yes (HYPO) - Immunization History Immunization Up to Date: Yes - Suicide/Smoking/Psychosocial Hx Smoking Status: No Smoking History: Never smoked Have you smoked in the past 12 months: No Number of Cigarettes Smoked Daily: 0 Information on smoking cessation initiated: No Hx Alcohol Use: No Drug/Substance Use Hx: No Substance Use Type: None Review of Systems - Review of Systems Able to Perform ROS?: Yes Is the patient limited Portuguese proficient: Yes Constitutional: Yes: See HPI. No: Symptoms Reported, Fever, Malaise HEENTM: No: Symptoms Reported Musculoskeletal: Yes: Symptoms Reported, Joint Pain, Joint Swelling Integumentary: Yes: Symptoms Reported, See HPI, Erythema Neurological: Yes: See HPI. No: Symptoms reported, Numbness, Paresthesia All Other Systems: Reviewed and Negative *Physical Exam - Vital Signs Last Vital Signs Temp Pulse Resp BP Pulse Ox 98.2 F 75 18 105/79 100 05/14/17 14:58 05/14/17 14:58 05/14/17 14:58 05/14/17 14:58 05/14/17 14:58 - Physical Exam General Appearance: Yes: Nourished, Appropriately Dressed, Apparent Distress, Mild Distress HEENT: positive: NILO, Normal ENT Inspection, TMs Normal, Pharynx Normal Neck: positive: Supple. negative: Tender Gastrointestinal/Abdominal: positive: Soft Musculoskeletal: positive: Decreased Range of Motion. negative: Normal Inspection, CVA Tenderness (R) Extremity: negative: Normal Inspection, Normal Range of Motion (pain and swelling at wrist joint, reproduce tenderness with palpation to distal radius and ulna) Integumentary: positive: Erythema Neurologic: positive: vessel scrapper helper II-XII NML intact, Fully Oriented Medical Decision Making - Medical Decision Making 05/14/17 17:09 X-ray reveals a small cortical avulsion fracture at the base of the first metacarpal left hand. Splint was applied, and follow-up appointment recommended with orthopedist this week. *DC/Admit/Observation/Transfer Diagnosis at time of Disposition: Wrist pain Qualifiers: Laterality: left Qualified Code(s): M25.532 - Pain in left wrist - Discharge Dispostion Disposition: HOME Condition at time of disposition: Stable Admit: No - Referrals Referrals: Edwin Hicks MD [Staff Physician] - - Patient Instructions Printed Discharge Instructions: DI for Wrist Sprain Additional Instructions: Rest, ice to area on and off for 15 minutes 4-6 times a day Avoid heavy lifting or exercise until pain and swelling is resolved or until further directed Keep area highly elevated to reduce swelling Use splints/Buzz wrap as directed - leave wrist splint on until evaluated by orthopedist, may remove for showering and bathing Followup with orthopedist in one to 2 days if not improving, if significantly improved may wait one week for followup with orthopedist May use Tylenol -325 mg tablets every 4 hours as needed for pain - Post Discharge Activity Forms/Work/School Notes: Back to School
[2017-05-14] MEDS ORDERED: ACETAMINOPHEN 325 MG TABLET (FP) ONE (15:44)
== END 2017-05-14 17:17 | disposition home or self-care (01) ==
LOC: JERFT 14:54
DX: M25.532 Pain in left wrist (principal); E03.9 Hypothyroidism, unspecified; F03.90 Unspecified dementia, unspecified severity, without behavioral disturbance, psychotic disturbance, mood disturbance, and anxiety; F72 Severe intellectual disabilities
CPT/HCPCS: 73110-TC-LT; 99281-25

== ENCOUNTER 2017-05-17 14:13 | Emergency (ER) | payer OTHER ==
[2017-05-17 14:50] VITALS: BP 106/68; PULSE 60; BMI 20.9
--- NOTE | 2017-05-17 14:55 | PDOC ---
Rapid Medical Evaluation Chief Complaint: Injury Time Seen by Provider: 05/17/17 14:49 Medical Evaluation: Allergies Allergy/AdvReac Type Severity Reaction Status Date / Time aspirin Allergy Unknown Verified 05/14/17 14:56 Sulfa (Sulfonamide Allergy Unknown Verified 05/14/17 14:56 Antibiotics) 05/17/17 14:49 I have performed a brief in-person evaluation of this patient. The patient presents with a chief complaint of: Mechanical Fall, was walking with a staff, legs gave out and she fell onto the buttock. No Head injury. Ambulatory after incident. Is verbal, H/O Down Syndrome, dementia, osteoporosis. Pertinent physical exam findings: Point tenderness to the lower lumbar, nonspecific, patient only able to say yes and winced on exam. I have ordered the following: Lower lumbar and sacral, pelvic xray. Received with wrist splint, sprain diagnosed at beginning of week. The patient will proceed to the ED for further evaluation.
--- NOTE | 2017-05-17 15:50 | PDOC ---
History of Present Illness - General Chief Complaint: Injury Stated Complaint: FALL Time Seen by Provider: 05/17/17 14:49 History Source: Care Provider Exam Limitations: No Limitations, Clinical Condition (dementia ) - History of Present Illness Initial Comments: 05/17/17 15:43 62 yr female with dementia brought in to the ER by aide from [facility]-term for witnessed fall. pt fell backwards on her buttocks after she lost her balance and fell. no head trauma pt has ambulated since the fall with assistance. Occurred: reports: this morning Severity: reports: mild Method of Injury: Yes: fall Past History - Past Medical History Allergies/Adverse Reactions: Allergies Allergy/AdvReac Type Severity Reaction Status Date / Time aspirin Allergy Unknown Verified 05/14/17 14:56 Sulfa (Sulfonamide Allergy Unknown Verified 05/14/17 14:56 Antibiotics) Home Medications: Ambulatory Orders Calcium Carbonate/Vitamin D3 [Calcium 600-Vit D3 200 Tablet] 1 each PO BID 08/08 Cholecalciferol (Vitamin D3) [Vitamin D3 -] 2,000 unit PO DAILY 08/08/16 Docusate Sodium [Colace -] 100 mg PO BID 08/08/16 Levothyroxine [Synthroid -] 100 mcg PO DAILY 08/08/16 Multivitamin [Poly-Vitamin] 1 each PO DAILY 08/08/16 Divalproex Sprinkle [Depakote Sprinkle -] 125 mg PO HS #30 cap.sprink 01/06/17 Fluoxetine HCl [Prozac -] 20 mg PO DAILY #11 tab 01/06/17 Haloperidol [Haldol -] 1 mg PO DAILY 02/13/17 Cardiac Disorders: Yes (VALVE DEFECT) COPD: No Dementia: Yes Thyroid Disease: Yes (HYPO) - Immunization History Immunization Up to Date: Yes - Suicide/Smoking/Psychosocial Hx Smoking Status: No Smoking History: Never smoked Have you smoked in the past 12 months: No Number of Cigarettes Smoked Daily: 0 Hx Alcohol Use: No Drug/Substance Use Hx: No Substance Use Type: None Trauma Specific PMHX - Complaint Specific PMHX Arthritis: No Back Injury: No Neck Injury: No Hx Sacro Iliac Joint Dysfunction: No Review of Systems - Review of Systems Able to Perform ROS?: Yes Comments:: 05/17/17 18:02 ambulates with cane at baseline Is the patient limited Irish proficient: No Constitutional: No: Symptoms Reported HEENTM: No: Symptoms Reported Respiratory: No: Symptoms reported Cardiac (ROS): No: Symptoms Reported ABD/GI: No: Symptoms Reported : No: Symptoms Reported Musculoskeletal: Yes: Symptoms Reported *Physical Exam - Vital Signs Last Vital Signs Temp Pulse Resp BP Pulse Ox 60 18 106/68 99 05/17/17 14:48 05/17/17 14:48 05/17/17 14:48 05/17/17 14:48 - Physical Exam General Appearance: Yes: Nourished, Appropriately Dressed HEENT: positive: EOMI, NILO, Normal ENT Inspection, TMs Normal, Pharynx Normal Neck: positive: Supple. negative: Tender Respiratory/Chest: positive: Lungs Clear, Normal Breath Sounds Cardiovascular: positive: Regular Rhythm, Regular Rate Gastrointestinal/Abdominal: positive: Normal Bowel Sounds, Soft Lymphatic: negative: Adenopathy Musculoskeletal: positive: Normal Inspection, Other (moving all extremities x4 ) . negative: Decreased Range of Motion, Vertebral Tenderness Extremity: positive: Normal Capillary Refill, Normal Inspection, Normal Range of Motion Integumentary: positive: Normal Color, Dry, Warm Neurologic: positive: Fully Oriented, Alert, Normal Mood/Affect, Normal Response , Motor Strength 5/5 Medical Decision Making - Medical Decision Making 05/17/17 15:48 cc: mechanical fall landed on buttocks, no head trauma witnessed by staff. no sign of trauma on exam no bruising or deformity, no SOB xrays ordered from [facility] 05/17/17 17:58 xrays are negative, pt is showing no signs of distress, acting at baseline states attendant who works with her often, *DC/Admit/Observation/Transfer Diagnosis at time of Disposition: Contusion Qualifiers: Encounter type: initial encounter Contusion area: lower back Qualified Code(s) : S30.0XXA - Contusion of lower back and pelvis, initial encounter - Discharge Dispostion Disposition: HOME Condition at time of disposition: Good - Referrals Referrals: STAFF,NOT ON [Primary Care Provider] - - Patient Instructions Additional Instructions: give tylenol 650mg every 4-6hrs as needed for pain follow with primary care doctor on Saturday if any worsening pain Please return to ER for any concerns or if pt has other complaints. - Post Discharge Activity
== END 2017-05-17 16:26 | disposition home or self-care (01) ==
LOC: JERFT 14:13
DX: S30.0XXA Contusion of lower back and pelvis, initial encounter (principal); W18.39XA Other fall on same level, initial encounter; Y93.89 Activity, other specified; Y92.89 Other specified places as the place of occurrence of the external cause; F03.90 Unspecified dementia, unspecified severity, without behavioral disturbance, psychotic disturbance, mood disturbance, and anxiety; E03.9 Hypothyroidism, unspecified
CPT/HCPCS: 72100-TC; 73523-TC; 99281-25

== ENCOUNTER 2017-05-29 13:53 | Emergency (ER) | payer OTHER ==
[2017-05-29 14:04] VITALS: PULSE 84; TEMP 98.3; BMI 24.6
[2017-05-29] MEDS ORDERED: SODIUM CHLORIDE 0.9% 1000 ML INFUS.BAG IV ONE (15:25)
--- NOTE | 2017-05-29 15:29 | PDOC ---
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 Pt is a 62 y/o F w/ PMH Down's, Dementia, who was brought to ED from [facility] after nurses noticed "pink dry area " on diaper when changing. Patient was seen in the ER on 05/07 diagnosed with UTI was started on Macrobid. Chart reviewed, macrobid resistant. Currently afebrile, VSS, does not appear to be in any pain. Per career orientation teacher, pt's last BM was yest Recently not eating well and placed on a pureed diet. Per record, on a previous admission, there was suspicion of atonic seizure with incontinence. She has also had concern for UTI in the past. Past History - Past Medical History Allergies/Adverse Reactions: Allergies Allergy/AdvReac Type Severity Reaction Status Date / Time aspirin Allergy Unknown Verified 05/29/17 14:04 Sulfa (Sulfonamide Allergy Unknown Verified 05/29/17 14:04 Antibiotics) Home Medications: Ambulatory Orders Calcium Carbonate/Vitamin D3 [Calcium 600-Vit D3 200 Tablet] 1 each PO BID 08/08 Cholecalciferol (Vitamin D3) [Vitamin D3 -] 2,000 unit PO DAILY 08/08/16 Docusate Sodium [Colace -] 100 mg PO BID 08/08/16 Levothyroxine [Synthroid -] 100 mcg PO DAILY 08/08/16 Multivitamin [Poly-Vitamin] 1 each PO DAILY 08/08/16 Divalproex Sprinkle [Depakote Sprinkle -] 125 mg PO HS #30 cap.sprink 01/06/17 Fluoxetine HCl [Prozac -] 20 mg PO DAILY #11 tab 01/06/17 Haloperidol [Haldol -] 1 mg PO DAILY 02/13/17 Levofloxacin [Levaquin] 750 mg PO DAILY #7 tablet 05/29/17 Cardiac Disorders: Yes (VALVE DEFECT) COPD: No Dementia: Yes (AND JESUS, MR) Thyroid Disease: Yes (HYPO) Other medical history: OSTEOPOROSIS - Immunization History Immunization Up to Date: Yes - Suicide/Smoking/Psychosocial Hx Smoking Status: No Smoking History: Never smoked Have you smoked in the past 12 months: No Number of Cigarettes Smoked Daily: 0 Hx Alcohol Use: No Drug/Substance Use Hx: No Substance Use Type: None Review of Systems - Review of Systems Constitutional: No: Fever, Night Sweats HEENTM: No: Symptoms Reported Respiratory: No: Symptoms reported, Cough Cardiac (ROS): No: Irregular Heart Rate ABD/GI: Yes: Difficulty Swallowing, Poor Appetite. No: Constipated, Diarrhea, Poor Fluid Intake, Vomiting, Tarry Stools : No: Discharge, Hematuria Musculoskeletal: No: Joint Swelling Integumentary: No: Symptoms Reported Hematologic/Lymphatic: No: Symptoms Reported *Physical Exam - Vital Signs Last Vital Signs Temp Pulse Resp BP Pulse Ox 98.3 F 84 20 95/64 05/29/17 13:57 05/29/17 13:57 05/29/17 13:57 05/29/17 13:57 - Physical Exam General Appearance: No: Mild Distress HEENT: positive: NILO, TMs Normal Neck: positive: Trachea midline Respiratory/Chest: positive: Lungs Clear, Normal Breath Sounds. negative: Respiratory Distress, Accessory Muscle Use Cardiovascular: positive: Regular Rhythm, Regular Rate Gastrointestinal/Abdominal: positive: Normal Bowel Sounds, Tender (no reaction on palpation. ), Soft. negative: Guarding, Rebound, Hepatomegaly, Spleenomegaly Lymphatic: negative: Adenopathy Integumentary: positive: Normal Color, Dry Neurologic: positive: Alert, Normal Mood/Affect, Normal Response, Motor Strength 5/5 Medical Decision Making - Medical Decision Making 05/29/17 15:39 A/P: Patient here for evaluation of pink dry smear to diaper patient was recently diagnosed urinary tract infection however specimen noted with proteas mirabalis, resistant to macrobid. Patient's vital signs are stable, she is afebrile and heart rate is normal. Patient with no evidence of sepsis. I will give patient small fluid bolus of 500 mL of normal saline, Levaquin 500 mg IV which is susceptible to last specimen. 05/29/17 16:26 Awaiting miscroscopic + 3 leuks, will dc on levaquin 750 mg PO x 5 days. Instructions for follow up given to staff. *DC/Admit/Observation/Transfer Diagnosis at time of Disposition: UTI (urinary tract infection) Qualifiers: Urinary tract infection type: site unspecified Hematuria presence: with hematuria Qualified Code(s): N39.0 - Urinary tract infection, site not specified - Discharge Dispostion Disposition: [facility] Condition at time of disposition: Stable Admit: No - Prescriptions Prescriptions: Levofloxacin [Levaquin] 750 mg PO DAILY #7 tablet - Referrals Referrals: Zachary Vuong MD [Staff Physician] - - Patient Instructions Printed Discharge Instructions: Urinary Tract Infection Additional Instructions: Proper hygiene Frequent diaper change Monitor temperature and vitals for signs of infection/sepsis Antibiotics as ordered . Increase fluids Follow up with urology. - Post Discharge Activity
[2017-05-29] MEDS ORDERED: LEVOFLOXACIN 500 MG IVPB 500 MG/100 ML BAG IVPB ONE ×2 (15:35)
[2017-05-29 15:41] LABS: URINE APPEARANCE CLOUDY; URINE BILIRUBIN NEGATIVE (NEGATIVE); URINE BLOOD NEGATIVE (NEGATIVE); URINE COLOR YELLOW; URINE GLUCOSE (UA) NEGATIVE (NEGATIVE); URINE KETONE NEGATIVE (NEGATIVE); URINE NITRITE NEGATIVE (NEGATIVE); URINE PROTEIN NEGATIVE (NEGATIVE); URINE UROBILINOGEN NEGATIVE mg/dL (0.2-1.0)
[2017-05-29 16:17] LABS: URINE LEUK ESTERASE 3+ (NEGATIVE)
[2017-05-29 17:04] VITALS: BP 108/61
[2017-05-29 17:05] LABS: URINE HYALINE CAST 3 /lpf
== END 2017-05-29 17:04 ==
LOC: JER 13:53
PROC: 3E03329 Introduction of Other Anti-infective into Peripheral Vein, Percutaneous Approach (ICD-10-PCS; principal; 2017-05-29)
PROC: 3E0337Z Introduction of Electrolytic and Water Balance Substance into Peripheral Vein, Percutaneous Approach (ICD-10-PCS; 2017-05-29)
DX: N39.0 Urinary tract infection, site not specified (principal); E03.9 Hypothyroidism, unspecified
CPT/HCPCS: 81003; 81015; 87086; 87186; 99282-25

== ENCOUNTER 2017-06-04 20:13 | Emergency (ER) | payer OTHER ==
[2017-06-04] MEDS ORDERED: SODIUM CHLORIDE 0.9% 1000 ML INFUS.BAG IV PRN (21:41)
[2017-06-04 22:01] VITALS: TEMP 98.7
[2017-06-04 22:02] VITALS: BP 107/46; PULSE 77; BMI 23.0
--- NOTE | 2017-06-04 22:14 | PDOC ---
History of Present Illness - General Chief Complaint: SIRS, Suspected/Possible Stated Complaint: WEAKNESS Time Seen by Provider: 06/04/17 21:40 - History of Present Illness Initial Comments: 06/04/17 22:00 CHIEF COMPLAINT: AMS HISTORY OF PRESENT ILLNESS: 62 yo F with PMH of Down's syndrome, dementia, osteopenia, presents to ED from [facility] with altered mental status. Patient is confused and nonverbal, unable to interview or follow directions today. Per aide and CARLENE Sánchez of facility, patient has had gradual decline in mental status for the past 3-4 months but sudden drastic decline since April, worsening day to day this week. Patient had a dementia screening in March which showed significant decline "since the last screening," but "even since then she is completely different." Patient is no longer verbal, which was her baseline up until the last few weeks and now is not very responsive. She is no longer eating and is wheelchair bound; she "used to be able to walk but now even when you try to get her to talk you can see she doesn't have the strength to even try." Due to her inability to walk she can not stay in her current room at the facility on the second floor, so the facility has placed her in a bed in the living room on the first floor. She is at risk for aspiration due to her weakness, per RN, "even trying to get her to swallow when she eats is difficult." She is currently being treated for a UTI diagnosed 03/06, and "has a few doses of Levaquin left." She is followed by PCP Dr. Lopes at [facility] as well as neuro and psych. Per RN, psychiatry has given her a short prognosis and that "she doesn't have much longer to live." CARLENE Zaragoza states they would to get to get hospice on board as her current living situation is "not appropriate for what her needs are." Patient does not have DNR/DNI at this time but PCP is "trying to facilitate all of this to get it as quickly as possible." Patient has a cousin in [place] who is aware of the situation. PAST MEDICAL HISTORY: as per HPI FAMILY HISTORY: Denies SOCIAL HISTORY: Denies tobacco, alcohol, illicit drug use. SURGICAL HISTORY: Denies ALLERGIES: aspirin, sulfa REVIEW OF SYSTEMS - patient with AMS, ROS is per RN and aide General/Constitutional: "She hasn't really had a high temperature but today it was 99F which is higher than usual." Significant increased weakness. HEENT: Denies change in vision. Denies ear pain or discharge. Denies sore throat. Cardiovascular: Denies chest pain or shortness of breath. Respiratory: Denies cough, wheezing, or hemoptysis. Gastrointestinal: Anorexia this week. Denies nausea, vomiting, diarrhea. Denies rectal bleeding. Genitourinary: Currently being treated for UTI. Musculoskeletal: Intermittent swelling to b/l feet and hands. Skin: Denies rash or easy bruising. Neurologic: "Day to day significant AMS." Denies headache, vertigo, loss of consciousness, or loss of sensation. PHYSICAL EXAM General Appearance: Well-appearing, appropriately dressed. No apparent distress. HEENT: EOMI, PERRLA, normal ENT inspection, normal voice, TMs normal, pharynx normal. No conjunctival pallor. No photophobia, scleral icterus. Neck: Supple. Trachea midline. No tenderness, rigidity, carotid bruit, stridor , lymphadenopathy, or thyromegaly. Respiratory/Chest: Lungs CTAB. Cardiovascular: RRR. S1, S2. No JVD, murmur, bradycardia, tachycardia. Vascular Pulses: Dorsalis-Pedis (R): 2+, Dorsalis-Pedis (L): 2+ Gastrointestinal/Abdominal: Normal bowel sounds. Abdomen soft, non-distended. No tenderness or rebound tenderness. No organomegaly, pulsatile mass, guarding , hernia, hepatomegaly, splenomegaly. Musculoskeletal/Extremities: Minimal nonpitting edema to b/l feet and hands. Normal inspection. FROM of all extremities, normal capillary refill. Pelvis Stable. No CVA tenderness. No tenderness to extremities, pedal edema, swelling , erythema or deformity. Integumentary: Appropriate color, dry, warm. No cyanosis, erythema, jaundice or rash Neurologic: Unable to complete exam as patient is nonverbal and unable to follow directions. Patient is A&O x 0 at this time. Past History - Past Medical History Allergies/Adverse Reactions: Allergies Allergy/AdvReac Type Severity Reaction Status Date / Time aspirin Allergy Unknown Verified 06/04/17 20:21 Sulfa (Sulfonamide Allergy Unknown Verified 06/04/17 20:21 Antibiotics) Home Medications: Ambulatory Orders Calcium Carbonate/Vitamin D3 [Calcium 600-Vit D3 200 Tablet] 1 each PO BID 08/08 Cholecalciferol (Vitamin D3) [Vitamin D3 -] 2,000 unit PO DAILY 08/08/16 Docusate Sodium [Colace -] 100 mg PO BID 08/08/16 Levothyroxine [Synthroid -] 100 mcg PO DAILY 08/08/16 Multivitamin [Poly-Vitamin] 1 each PO DAILY 08/08/16 Divalproex Sprinkle [Depakote Sprinkle -] 125 mg PO HS #30 cap.sprink 01/06/17 Fluoxetine HCl [Prozac -] 20 mg PO DAILY #11 tab 01/06/17 Haloperidol [Haldol -] 1 mg PO DAILY 02/13/17 Levofloxacin [Levaquin] 750 mg PO DAILY #7 tablet 05/29/17 Cardiac Disorders: Yes (VALVE DEFECT) COPD: No Dementia: Yes (AND JESUS, MR) Thyroid Disease: Yes (HYPO) - Immunization History Immunization Up to Date: Yes - Suicide/Smoking/Psychosocial Hx Smoking Status: No Smoking History: Never smoked Have you smoked in the past 12 months: No Number of Cigarettes Smoked Daily: 0 Hx Alcohol Use: No Drug/Substance Use Hx: No Substance Use Type: None ED Treatment Course - LABORATORY CBC & Chemistry Diagram: 06/04/17 22:20 06/04/17 22:20 - RADIOLOGY Radiology Studies Ordered: Category Date Time Status CHEST X-RAY PORTABLE* [RAD] Stat Radiology 06/04/17 21:41 Ordered *DC/Admit/Observation/Transfer Diagnosis at time of Disposition: Dementia Qualifiers: Dementia type: unspecified type Dementia behavioral disturbance: without behavioral disturbance Qualified Code(s): F03.90 - Unspecified dementia without behavioral disturbance - Discharge Dispostion Disposition: HOME Condition at time of disposition: Stable Admit: No - Referrals - Patient Instructions Printed Discharge Instructions: Dementia Additional Instructions: Ms. Jessica's workup and imaging today were all negative. Her altered mental status is likely only secondary to worsening dementia. Please continue to follow up with PCP for hospice orders and end-of-life care. If she develops any new or worsening symptoms, please return her to the ER. - Post Discharge Activity
[2017-06-04 22:32] LABS: BASO % 1.2 % (0-2.0); EOS % 0.2 % (0-4.5); HEMATOCRIT 38.4 % (32.4-45.2); HEMOGLOBIN 12.7 GM/dL (10.7-15.3); LYMPH % 17.2 % (8-40); MCH 33.5 pg (25.7-33.7); MCHC 33.2 g/dl (32.0-36.0); MEAN CELL VOLUME 101.1 fl (80-96); MEAN PLT VOLUME 8.1 fl (7.5-11.1); MONO % 11.4 % (3.8-10.2); PLATELET COUNT 332 K/MM3 (134-434); RDW 14.1 % (11.6-15.6); WHITE BLOOD COUNT 5.6 K/mm3 (4.0-10.0)
[2017-06-04 22:45] LABS: INR 1.2 (0.82-1.09); PROTHROMBIN TIME (PATIENT) 13.6 SEC (9.98-11.88)
[2017-06-04 22:47] LABS: ACTIVATED PTT 30.2 SECONDS (26.9-34.4)
--- NOTE | 2017-06-04 23:16 | PDOC ---
*Physical Exam - Vital Signs Last Vital Signs Temp Pulse Resp BP Pulse Ox 98.7 F 77 20 107/46 100 06/04/17 22:01 06/04/17 21:41 06/04/17 21:41 06/04/17 21:41 06/04/17 21:41 ED Treatment Course - LABORATORY CBC & Chemistry Diagram: 06/04/17 22:20 06/04/17 22:20 - ADDITIONAL ORDERS Additional order review: Laboratory Results 06/04/17 22:20 PT with INR 13.60 H INR 1.20 H PTT (Actin FS) 30.2 06/04/17 22:20 RBC 3.80 MCV 101.1 H MCHC 33.2 RDW 14.1 MPV 8.1 Neutrophils % 70.0 Lymphocytes % 17.2 D Monocytes % 11.4 H Eosinophils % 0.2 D Basophils % 1.2 Medical Decision Making - Medical Decision Making 06/04/17 23:15 agree with care from RAYMOND Valencia 06/05/17 01:11 All studies return to be stable. Chest xray is negative for infiltrate or effusion. Head CT scan is negative. Pt will return to her facility. *DC/Admit/Observation/Transfer Diagnosis at time of Disposition: Dementia - Discharge Dispostion Disposition: HOME Condition at time of disposition: Stable - Referrals - Patient Instructions Printed Discharge Instructions: Dementia Additional Instructions: Ms. Jessica's workup and imaging today were all negative. Her altered mental status is likely only secondary to worsening dementia. Please continue to follow up with PCP for hospice orders and end-of-life care. If she develops any new or worsening symptoms, please return her to the ER. - Post Discharge Activity
[2017-06-04 23:22] LABS: ALBUMIN 2.3 g/dl (3.4-5.0); ANION GAP 8 (8-16); BILIRUBIN,TOTAL 0.4 mg/dL (0.2-1.0); BLOOD UREA NITROGEN 15 mg/dL (7-18); CALCIUM 8.2 mg/dL (8.5-10.1); CHLORIDE 101 mmol/L (98-107); CO2 30 mmol/L (21-32); CREATININE 0.7 mg/dL (0.55-1.02); GLUCOSE,RANDOM 108 mg/dL (74-106); POTASSIUM 4.5 mmol/L (3.5-5.1); SGOT/AST 19 U/L (15-37); SGPT/ALT 14 U/L (12-78); SODIUM 139 mmol/L (136-145); TOT PROT 6.6 g/dl (6.4-8.2)
[2017-06-04 23:24] LABS: ALK PHOS 69 U/L (45-117)
[2017-06-04 23:33] LABS: URINE APPEARANCE CLEAR; URINE BILIRUBIN NEGATIVE (NEGATIVE); URINE BLOOD NEGATIVE (NEGATIVE); URINE COLOR YELLOW; URINE GLUCOSE (UA) NEGATIVE (NEGATIVE); URINE KETONE NEGATIVE (NEGATIVE); URINE LEUK ESTERASE NEGATIVE (NEGATIVE); URINE NITRITE NEGATIVE (NEGATIVE); URINE PROTEIN NEGATIVE (NEGATIVE); URINE UROBILINOGEN NEGATIVE mg/dL (0.2-1.0)
[2017-06-04 23:35] LABS: VENOUS PC02 34.9 mmHg (38-52); VENOUS PH 7.42 (7.32-7.42); VENOUS PO2 73.4 mmHg (28-48)
--- NOTE | 2017-06-05 10:52 | EKG ---
Test Reason : Blood Pressure : / mmHG Vent. Rate : 074 BPM Atrial Rate : 074 BPM P-R Int : 132 ms QRS Dur : 082 ms QT Int : 404 ms P-R-T Axes : 051 032 027 degrees QTc Int : 448 ms NORMAL SINUS RHYTHM POSSIBLE LEFT ATRIAL ENLARGEMENT BORDERLINE ECG WHEN COMPARED WITH ECG OF 04-JAN-2017 10:29, NONSPECIFIC T WAVE ABNORMALITY NO LONGER EVIDENT IN LATERAL LEADS Confirmed by ZOEY PIKE, BELINDA ([id number]) on 06/05/2017 10:52:07 AM Referred By: Confirmed By:BELINDA GREER MD
== END 2017-06-05 04:17 | disposition home or self-care (01) ==
LOC: JER 20:13
DX: F03.90 Unspecified dementia, unspecified severity, without behavioral disturbance, psychotic disturbance, mood disturbance, and anxiety (principal); Q90.9 Down syndrome, unspecified; E03.9 Hypothyroidism, unspecified; I51.9 Heart disease, unspecified
CPT/HCPCS: 36415; 70450-TC; 71045-TC; 80053; 81003; 82550; 82803; 83605; 84484; 85025; 85610; 85730; 86850; 86900; 86901; 87040; 87086; 93005; 93010; 99283-25